=== PATIENT | female | born 1950 | race African-American/Black ===

== ENCOUNTER 2016-11-15 08:19 | Outpatient (CLI) | payer MEDICARE ==
[~2016-11-15] VITALS: Ht 162.6 cm; Wt 84.8 kg
[2016-11-15] VITALS (10 sets, daily range): BP systolic 148–195; BP diastolic 56–80
[2016-11-15] MEDS ORDERED: METO25TA4 PO (08:34)
[2016-11-15] MEDS ORDERED: ATOR20TA58 PO (08:34)
[2016-11-15] MEDS ORDERED: ASPI325T4 PO (08:35)
[2016-11-15] MEDS ORDERED: NITR1PAT9 TD (08:37)
[2016-11-15] MEDS ORDERED: AMLO-254 PO (08:37)
[2016-11-15] MEDS ORDERED: VALS1TAB22 PO (08:37)
[2016-11-15] MEDS ORDERED: MELO-150 PO (08:37)
[2016-11-15 09:10] LABS: BASO # 0.1 x10^3/uL (0.0-0.2); BASO % 1 % (0-3); EOS % 2 % (0-3); HEMATOCRIT 42.3 % (36.0-47.0); HEMOGLOBIN 14.3 g/dL (12.0-15.5); LYMPH # 3.2 x10^3/uL (1.0-4.8); LYMPH % 39 % (24-48); MEAN CORPUSCULAR HEMOGLOBIN 29 pg (25-35); MEAN CORPUSCULAR HGB CONC 34 g/dL (31-37); MEAN CORPUSCULAR VOLUME 86 fL (79-100); MONO % 8 % (0-9); NEUT % 51 % (31-73); PLATELET COUNT 186 x10^3/uL (140-400); RED BLOOD COUNT 4.93 x10^6/uL (3.50-5.40); RED CELL DISTRIBUTION WIDTH 13.8 % (11.5-14.5); WHITE BLOOD COUNT 8.2 x10^3/uL (4.0-11.0)
[2016-11-15 09:25] LABS: CALCIUM 9.2 mg/dL (8.5-10.1); CREATININE 1.2 mg/dL (0.6-1.0); GFR 54.4; POTASSIUM 3.2 mmol/L (3.5-5.1)
[2016-11-15 09:30] LABS: PROTHROMBIN TIME PATIENT 12.8 SEC (11.7-14.0)
[2016-11-15] MEDS ORDERED: IOHEXOL 300 MG/ML 100ML VIAL. ONE (09:53)
[2016-11-15] MEDS ORDERED: LIDOCAINE 1% / SOD BICARB 8.4% 20 ML VIAL. IJ ONE ×2 (09:53→10:30)
[2016-11-15] MEDS ORDERED: IODIXANOL 320MG/ML 50ML VIAL. ONE (09:53)
[2016-11-15] MEDS ORDERED: HEPARIN for ARTERIAL LINE 1,500 ML ONE (09:54)
[2016-11-15] MEDS ORDERED: IODIXANOL 320 MG/ML 100 ML VIAL. ONE (09:54)
[2016-11-15] MEDS ORDERED: MIDAZOLAM HCL/PF 2 MG/2 ML VIAL. ONE (10:14)
[2016-11-15] MEDS ORDERED: FENTANYL PF 100 MCG/2 ML VIAL. ONE (10:14)
--- NOTE | 2016-11-15 10:19 | PDOC ---
MODERATE SEDATION ASSESSMENT RISKS/ALTERNATIVES Risks/Alternatives Risks and alternatives of this type of sedation and procedure discussed with: RISK/ALTERNATIVES: Patient H & P ON CHART H & P H & P on chart and reviewed for co-morbid conditions and appropriate labs. H&P ON CHART: Yes STATUS PREG STATUS ASSESSED: N/A MEDS/ALLERGIES REVIEWED Meds/Allergies Reviewed Medications and Allergies including time and route of recently administered narcotics and sedatives. MEDS/ALLERGIES REVIEWED: Yes ASA RATING ASA RATING: II AIRWAY ASSESSMENT Airway Assessment Airway patency, oral function limitations, presence of caps, crowns, dentures, partials, and ability to extend neck assessed. AIRWAY ASSESSMENT: Yes MALLAMPATI SCORE MALLAMPATI SCORE: II PRE-SEDATION ASSESSMENT PRE-SEDATION ASSESSMENT: Yes MÓNICA ANDREW MD Nov 15, 2016 10:19
--- NOTE | 2016-11-15 10:25 | PDOC1 ---
History and Physical Date of Procedure Date of Admission 11/15/16 Procedure Procedure Abdominal aortogram with bilateral lower extremity angio +/- intervention. Indication Indication 66 YO female smoker, with CAD, HTN, and PAD, with abnormal ABIs and bilateral calf claudication at < 50 feet. Past Medical History Past Medical History See Nursing Pre procedure PMH Past Surgical History Past Surgical History See Nursing Pre procedure PSH. Current Medications Current Medications Current Medications Iodixanol (Visipaque 320) 50 ml STK-MED ONCE .ROUTE ; Start 11/15/16 at 09:53; Stop 11/15/16 at 09:54; Status DC Iohexol (Omnipaque 300 Mg/ml) 100 ml STK-MED ONCE .ROUTE ; Start 11/15/16 at 09: 53; Stop 11/15/16 at 09:54; Status DC Lidocaine/Sodium Bicarbonate 20 ml 20 ml STK-MED ONCE IJ ; Start 11/15/16 at 09: 53; Stop 11/15/16 at 09:54; Status DC Heparin Sodium/ Sodium Chloride 1,500 ml @ As Directed STK-MED ONCE .ROUTE ; Start 11/15/16 at 09:54; Stop 11/15/16 at 09:55; Status DC Iodixanol (Visipaque 320) 100 ml STK-MED ONCE .ROUTE ; Start 11/15/16 at 09:54; Stop 11/15/16 at 09:55; Status DC Fentanyl Citrate (Fentanyl 2ml Vial) 100 mcg STK-MED ONCE .ROUTE ; Start at 10:14; Stop 11/15/16 at 10:15; Status DC Midazolam HCl (Versed) 2 mg STK-MED ONCE .ROUTE ; Start 11/15/16 at 10:14; Stop 11/15/16 at 10:15; Status DC Active Scripts Active Reported NITRO-DUR 0.4mg/hr (Nitroglycerin) 1 Each Patch.td24 1 Each TD Amlodipine-Atorvast 10-10 Mg (Amlodipine/Atorvastatin) 1 Each Tablet 10 Each PO Meloxicam 15 Mg Tablet 1 Tab PO DAILY Diovan Hct 320-25 Mg Tablet (Valsartan/Hydrochlorothiazide) 1 Each Tablet 1 Tab PO DAILY Aspirin 325 Mg Tablet 1 Tab PO DAILY Atorvastatin Calcium 20 Mg Tablet 1 Tab PO DAILY Metoprolol Tartrate 25 Mg Tablet 1 Tab PO BID Allergies Allergies: Coded Allergies: No Known Drug Allergies (Unverified , 11/15/16) Physical Exam Vital Signs Vital Signs Date Time Temp Pulse Resp B/P Pulse Ox O2 Delivery O2 Flow Rate FiO2 11/15/16 09:00 98.1 43 12 168/80 100 Room Air 98.1 Lungs: Clear to auscultation Heart: Regular rate Psych/Mental Status: Mental status NL Vascular 1+ FOREST NURSERY WORKER pulses. Nonpalpable DP/PT pulses. Diagnostic Data/Imaging Images None available Assessment Assessment Hypertensive smoker, with CAD and PAD, with abnormal ABIs and bilateral calf claudication. Problems: Plan Plan Abdominal aortogram with bilateral lower extremity angio +/- intervention. MÓNICA ANDREW MD Nov 15, 2016 10:25
--- NOTE | 2016-11-15 10:26 | PDOC ---
Exam Equipment Superintendent Equipment Superintendent Dominic Desk Operator Desk Operator B Cates Pre-Procedure Diagnosis Pre-Procedure Diagnosis 66 YO female smoker, with CAD, HTN, and PAD, with abnormal ABIs and bilateral calf claudication. Post-Procedure Diagnosis Post-Procedure Diagnosis Bilateral iliac inflow disease. Long segment left SFA chronic occlusion left pop widely patent, with 3 vessel distal r/o Procedure Performed Procedure Performed Abdominal aortogram with left lower extremity angio. Left iliac stent placement Recanalization of left SFA ENGINE LATHE SET UP OPERATOR, with DCB TENTERER. Right lower limb not studied due to contrast limitations Type of Anesthesia Type of Anesthesia Local + Mod sedation Estimated Blood Loss EBL: 50 cc Condition of Patient Condition of Patient Stable. No apparent complication. Disposition Disposition Home from [facility] this afternoon post recovery, if no bleeding or leg ischemia. Plavix daily x 3 months---continue daily ASA indefinitely. Reschedule for right lower extremity angio +/- intervention in 2-4 weeks. Full report to follow. MÓNICA ANDREW MD Nov 15, 2016 10:26
[2016-11-15] MEDS ORDERED: IODIXANOL 320 MG/ML 100 ML VIAL. IART ONE (10:30)
[2016-11-15] MEDS ORDERED: IOHEXOL 300 MG/ML 100ML VIAL. IART ONE (10:30)
[2016-11-15] MEDS ORDERED: FENTANYL PF 100 MCG/2 ML VIAL. IV ONE (10:30)
[2016-11-15] MEDS ORDERED: MIDAZOLAM HCL/PF 2 MG/2 ML VIAL. IV ONE (10:30)
[2016-11-15] MEDS ORDERED: CONTRAST GIVEN MC PRN (10:30)
[2016-11-15] MEDS ORDERED: HEPARIN for IV BOLUS 10,000 UNIT/10 ML VIAL. ONE (11:06)
[2016-11-15] MEDS ORDERED: HEPARIN for IV BOLUS 10,000 UNIT/10 ML VIAL. IV ONE (11:30)
[2016-11-15] MEDS ORDERED: CLOPIDOGREL BISULFATE 75 MG TABLET PO ONE (12:45)
[2016-11-15] MEDS ORDERED: CLOP75TA PO (14:40)
--- NOTE | 2016-11-15 16:35 | RAD ---
Left popliteal fossa region ultrasound, 11/15/2016: History: Swelling, possible hematoma The popliteal fossa region was carefully scanned. Patent popliteal vessels were evident. No abnormal fluid collection is seen to suggest significant hematoma.
[2016-11-16] MEDS ORDERED: CLOPIDOGREL BISULFATE 75 MG TABLET PO SCH (08:00)
--- NOTE | 2016-11-16 13:19 | RAD ---
Abdominal aortogram with selective left lower extremity arteriogram DCB TRIM STENCIL MAKER long segment left SFA chronic total occlusion Left common iliac-external iliac artery stent placement Indication: 66-year-old female smoker with coronary artery disease and hypertension. She has PAD, with reduced ankle-brachial indices bilaterally, and with bilateral calf claudication at less than 50 feet. Diagnostic angiography, with possible intervention, has been requested. Fluoroscopy time: 35.8 minutes Kerma-area Product: 428 Gycm2 Contrast material: 55 cc Omnipaque 300. 135 cc Visipaque 320. Anesthesia: 129 minutes moderate sedation was provided utilizing a total of 5 mg Versed and 250 mcg fentanyl, IV. The patient was appropriately monitored by a qualified independent observer throughout the time of moderate sedation. Consent: The procedure was explained in its entirety to the patient and/or the patient's designated hospital insurance representative by a member of the treatment team. This included a discussion of risks and benefits and commonly accepted alternatives to the procedure, as well as expected consequences of no treatment at all. Discussion of risks included, but was not limited to, those that are most frequent and those that are rare, but possibly severe or life-threatening, as well as the possibility of unforeseen complications. Sterility: All elements of maximal sterile barrier technique were utilized, including cap, mask, sterile gown, sterile gloves, large sterile sheet, appropriate hand hygiene, and 2% chlorhexidine for cutaneous antisepsis. Procedure: Informed consent was obtained from the patient. He was placed supine on the angiography table. Preliminary ultrasound examination of right groin revealed wide patency of right common femoral artery, which was documented with a single hard copy ultrasound image. Right groin was then prepped and draped in the usual sterile fashion, utilizing all elements of maximal sterile barrier technique, as described above. Moderate sedation was provided with IV Versed and fentanyl. Using aseptic technique, local anesthesia, direct ultrasound guidance, and the micropuncture system, a 5 Lithuanian right common femoral artery sheath was successfully introduced. Abdominal aortogram: A 5 Lithuanian Omni Flush catheter was advanced to the right groin sheath into suprarenal abdominal aorta. Omnipaque 300 was injected and abdominal aortogram DSA images were obtained. Findings: Infrarenal abdominal aorta shows atherosclerotic plaquing, including a focal left posterior lateral ulcerative plaque distally. There is no significant stricture or aneurysmal dilatation. There is moderate right and mild left proximal renal artery stenosis. Right kidney appears smaller than contralateral left. CHING is patent, with moderate to high-grade origin stenosis. Oblique pelvis injections: The Omni Flush catheter was withdrawn into distal abdominal aorta, just above bifurcation. Omnipaque 300 was injected and DSA images were obtained in YEMENI and PERES projections. Findings: Aortic bifurcation is widely patent. Focal areas of flow-limiting stenosis lie within a 4-5 cm segment of distal left common iliac artery through proximal left external iliac artery, centered above takeoff of left hypogastric artery, which shows high-grade origin stenosis. Additional moderate stenosis lies within distal left external iliac artery. No significant right common iliac artery stenosis is seen. There is focal ectasia of distal right common iliac artery, near expected takeoff of right hypogastric artery, which is occluded at its origin. There is moderate stenosis within proximal right external iliac artery. Selective left lower extremity arteriogram: The 5 Lithuanian Omni Flush catheter was exchanged for a 4 Lithuanian Cobra 2 catheter, which was advanced across aortic bifurcation over a Glidewire, and was positioned within contralateral left common femoral artery. Visipaque was injected and DSA images were obtained from left groin through left foot. The Cobra catheter was then advanced into proximal left SFA. Visipaque was gently hand injected and DSA images were obtained over left thigh. Findings: Focal calcific plaquing produces moderate narrowing of most distal left common femoral artery and origin of left deep femoral artery. Very small caliber left superficial femoral artery is diffusely and severely diseased, and is completely and chronically occluded within proximal thigh. Multiple deep femoral artery collateral vessels provide reconstitution of distal left SFA, above abductor canal. The reconstituted distal left SFA-popliteal segment is widely patent, without significant stenosis. Left tibial trifurcation is also widely patent, with good three-vessel distal runoff. Recanalization of occluded left SFA: Given this patient's lifestyle limiting calf claudication, decision was made to attempt recanalization of her chronically occluded left superficial femoral artery. The Cobra 2 catheter, previously positioned within the severely diseased proximal left SFA segments was removed over a Acorns advantage guidewire. The 5 Lithuanian right common femoral artery sheath was then exchanged over the advantage wire for a 6 Lithuanian Phil 2 sheath, which was advanced across aortic bifurcation into contralateral left common femoral artery. A Daron Cross catheter was then inserted through the Phil sheath over the advantage wire and was utilized to cross the severely diseased proximal left SFA segment and partially across the chronically occluded mid-distal left SFA segment. The Daron Cross catheter was then exchanged for a 0.035 inch quick cross catheter, which was carefully advanced over a Roadrunner wire through the occluded middistal left SFA segment, into proximal left popliteal artery. Satisfactory intraluminal position of the quick cross catheter within left popliteal artery was confirmed with a contrast injection. 5000 units heparin was then given bolus IV. The quick cross catheter was exchanged over a long grand slam microguidewire for a 2.5 mm x 150 mm Cordis Saber, TRIM STENCIL MAKER balloon, which was utilized to perform initial balloon dilatation from origin left SFA into reconstituted distal left SFA. The saber TRIM STENCIL MAKER balloon was then exchanged over the grand slam wire for a 4 mm x 120 mm Cordis chocolate TRIM STENCIL MAKER balloon, which was utilized to perform prolonged (5 minutes) balloon dilatation of left superficial femoral artery to a peak pressure of 12 maribel. The 4 mm chocolate TRIM STENCIL MAKER balloon was then exchanged over the grand slam wire for a 5 mm x 80 mm chocolate TRIM STENCIL MAKER balloon, which was utilized to perform further prolonged (5 minutes) balloon dilatation of left superficial femoral artery to a peak pressure of 10 maribel. The chocolate TRIM STENCIL MAKER balloon was then deflated and removed. Visipaque was injected through the Phil sheath and post angioplasty DSA images were obtained. These images revealed brisk antegrade flow through the recanalized left superficial femoral artery, without focal significant narrowing, and without complicating dissection. A 5 mm x 150 mm Medtronic's paclitaxel-coated TRIM STENCIL MAKER balloon was then utilized to perform gentle balloon dilatation of middistal left SFA to a peak pressure of 4 maribel for 3 minutes. A new 5 mm x 150 mm Medtronic's paclitaxel-coated TRIM STENCIL MAKER balloon was then utilized to perform balloon dilatation of proximal and mid left superficial femoral artery, again to a peak pressure of 4 maribel for 3 minutes. The drug coated balloon was then deflated and removed. Visipaque was injected through the Phil sheath and completion DSA images were obtained. Those images revealed continued brisk antegrade flow through left SFA-popliteal segment, which was generally small in caliber, but without focal significant stenosis, without flow-limiting dissection, and without distal embolization. Left iliac artery stenting: Following successful recanalization of the chronically occluded left SFA segment, attention was turned to the significant lesions within distal left common iliac and proximal left external iliac arteries. An additional 2500 units heparin was given bolus IV. The 6 Lithuanian Phil 2 sheath, previously positioned within contralateral left common femoral artery, was withdrawn into proximal left common iliac artery over an advantage wire, which was left with this tip within left common femoral artery. Visipaque was injected through the sheath and DSA images were obtained in the PERES projection, well delineating the significant left common-external iliac lesions. A 7 mm x 80 mm conquest TRIM STENCIL MAKER balloon was then advanced through the Ancel sheath over the advantage wire and was utilized to perform preliminary balloon dilatation of the distal common-proximal external iliac stenoses, to a peak pressure of 10 maribel for 3 minutes. The conquest TRIM STENCIL MAKER balloon was then deflated and removed. Post angioplasty images revealed suboptimal angiographic improvement. Therefore, a 10 mm x 60 mm Cordis control Smart stent was advanced through the Ancel sheath over the advantage wire and was successfully deployed across the residual left common iliac-external iliac artery stenoses. Post dilatation of the SMART stent was then performed utilizing a 7 mm x 40 mm conquest TRIM STENCIL MAKER balloon, inflated to a peak pressure of 10 maribel. Post stenting DSA images revealed brisk antegrade flow, with only minimal residual iliac stenosis, without complicating dissection or thrombosis. Right hypogastric artery remained patent, with persistent severe origin stenosis. Patient tolerated the procedures well without apparent complication. Completion physical examination revealed rastafarian of a strongly palpable left dorsalis pedis pulse. The 6 Lithuanian right groin Phil sheath was removed and hemostasis was achieved utilizing the Mynx closure system. Impression: 1. Hemodynamically significant stenoses within distal left common iliac- proximal external iliac artery, for which successful, uneventful percutaneous stenting was performed, following suboptimal percutaneous transluminal angioplasty. 2. 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 3. No abdominal aortic aneurysm. Widely patent left popliteal artery and left tibial trifurcation, with good three-vessel distal runoff. 4. Given bilateral significant claudication, Jazlyn has been tentatively scheduled to return to [facility] IR in 2-4 weeks for angiographic evaluation of right lower extremity, with possible intervention, as indicated.
== END 2016-11-15 16:52 | disposition home or self-care (01) ==
LOC: INTRAD 08:19
PROVIDERS: ATTEND Family Medicine
DX: I73.9 Peripheral vascular disease, unspecified (principal); I70.212 Atherosclerosis of native arteries of extremities with intermittent claudication, left leg; I25.10 Atherosclerotic heart disease of native coronary artery without angina pectoris; I10 Essential (primary) hypertension; E78.00 Pure hypercholesterolemia, unspecified; F41.9 Anxiety disorder, unspecified; F32.9 Major depressive disorder, single episode, unspecified; Z90.710 Acquired absence of both cervix and uterus
CPT/HCPCS: 36415; 37221; 37224; 75625; 75710; 75774; 76882; 76937; 80048; 85027; 85610; C1713; C1725; C1760; C1769; C1892; C1894; C2623; J2250; J3010; Q9967; G0269

== ENCOUNTER 2016-12-13 06:54 | Outpatient (CLI) | payer MEDICARE ==
[2016-12-13] VITALS (10 sets, daily range): BP systolic 155–191; BP diastolic 57–97
[~2016-12-13] VITALS: Ht 162.6 cm; Wt 84.8 kg
[~2016-12-13 06:54] MED LIST: AMLO-254 PO; ASPI325T4 PO; ATOR20TA58 PO; CLOP75TA PO; MELO-150 PO; METO25TA4 PO; NITR1PAT9 TD; VALS1TAB22 PO
[2016-12-13 07:29] LABS: BASO # 0.1 x10^3/uL (0.0-0.2); BASO % 1 % (0-3); EOS % 2 % (0-3); HEMATOCRIT 39.7 % (36.0-47.0); HEMOGLOBIN 13.1 g/dL (12.0-15.5); LYMPH # 2.8 x10^3/uL (1.0-4.8); LYMPH % 37 % (24-48); MEAN CORPUSCULAR HEMOGLOBIN 29 pg (25-35); MEAN CORPUSCULAR HGB CONC 33 g/dL (31-37); MEAN CORPUSCULAR VOLUME 89 fL (79-100); MONO % 8 % (0-9); NEUT % 52 % (31-73); PLATELET COUNT 166 x10^3/uL (140-400); RED BLOOD COUNT 4.48 x10^6/uL (3.50-5.40); RED CELL DISTRIBUTION WIDTH 14.1 % (11.5-14.5); WHITE BLOOD COUNT 7.5 x10^3/uL (4.0-11.0)
[2016-12-13 07:35] LABS: CALCIUM 8.7 mg/dL (8.5-10.1); CREATININE 1.3 mg/dL (0.6-1.0); GFR 49.6; POTASSIUM 3.1 mmol/L (3.5-5.1)
[2016-12-13 07:38] LABS: PROTHROMBIN TIME PATIENT 12.8 SEC (11.7-14.0)
[2016-12-13] MEDS ORDERED: IOHEXOL 300 MG/ML 100ML VIAL. ONE (07:58)
[2016-12-13] MEDS ORDERED: IODIXANOL 320MG/ML 50ML VIAL. ONE (07:58)
[2016-12-13] MEDS ORDERED: HEPARIN for ARTERIAL LINE 1,500 ML ONE (07:59)
[2016-12-13] MEDS ORDERED: LIDOCAINE 1% / SOD BICARB 8.4% 20 ML VIAL. IJ ONE ×2 (07:59→09:15)
[2016-12-13] MEDS ORDERED: IODIXANOL 320 MG/ML 100 ML VIAL. ONE ×2 (07:59→10:03)
[2016-12-13] MEDS ORDERED: MIDAZOLAM HCL/PF 2 MG/2 ML VIAL. ONE (08:45)
[2016-12-13] MEDS ORDERED: HEPARIN for IV BOLUS 10,000 UNIT/10 ML VIAL. ONE (08:46)
[2016-12-13] MEDS ORDERED: fentaNYL PF VIAL 100 MCG/2 ML VIAL ONE (08:46)
[2016-12-13] MEDS ORDERED: MIDAZOLAM HCL/PF 2 MG/2 ML VIAL. IV ONE (09:15)
[2016-12-13] MEDS ORDERED: fentaNYL PF VIAL 100 MCG/2 ML VIAL IV ONE (09:15)
[2016-12-13] MEDS ORDERED: IOHEXOL 300 MG/ML 100ML VIAL. IART ONE ×2 (09:15→11:00)
[2016-12-13] MEDS ORDERED: HEPARIN for IV BOLUS 10,000 UNIT/10 ML VIAL. IV ONE (09:45)
[2016-12-13] MEDS ORDERED: LABETALOL 20 MG/4 ML DISP.SYRIN. ONE (10:27)
[2016-12-13] MEDS ORDERED: LABETALOL 20 MG/4 ML DISP.SYRIN. IVP ONE (10:45)
[2016-12-13] MEDS ORDERED: IODIXANOL 320 MG/ML 100 ML VIAL. IART ONE (11:15)
[2016-12-13] MEDS ORDERED: LABETALOL 20 MG/4 ML DISP.SYRIN. IVP PRN (11:30)
[2016-12-13] MEDS ORDERED: KETOROLAC TROMETHAMINE 30 MG/ML INJ. IV PRN (11:30)
[2016-12-13] MEDS ORDERED: MIDAZOLAM HCL/PF 5 MG/5 ML VIAL. ONE (11:44)
[2016-12-13] MEDS ORDERED: fentaNYL PF VIAL 250 MCG/5 ML VIAL ONE (11:44)
--- NOTE | 2016-12-13 12:39 | PDOC ---
MODERATE SEDATION ASSESSMENT RISKS/ALTERNATIVES Risks/Alternatives Risks and alternatives of this type of sedation and procedure discussed with: RISK/ALTERNATIVES: Patient H & P ON CHART H & P H & P on chart and reviewed for co-morbid conditions and appropriate labs. H&P ON CHART: Yes STATUS PREG STATUS ASSESSED: N/A MEDS/ALLERGIES REVIEWED Meds/Allergies Reviewed Medications and Allergies including time and route of recently administered narcotics and sedatives. MEDS/ALLERGIES REVIEWED: Yes ASA RATING ASA RATING: II AIRWAY ASSESSMENT Airway Assessment Airway patency, oral function limitations, presence of caps, crowns, dentures, partials, and ability to extend neck assessed. AIRWAY ASSESSMENT: Yes MALLAMPATI SCORE MALLAMPATI SCORE: II PRE-SEDATION ASSESSMENT PRE-SEDATION ASSESSMENT: Yes MÓNICA ANDREW MD December 13, 2016 12:39
--- NOTE | 2016-12-13 12:52 | PDOC1 ---
History and Physical Date of Procedure Date of Admission 12/13/16 Procedure Procedure Oblique pelvis + selective rt lower extremity angio +/- intervention, as indicated. Indication Indication 66 yo female with CV risk factors, with known PAD, s/p DCB EMT DISPATCHER of left SFA SLATE PICKER last month for left calf claudication. She represents for angio evaluation +/- endovascular treatment of with persistent right calf claudication. Past Medical History Past Medical History See Nursing Pre procedure PMH Past Surgical History Past Surgical History See Nursing Pre procedure PSH Current Medications Current Medications Current Medications Iodixanol (Visipaque 320) 50 ml STK-MED ONCE .ROUTE ; Start 12/13/16 at 07:58; Stop 12/13/16 at 07:59; Status DC Iohexol (Omnipaque 300 Mg/ml) 100 ml STK-MED ONCE .ROUTE ; Start 12/13/16 at 07: 58; Stop 12/13/16 at 07:59; Status DC Lidocaine/Sodium Bicarbonate (Buffered Lidocaine 1%) 20 ml STK-MED ONCE IJ ; Start 12/13/16 at 07:59; Stop 12/13/16 at 08:00; Status DC Heparin Sodium/ Sodium Chloride 1,500 ml @ As Directed STK-MED ONCE .ROUTE ; Start 12/13/16 at 07:59; Stop 12/13/16 at 08:00; Status DC Iodixanol (Visipaque 320) 100 ml STK-MED ONCE .ROUTE ; Start 12/13/16 at 07:59; Stop 12/13/16 at 08:00; Status DC Midazolam HCl (Versed) 2 mg STK-MED ONCE .ROUTE ; Start 12/13/16 at 08:45; Stop 12/13/16 at 08:46; Status DC Fentanyl Citrate (Fentanyl 2ml Vial) 100 mcg STK-MED ONCE .ROUTE ; Start at 08:46; Stop 12/13/16 at 08:47; Status DC Heparin Sodium (Porcine) (Heparin Sodium) 10,000 unit STK-MED ONCE .ROUTE ; Start 12/13/16 at 08:46; Stop 12/13/16 at 08:47; Status DC Heparin Sodium/ Sodium Chloride 1,000 unit 1X ONCE IART Last administered on t 10:45; Start 12/13/16 at 09:15; Stop 12/13/16 at 09:17; Status DC Lidocaine/Sodium Bicarbonate (Buffered Lidocaine 1%) 20 ml 1X ONCE IJ Last administered on 12/13/16 10:44; Start 12/13/16 at 09:15; Stop 12/13/16 at 09:17 ; Status DC Midazolam HCl (Versed) 2 mg 1X ONCE IV Last administered on 12/13/16 11:12; Start 12/13/16 at 09:15; Stop 12/13/16 at 09:17; Status DC Fentanyl Citrate (Fentanyl 2ml Vial) 100 mcg 1X ONCE IV Last administered on 11:12; Start 12/13/16 at 09:15; Stop 12/13/16 at 09:17; Status DC Iohexol (Omnipaque 300 Mg/ml) 100 ml 1X ONCE IART Last administered on 11:11; Start 12/13/16 at 09:15; Stop 12/13/16 at 09:17; Status DC Heparin Sodium (Porcine) (Heparin Sodium) 5,000 unit 1X ONCE IV Last administered on 12/13/16 11:14; Start 12/13/16 at 09:45; Stop 12/13/16 at 09:46 ; Status DC Iodixanol (Visipaque 320) 100 ml STK-MED ONCE .ROUTE ; Start 12/13/16 at 10:03; Stop 12/13/16 at 10:04; Status DC Labetalol HCl (Normodyne) 20 mg STK-MED ONCE .ROUTE ; Start 12/13/16 at 10:27; Stop 12/13/16 at 10:28; Status DC Labetalol HCl (Normodyne) 20 mg 1X ONCE IVP Last administered on 12/13/16 10: 52; Start 12/13/16 at 10:45; Stop 12/13/16 at 10:46; Status DC Iohexol (Omnipaque 300 Mg/ml) 15 ml 1X ONCE IART ; Start 12/13/16 at 11:00; Stop 12/13/16 at 11:01; Status DC Iodixanol (Visipaque 320) 66 ml 1X ONCE IART Last administered on 12/13/16 11 :18; Start 12/13/16 at 11:15; Stop 12/13/16 at 11:17; Status DC Labetalol HCl (Normodyne) 10 mg PRN Q15MIN PRN IVP HYPERTENSION, SEE COMMENTS; Start 12/13/16 at 11:30; Stop 12/14/16 at 11:29 Clopidogrel Bisulfate (Plavix) 75 mg DAILYWBKFT PO ; Start 12/14/16 at 08:00; Stop 03/16/17 at 08:00 Ketorolac Tromethamine (Toradol) 30 mg 1X PRN PRN IV MODERATE PAIN; Start 12/13 at 11:30; Stop 12/18/16 at 11:29 Midazolam HCl (Versed) 5 mg STK-MED ONCE .ROUTE ; Start 12/13/16 at 11:44; Stop 12/13/16 at 11:45; Status DC Fentanyl Citrate (Fentanyl 5ml Vial) 250 mcg STK-MED ONCE .ROUTE ; Start at 11:44; Stop 12/13/16 at 11:45; Status DC Active Scripts Active Reported Clopidogrel (Clopidogrel Bisulfate) 75 Mg Tablet 1 Tab PO DAILY daily for 3 months NITRO-DUR 0.4mg/hr (Nitroglycerin) 1 Each Patch.td24 1 Each TD Amlodipine-Atorvast 10-10 Mg (Amlodipine/Atorvastatin) 1 Each Tablet 10 Each PO Meloxicam 15 Mg Tablet 1 Tab PO DAILY Diovan Hct 320-25 Mg Tablet (Valsartan/Hydrochlorothiazide) 1 Each Tablet 1 Tab PO DAILY Aspirin 325 Mg Tablet 1 Tab PO DAILY Atorvastatin Calcium 20 Mg Tablet 1 Tab PO DAILY Metoprolol Tartrate 25 Mg Tablet 1 Tab PO BID Allergies Allergies: Coded Allergies: No Known Drug Allergies (Unverified , 11/15/16) Physical Exam Vital Signs Vital Signs Date Time Temp Pulse Resp B/P (MAP) Pulse Ox O2 Delivery O2 Flow Rate FiO2 12/13/16 12:35 50 15 96 Room Air 12/13/16 11:30 3.0 12/13/16 10:52 190/100 12/13/16 07:49 97.7 97.7 Lungs: Clear to auscultation Heart: Regular rate Psych/Mental Status: Mental status NL Vascular 2+ left DP/PT pulses. Nonpalpable right DP/PT pulses. No ischemic foot ulcerations. Diagnostic Data/Imaging Images PMC abdominal aortogram with left leg angio + recanalization of left SFA SLATE PICKER from 11/15/16 reviewed. Moderate left and right EIA stenoses demonstrated on that prior study. Assessment Assessment 66 YO female with CV risk factors, with known PAD, and with persistent right calf claudication. Problems: Plan Plan Oblique pelvis injections to evaluate +/- treat bilateral EIA stenoses. Selective right lower extremity angio +/- intervention upon likely significant rt SFA-POP stenosis/occlusion. MÓNICA ANDREW MD December 13, 2016 12:52
--- NOTE | 2016-12-13 13:04 | PDOC ---
Exam Outside Medical Sales Representative Outside Medical Sales Representative Dominic Scrap Cutter Scrap Cutter B Cates Pre-Procedure Diagnosis Pre-Procedure Diagnosis 66 YO female with CV risk factors, with known PAD, and with persistent right calf claudication. She is s/p endovascular recanalization of left SFA PASTE UP ARTIST last month. She has been rescheduled for angio evaluation of right lower extremity + /- intervention. Post-Procedure Diagnosis Post-Procedure Diagnosis Same. Long segment right SFA-POP PASTE UP ARTIST----Successful Viabahn recanalization. Bilateral EIA moderate 60% stenoses----Successful bilateral Smart stent placement. Procedure Performed Procedure Performed Oblique pelvis angio with selective right lower extremity arteriogram. Viabahn covered stent recanalization of long segment right SFA-POP PASTE UP ARTIST. Bilateral EIA Smart stent placement. Type of Anesthesia Type of Anesthesia Local + Mod sedation Estimated Blood Loss EBL: 50 cc Condition of Patient Condition of Patient Stable. No apparent complication. C/o right thigh pain resulting from right SFA-POP PERIANESTHESIA MANAGER with Viabahn stent deployment--this is not unusual and will likely be self limited. Disposition Disposition Discharge home from [facility] post recovery, if no groin bleeding or leg ischemia. F/u with Dr Grove. Would Rx bilateral lower extremity arterial duplex Doppler U/S surveillance at 3 months, 6 months, and then yearly. DAPT x 3 months. Full report to follow. MÓNICA ANDREW MD December 13, 2016 13:04
--- NOTE | 2016-12-13 15:16 | RAD ---
Oblique pelvis and selective right lower extremity arteriogram NURSE LICENSED PRACTICAL followed by Viabahn covered stenting of long segment right SFA-popliteal chronic total occlusion Right external iliac artery stent placement Left external iliac artery stent placement Indication: 66-year-old female with cardiovascular risk factors, with known PAD, and with persistent right calf claudication. She is status post left common iliac artery stent placement and endovascular recanalization of long segment left SFA chronic total occlusion. She returns now for angiographic evaluation of right lower limb +/- intervention for expected severe right SFA occlusive disease. In addition, the diagnostic arteriogram done last month revealed bilateral external iliac artery stenoses on the order of 60%, for which percutaneous stenting is considered indicated. Fluoroscopy time: 32.1 minutes Kerma-area Product: 394 Gycm2 Contrast material: 15 cc Omnipaque 300. 66 cc Visipaque 320. Anesthesia: 170 minutes moderate sedation was provided utilizing a total of 4. 5 mg Versed and 2.75 mcg fentanyl, IV. The patient was appropriately monitored by a qualified independent observer throughout the time of moderate sedation. Consent: The procedure was explained in its entirety to the patient and/or the patient's designated sales training representative by a member of the treatment team. This included a discussion of risks and benefits and commonly accepted alternatives to the procedure, as well as expected consequences of no treatment at all. Discussion of risks included, but was not limited to, those that are most frequent and those that are rare, but possibly severe or life-threatening, as well as the possibility of unforeseen complications. Sterility: All elements of maximal sterile barrier technique were utilized, including cap, mask, sterile gown, sterile gloves, large sterile sheet, appropriate hand hygiene, and 2% chlorhexidine for cutaneous antisepsis. Procedure: Informed consent was obtained from the patient. She was placed supine on the angiography table. Preliminary ultrasound examination of left groin revealed patency of left common femoral artery, which was documented with a single hard copy ultrasound image. Left groin was then prepped and draped in the usual sterile fashion, utilizing all elements of maximal sterile barrier technique, as described above. Moderate sedation was provided with IV Versed and fentanyl. Using aseptic technique, local anesthesia, direct ultrasound guidance, and the micropuncture system, a 5 Congolese left common femoral artery sheath was successfully introduced. Oblique pelvis injection: A 5 Congolese Omni Flush catheter was advanced through the left groin sheath and was positioned within terminal abdominal aorta, just above bifurcation. Omnipaque 300 was injected and DSA images were obtained over pelvis in the AUSTRALIAN projection. Findings: Mild distal right common iliac artery stenosis and moderate 60% proximal right external iliac artery stenosis are by a short segment of fusiform dilatation, at expected site of completely occluded right hypogastric artery. Right external iliac artery is otherwise widely patent and unremarkable. Previously stented left common iliac artery and proximal left external iliac artery remain widely patent, with continued patency of left hypogastric artery. A focal, moderate, 60% stenosis lies within distal left external iliac artery. Right lower extremity arteriogram: The 5 Congolese Omni Flush catheter was advanced across aortic bifurcation and was positioned within contralateral right common femoral artery. Visipaque was injected and DSA images were obtained from right groin through the proximal-mid calf. Findings: Right common femoral artery and deep femoral artery are widely patent. Proximal 15 cm of right superficial femoral artery is severely and diffusely diseased, followed by abrupt, chronic, total occlusion. Right popliteal artery is reconstituted at abductor canal. Proximal right popliteal artery is diffusely small in caliber, including a focal critical stenosis. Right popliteal artery below upper pole of patella is large in caliber and a widely patent, without significant stenosis. The intervening mid right popliteal artery segment shows generalized 50% narrowing, but without focal lesion. Right tibial trifurcation is widely patent, with three-vessel distal runoff through visualized proximal-mid calf. In the absence of ischemic right foot changes, distal tibial trifurcation runoff was not evaluated to minimize contrast administration. Right SFA-popliteal arterial intervention: Given this patient's significant right calf claudication, the decision was made to proceed with attempted recanalization of her severely disease, long segment right SFA-proximal popliteal artery segment. The Omni Flush catheter, previously positioned within right common femoral artery, was removed over a Eyeonix advantage wire, which was advanced into proximal right SFA. The 5 Congolese left groin sheath was exchanged for a 6 Congolese Phil 2 sheath, which was advanced over the advantage wire across aortic bifurcation into contralateral right common femoral artery. A 0.035 inch quick cross catheter was then inserted through the Ancel sheath over the advantage wire. The quick cross catheter/advantage wire combination was successfully advanced from origin right SFA through mid right SFA segment. The quick cross catheter was then exchanged over the advantage wire for a Daron Cross catheter. The Daron Cross catheter/advantage guidewire combination was then successfully advanced through distal right SFA and proximal right popliteal artery segment into mid right popliteal artery. Satisfactory intraluminal position of the quick cross catheter was confirmed with a contrast injection. Following IV bolus ministration of 5000 is heparin, a Daron Cross catheter was removed over a long grand slam microguidewire. A 2.5 mm x 150 mm Cordis Saber, NURSE LICENSED PRACTICAL balloon was then advanced through the Ancel sheath over the advantage wire and was utilized to perform preliminary balloon dilatation from origin of right SFA through the proximal right popliteal artery. Further balloon dilatation was then sequentially performed utilizing a 3 mm x 120 mm chocolate NURSE LICENSED PRACTICAL balloon, followed by a 5 mm x 120 mm chocolate NURSE LICENSED PRACTICAL balloon. Post angioplasty DSA images revealed recanalization of proximal right SFA through proximal popliteal artery, with persistent areas of significant narrowing and focal dissection. Therefore, Viabahn covered stent placement was considered indicated. A 5 mm x 250 mm Viabahn stent was advanced through the Phil sheath over the grand slam wire and was carefully deployed from proximal right SFA through proximal right popliteal artery. Post dilatation of the Viabahn stent was then performed utilizing a 5 mm x 100 mm Cordis Powerflex NURSE LICENSED PRACTICAL balloon. An overlapping 5 mm x 75 mm Viabahn stent was then successfully deployed across proximal right SFA, with its proximal margin carefully positioned at right SFA origin. Post dilatation of this stent was also performed utilizing the 5 mm x 100 mm Cordis Powerflex NURSE LICENSED PRACTICAL balloon. Visipaque was then injected through the Phil sheath and completion DSA images were obtained. Those images revealed brisk antegrade flow through widely patent, Viabahn stented right SFA-popliteal segment, without complicating dissection, thrombosis, or distal embolization into right tibial trifurcation. Right and left external iliac artery stent placement: Following right SFA-popliteal recanalization, attention was turned to the bilateral 60% external iliac artery stenoses. An additional 2500 units heparin was given bolus IV. The Phil sheath, previously positioned within right common femoral artery was withdrawn over a Eyeonix advantage guidewire into right common iliac artery. A 10 mm x 40 mm Cordis control Smart stent was then advanced over the advantage wire through the Phil sheath and was successfully deployed across the proximal right external iliac artery stenosis. Post dilatation of the stent was then performed utilizing an 8 mm x 40 mm conquest NURSE LICENSED PRACTICAL balloon. The Phil sheath was then further withdrawn over the advantage wire into the most distal segment of ipsilateral left external iliac artery. A 7 mm x 40 mm Cordis control Smart stent was then advanced through the Ancel sheath over the advantage wire, and was carefully deployed across the adjacent 60% distal left external iliac artery stenosis. Post dilatation of this stent was then performed utilizing a 7 mm x 20 mm Cordis extreme NURSE LICENSED PRACTICAL balloon. Completion DSA images revealed wide patency of the external iliac artery stents, without complicating dissection or thrombosis. Patient tolerated the procedure well without apparent complication. Hemostasis was achieved at the left groin puncture site utilizing the Mynx closure system. Impression: 1. Oblique pelvis injection confirmed focal 60% bilateral external iliac artery stenoses, for which successful, uneventful percutaneous stenting was performed, as described 2. Severe long segment right SFA-popliteal chronic occlusive disease, for which successful, uneventful Viabahn covered stenting was performed, as described 3. Widely patent right tibial trifurcation. 4. Dual antiplatelet therapy is recommended for at least 3 months. In addition, I would recommend follow-up arterial duplex Doppler surveillance at 3 months, 6 months, and then yearly.
[2016-12-14] MEDS ORDERED: CLOPIDOGREL BISULFATE 75 MG TABLET PO SCH (08:00)
== END 2016-12-13 14:12 | disposition home or self-care (01) ==
LOC: INTRAD 06:54
PROVIDERS: ATTEND Family Medicine
DX: I70.291 Other atherosclerosis of native arteries of extremities, right leg (principal); E78.00 Pure hypercholesterolemia, unspecified; I10 Essential (primary) hypertension; F41.9 Anxiety disorder, unspecified; I25.10 Atherosclerotic heart disease of native coronary artery without angina pectoris; F32.9 Major depressive disorder, single episode, unspecified; Z72.0 Tobacco use; Z90.710 Acquired absence of both cervix and uterus
CPT/HCPCS: 36415; 37221; 37226; 75710; 75774; 76937; 80048; 85027; 85610; C1713; C1725; C1758; C1769; C1892; C1894; J2250; J3010; J3490; Q9967; G0269

== ENCOUNTER → 2016-12-24 | Outpatient (CLI) | payer MEDICARE ==
[2016-12-13 14:30] VITALS: BP 171/60
--- NOTE | 2016-12-24 08:27 | RAD ---
Indication right thigh pain. Grayscale color Doppler and spectral imaging targeted to the major arterial vessels of the right leg was performed. The right common femoral artery has a monophasic waveform indicative of an inlet disease component. Additionally the peak systolic velocity in the common femoral artery approaches 200 cm/s. Mild stenosis in the vessel is not excluded. The deep femoral artery has a monophasic waveform. Peak systolic velocity is normal. The patient has a stent in the [place] superficial femoral artery which is patent. Monophasic waveforms are seen throughout the stent proximally. This transitions to a biphasic waveform distally in the stent. Monophasic waveform is seen in the popliteal artery. Posterior tibial artery proximally and distally has a monophasic waveform. The peroneal artery similarly is monophasic. Anterior tibial artery has a minimally dampened monophasic waveform with a similar waveform in the dorsal pedal artery. There is a monophasic waveform in the left common femoral artery also indicative of a component of inlet disease IMPRESSION: Probable inlet disease bilaterally. Patent right SFA stent. No high-grade arterial stenosis seen in the major vessels of the right lower extremity
== END | disposition home or self-care (01) ==
LOC: US 08:50
PROVIDERS: ATTEND Family Medicine
DX: M79.651 Pain in right thigh (principal)
CPT/HCPCS: 93926

== ENCOUNTER → 2018-04-16 | Outpatient (CLI) | payer OTHER, MEDICARE ==
[2016-12-13 14:30] VITALS: BP 171/60
[~2018-04-16] MED LIST changes: -AMLO-254 PO; +AMLO-268 PO; -ASPI325T4 PO; +ASPI325T8 PO; -MELO-150 PO; +MELO15TA23 PO
--- NOTE | 2018-04-16 08:31 | RAD ---
Right lower extremity arterial Doppler April 16, 2018 INDICATION: Right thigh pain. COMPARISON: Lower extremity arterial Doppler 21/10/2016. TECHNIQUE: Sonographic evaluation of the right lower extremity arterial system was performed utilizing grayscale, color Doppler and spectral waveform analysis. FINDINGS: Right lower extremity peak systolic velocities: Common femoral artery: 152 cm/s Deep femoral artery: 98 cm/s Superficial femoral artery, proximal: 161 cm/s Superficial femoral artery, mid: 65 cm/s Superficial femoral artery, distal: 85 cm/s Popliteal artery: 52 cm/s Posterior tibial artery, proximal: 66 cm/s Peroneal artery: 53 cm/s Anterior tibial artery: 53 cm/s Dorsalis pedis artery: 42 cm/s ICA thick waveforms are identified from the common femoral artery through the anterior tibial artery. Monophasic waveform identified in the dorsalis pedis artery. A stent is identified involving the common femoral artery and appears patent. Findings overall appear improved since December 24, 2016 with decreased velocities. Scattered areas of atheromatous plaque are noted. IMPRESSION: No evidence for significant stenosis status post stenting graft treatment of the superficial femoral artery. Velocities appear improved since December 24, 2016. Electronically signed by: Abby Arnold MD (04/16/2018 8:27 AM) [id number]
== END | disposition home or self-care (01) ==
LOC: US 06:30
PROVIDERS: ATTEND Family Medicine
DX: I70.291 Other atherosclerosis of native arteries of extremities, right leg (principal); I10 Essential (primary) hypertension; E78.00 Pure hypercholesterolemia, unspecified; I25.10 Atherosclerotic heart disease of native coronary artery without angina pectoris; Z90.710 Acquired absence of both cervix and uterus
CPT/HCPCS: 93926

== ENCOUNTER → 2018-05-11 | Outpatient (CLI) | payer OTHER, MEDICARE ==
[2016-12-13 14:30] VITALS: BP 171/60
[~2018-05-11] MED LIST changes: +BUPIVACAINE MPF 0.5% 10 ML VIAL for KCIC. IJ ONE; +IOHEXOL 300 MG/ML 50 ML VIAL. INT ART ONE; +LIDOCAINE 1% Multi-Dose 20 ML VIAL. ID ONE; +methylPREDNISolone ACETATE 40 MG/ML VIAL. INT ART ONE
--- NOTE | 2018-05-12 09:40 | KCIC ---
PROCEDURE Therapeutic right hip injection using fluoroscopic guidance. HISTORY Hip pain. TECHNIQUE The procedure was explained to the patient as were potential risks, including infection, bleeding or allergic reaction. All questions were answered. Informed written and verbal consent was obtained. The hip was prepped and draped in the usual sterile manner. Following administration of local anesthetic, a 22-gauge spinal needle was advanced into the hip joint without difficulty, with care taken to avoid the vascular structures. Stylet was removed and following negative aspiration, a mixture of 4 cc Omnipaque-300, 2 cc (80 mg) Depo-Medrol, 4 cc bupivacaine and 4 cc 1% lidocaine were injected without difficulty. Fluoroscopy demonstrates uniform and satisfactory distribution of the injection through the hip. The needle was removed. There was good hemostasis at the injection site. The patient left in stable condition without immediate complication. Patient was advised as to potential postprocedural complications and advised to contact their physician or the emergency room in such event. A single spot image was obtained. FLUOROSCOPY TIME: 33 seconds Electronically signed by: Adelso Garcia MD (05/12/2018 9:37 AM) [id number]
== END | disposition home or self-care (01) ==
LOC: KCIC 12:35
PROVIDERS: ATTEND Orthopaedic Surgery Sports Medicine
DX: M25.551 Pain in right hip (principal)
CPT/HCPCS: 20610; 77002; J1030; Q9967

== ENCOUNTER → 2018-07-01 | Outpatient (CLI) | payer OTHER, MEDICARE ==
[2016-12-13 14:30] VITALS: BP 171/60
[~2018-07-01] MED LIST changes: +AMLO10TA6 PO; -BUPIVACAINE MPF 0.5% 10 ML VIAL for KCIC. IJ ONE; +HYDR-2868 PO; -IOHEXOL 300 MG/ML 50 ML VIAL. INT ART ONE; -LIDOCAINE 1% Multi-Dose 20 ML VIAL. ID ONE; +NITR1PAT73 TD; -NITR1PAT9 TD; +TRAM50TA PO; -methylPREDNISolone ACETATE 40 MG/ML VIAL. INT ART ONE
[2018-07-01 14:24] LABS: BILIRUBIN,URINE NEGATIVE (NEG); CLARITY,URINE CLEAR; COLOR,URINE YELLOW; NITRITE,URINE NEGATIVE (NEG); PROTEIN,URINE NEGATIVE (NEG-TRACE)
[2018-07-01 14:38] LABS: HYALINE CASTS, URINE MODERATE /HPF; SQUAMOUS EPITHELIAL CELL,UR MANY /LPF
[2018-07-01 14:39] LABS: BACTERIA,URINE MANY /HPF (0-FEW); RBC,URINE RARE /HPF (0-2)
[2018-07-01 14:58] LABS: BASO # 0.1 x10^3/uL (0.0-0.2); BASO % 2 % (0-3); EOS # 0.1 x10^3/uL (0.0-0.7); EOS % 1 % (0-3); HEMATOCRIT 43.9 % (36.0-47.0); LYMPH # 2.4 x10^3/uL (1.0-4.8); LYMPH % 28 % (24-48); MEAN CORPUSCULAR HEMOGLOBIN 30 pg (25-35); MEAN CORPUSCULAR HGB CONC 34 g/dL (31-37); MEAN CORPUSCULAR VOLUME 88 fL (79-100); MONO # 0.7 x10^3/uL (0.0-1.1); MONO % 9 % (0-9); NEUT # 5.1 x10^3uL (1.8-7.7); NEUT % 61 % (31-73); PLATELET COUNT 200 x10^3/uL (140-400); RED BLOOD COUNT 4.98 x10^6/uL (3.50-5.40); RED CELL DISTRIBUTION WIDTH 14.3 % (11.5-14.5); WHITE BLOOD COUNT 8.4 x10^3/uL (4.0-11.0)
[2018-07-01 15:07] LABS: PROTHROMBIN TIME PATIENT 13.8 SEC (11.7-14.0)
[2018-07-01 15:11] LABS: ALBUMIN 3.5 g/dL (3.4-5.0); CALCIUM 9.7 mg/dL (8.5-10.1); CREATININE 1.2 mg/dL (0.6-1.0); GFR 54.2; POTASSIUM 3.1 mmol/L (3.5-5.1)
--- NOTE | 2018-07-01 16:22 | RAD ---
EXAM: Chest, 2 views. HISTORY: Preoperative evaluation. Pain. COMPARISON: None. FINDINGS: 2 views the chest are obtained. There is no infiltrate, pleural effusion or pneumothorax. The heart is normal in size. IMPRESSION: No acute pulmonary finding. Electronically signed by: Paola Garcia MD (07/01/2018 4:18 PM) [email or web address]
== END | disposition home or self-care (01) ==
LOC: SURGPAT 13:49
PROVIDERS: ATTEND Orthopaedic Surgery Sports Medicine
DX: Z01.818 Encounter for other preprocedural examination (principal); M16.11 Unilateral primary osteoarthritis, right hip
CPT/HCPCS: 36415; 71046; 80048; 81001; 82040; 85025; 85610; 85651; 85730; 87086; 87641

== ENCOUNTER 2018-07-13 06:20 | Inpatient (IN) | payer OTHER, MEDICARE ==
[~2018-07-13] VITALS: Ht 158.8 cm; Wt 93.4 kg
[2018-07-13] VITALS (8 sets, daily range): BP systolic 122–164; BP diastolic 67–82
[~2018-07-13 06:20] MED LIST changes: +HYDROcodone/APAP 7.5/325MG 1 TAB TABLET PO PRN; +MELOXICAM 7.5 MG TABLET PO PRN; +TRANEXAMIC ACID 1,000 MG in IV NS 50ML -- 1ST BAG INJ ONE; +TV=100ml MORPHINE 5 MG, KETOROLAC 30 MG, ROPIVacaine 0.5% PF 60 ML, EPINEPH... INT ART ONE
[2018-07-13] MEDS ORDERED: ROCURONIUM 50 MG/5 ML VIAL. ONE (07:08)
[2018-07-13] MEDS ORDERED: ONDANSETRON PF 4 MG/2 ML VIAL. ONE (07:08)
[2018-07-13] MEDS ORDERED: MIDAZOLAM HCL/PF 2 MG/2 ML VIAL. ONE (07:08)
[2018-07-13] MEDS ORDERED: DEXAMETHASONE SOD PHOS 20 MG/5 ML VIAL. ONE (07:08)
[2018-07-13] MEDS ORDERED: LIDOCAINE 2% PF Vial for OR 5 ML VIAL. ONE (07:08)
[2018-07-13] MEDS ORDERED: fentaNYL PF VIAL 100 MCG/2 ML VIAL ONE ×2 (07:08→08:09)
[2018-07-13] MEDS ORDERED: FAMOTIDINE 20 MG/2 ML VIAL ONE (07:08)
[2018-07-13] MEDS ORDERED: PROCHLORPERAZINE 10 MG/2 ML VIAL. IV PRN (07:15)
[2018-07-13] MEDS ORDERED: PROCHLORPERAZINE 5 MG TABLET. PO PRN (07:15)
[2018-07-13] MEDS ORDERED: MORPHINE SULFATE 4 MG/ML VIAL. IV PRN (07:15)
[2018-07-13] MEDS ORDERED: 0.9 % SODIUM CHLORIDE 10 ML DISP.SYRIN. IV PRN (07:15)
[2018-07-13] MEDS ORDERED: ZOLPIDEM 5 MG TABLET. PO PRN (07:15)
[2018-07-13] MEDS ORDERED: diphenhydrAMINE 50 MG/ML VIAL IV PRN (07:15)
[2018-07-13] MEDS ORDERED: DEXTROSE 50% 25 GM / 50ML DISP.SYRIN. IV PRN (07:15)
[2018-07-13] MEDS ORDERED: CALCIUM CARBONATE 500 MG TAB.CHEW PO PRN (07:15)
[2018-07-13] MEDS ORDERED: fentaNYL PF VIAL 100 MCG/2 ML VIAL IV PRN ×2 (07:15)
[2018-07-13] MEDS ORDERED: METOCLOPRAMIDE HCL 10 MG/2 ML VIAL. IV PRN (07:15)
[2018-07-13] MEDS ORDERED: MORPHINE SULFATE 2 MG/ML VIAL. IV PRN ×2 (07:15→09:30)
[2018-07-13] MEDS ORDERED: oxyCODONE IR 5 MG TABLET PO PRN (07:15)
[2018-07-13] MEDS: IV RINGERS,LACTATED 1000ML 1,000 ML IV SCH ×2 (07:19→20:35)
[2018-07-13] MEDS ORDERED: TRANEXAMIC ACID 1,000 MG in IV NS 50ML -- 2ND BAG INJ ONE (08:00)
[2018-07-13] MEDS ORDERED: LABETALOL 20 MG/4 ML DISP.SYRIN. IVP ONE (08:07)
[2018-07-13] MEDS ORDERED: NEOSTIGMINE METHYLSULFATE 5 MG/5 ML SYRINGE. ONE (08:47)
[2018-07-13] MEDS ORDERED: GLYCOPYRROLATE 1 MG/5 ML VIAL. ONE (08:47)
[2018-07-13] MEDS ORDERED: NON FORMULARY ITEM (Valsartan/Hydrochlorothiazide (Diovan Hct 320-25 Mg Tablet) 1 TAB) PO SCH (09:00)
[2018-07-13] MEDS ORDERED: SEVOFLURANE 61 TO 120 MINUTES. IH ONE (09:07)
[2018-07-13] MEDS ORDERED: IV RINGERS,LACTATED 1000ML 1,000 ML IV SCH (09:24)
--- NOTE | 2018-07-13 09:27 | PDOC4 ---
Operative Note Operative Note Date of procedure: 07/13/2018 Surgeon: Nadir Ortizt.: Manuel Hunter, LORY Preoperative diagnosis: Advanced right hip primary degenerative joint disease Postoperative diagnosis: Same Procedure performed: Right total hip arthroplasty Anesthesia: Gen. Findings: Advanced primary degenerative joint disease of right hip Blood loss: 100 mL Complications: None Components inserted: Carroll and nephew anthology size 1 standard offset stem with a 50 mm R3 acetabular shell and a 20 posteriorly directed elevated liner, 32+0 cobalt chrome head Reason for procedure: Patient is a very pleasant individual who had seen and evaluated in my outpatient orthopedic surgery clinic. Clinical and radiographic examination were consistent with the above preoperative diagnosis and after discussion of the risks, benefits, alternatives, they wish proceed with the operation. Description of procedure: Patient was greeted in the preoperative area by myself for the correct extremity was verified and marked. Patient was taken back to the operative suite, antibiotic started as a were brought back. Once in the operating room, the patient was transferred gently supine to the operating table and secured the bed with all pressure points padded after successful induction of a general anesthetic and they were positioned in the lateral decubitus position with the operative side up. Down pressure points were padded. Patient secured to the bed with our hip positioning device. Axillary roll was used. Standard preoperative timeout was conducted. Right lower extremity was prepped and draped in our usual sterile fashion including an [place]. I palpated and marked surface anatomy and rancho a line for my planned posterolateral skin incision. Skin was incised scalpel and dissected subcutaneous tissue until identified the fascia with electrocautery. Hemostasis was achieved also with electrocautery. The fascia was incised in line with the skin incision and gluteus gustavo split bluntly in line with its fibers,after a Whaley elevator was used to sweep aside adherent subcutaneous tissue for later identification and repair. I then placed the Charnley retractor. After this, I swept bursal tissue posteriorlyand took down the quadratus and piriformis and take the piriformis for later repair. The hip capsule was incised in a T-type incision and ends of this were tagged as well. I dislocated the hip and made miranda at the greater and lesser trochanters as well as center femoral head and measured my length and offset. I then palpated and made my neck cut 1 cm proximal lesser trochanter delivered the bony remnant and head from the operative field. I then inspected the acetabulum. Identified her transverse acetabular ligament. I removed soft tissue from the floor of the acetabulum. Some of the labrum was excised. I then positioned my acetabular retractors and began reaming, I reamed up to a 50 which gave a good punctate bleeding bony bed. After this, I thoroughly irrigated the operative field and impacted my cup in a position referencing her [place]ct[place] anatomy and the crossbar attachment. After seating it, I palpated for her greater sciatic notch and then placed a screw into her posterior column. I then irrigated everything out again and impacted my polyethylene liner into position. I then repositioned the leg, placed my proximal femoral elevator, and used my jennifer cutting osteotome followed by my lateralizing reamer followed by my canal finding reamer. I then began broaching and broached to a size 2, but was reduced the hip with a head and neck in place with the size [address] and therefore remove the size 2, replaced the size 1 placed the standard neck and trialed different head sizes. With the +0, I was able to reduce her hip. I felt her leg lengths were appropriate. This helped restore my measurements. She had good range of motion and stability. I then removed all trial components and thoroughly irrigated the femoral canal and impacted my size 1 stem into position. I then re-trialed but selected the + 0. I redislocated the hip and washed and dried the Bethea taper region and then impacted my cobalt chrome head and position. I irrigated the operative field again and then reduced the hip. I then closed capsule after testing range of motion stability and leg lengths. Capsule was closed with simple interrupted #2 Ethibond. Piriformis was reapproximated through drill tunnels. I then injected my periarticular mixture into the jose rafael-incisional soft tissues. Fascia was closed with running #2 Quill . Inverted interrupted #1 Vicryl was used for the deep subcutaneous tissue and inverted interrupted 2-0 Vicryl was used for the more superficial subcutaneous tissue. Running 4-0 Monocryl in a buried subcuticular fashion was used for skin. Prior to wound closure, all counts correct 2. No complications. At the conclusion of the surgery, the hip was cleansed and dried and our incisional wound VAC was applied. Patient was laid supine and transferred gently supine to the hospital bed. Patient was then taken to the PACU in a stable and extubated condition.Postoperative plan is to admit the patient to the [facility] for DVT and about a prophylaxis as well as to begin their rehabilitation. NADIR BACA II, MD Jul 13, 2018 09:27
[2018-07-13] MEDS ORDERED: ONDANSETRON PF 4 MG/2 ML VIAL. IV PRN (09:30)
[2018-07-13] MEDS ORDERED: HYDROmorphone 2 MG/ML VIAL IV PRN (09:30)
[2018-07-13] MEDS ORDERED: LIDOCAINE 1% PF 2 ML VIAL. ID PRN (09:30)
[2018-07-13] MEDS ORDERED: IPRATRPIUM/ALBUTEROL 0.5/2.5MG 3 ML NEBU. ONE (09:36)
[2018-07-13] MEDS: fentaNYL PF VIAL 100 MCG/2 ML VIAL IV PRN ×5 (09:50→11:10)
--- NOTE | 2018-07-13 10:57 | RAD ---
PELVIS Clinical Indication: POST-OP RIGHT HIP Comparison: AP pelvis and right hip, May 05, 2018. Findings: There is new right hip arthroplasty. On single AP view the alignment is anatomic. No acute fracture is identified. There is subcutaneous air lateral to the right hip. Left hip joint appears intact. There are multiple phleboliths in the pelvis. There are bilateral iliac artery stents. There are stents of the right femoral artery. IMPRESSION: Post right hip arthroplasty. No acute fracture. Electronically signed by: Pantera Lazo MD (07/13/2018 10:53 AM) [id number]
[2018-07-13] MEDS ORDERED: IPRATRPIUM/ALBUTEROL 0.5/2.5MG 3 ML NEBU. NEB PRN (11:30)
[2018-07-13] MEDS ORDERED: IV NORMAL SALINE 1000ML BAG 1,000 ML IV SCH (12:00)
[2018-07-13] MEDS: ONDANSETRON PF 4 MG/2 ML VIAL. IV SCH ×3 (12:00→16:06)
[2018-07-13] MEDS: ONDANSETRON ODT 4 MG TAB.RAPDIS. PO SCH ×2 (12:00→18:00)
[2018-07-13] MEDS: INSULIN LISPRO 300 UNITS/3 ML INSULN.PEN. SQ SCH ×2 (12:00→16:13)
[2018-07-13] MEDS ORDERED: WARFARIN 7.5 MG TABLET. PO ONE (16:00)
[2018-07-13] MEDS: FERROUS SULFATE 325 MG TABLET. PO SCH (16:14)
[2018-07-13] MEDS: ATORVASTATIN CALCIUM 20 MG TABLET PO SCH (20:24)
[2018-07-13] MEDS: hydrALAZINE 25 MG TABLET PO SCH (20:25)
[2018-07-13] MEDS: METOPROLOL TART IMMED RELEASE 25 MG TABLET. PO SCH (20:26)
[2018-07-14] MEDS: ONDANSETRON ODT 4 MG TAB.RAPDIS. PO SCH ×3 (00:45→06:48)
[2018-07-14] MEDS: ONDANSETRON PF 4 MG/2 ML VIAL. IV SCH ×2 (00:45→06:47)
[2018-07-14] MEDS: oxyCODONE IR 5 MG TABLET PO PRN ×3 (00:57→14:22)
[2018-07-14 01:25] VITALS: BP 153/66
[2018-07-14 05:05] LABS: PROTHROMBIN TIME PATIENT 15.6 SEC (11.7-14.0)
[2018-07-14] MEDS ORDERED: MAGNESIUM HYDROXIDE 2,400 MG/30 ML ORAL.SUSP. PO PRN (06:00)
[2018-07-14] MEDS: traMADol 50 MG TABLET PO SCH ×4 (06:47→23:43)
[2018-07-14 07:00] VITALS: BP 143/81
[2018-07-14] MEDS: INSULIN LISPRO 300 UNITS/3 ML INSULN.PEN. SQ SCH ×3 (07:32→17:00)
[2018-07-14] MEDS: FERROUS SULFATE 325 MG TABLET. PO SCH ×2 (07:53→17:52)
[2018-07-14] MEDS: SENNOSIDES/DOCUSATE 8.6/50MG TABLET. PO SCH (07:53)
[2018-07-14] MEDS: MULTIVITAMIN with MINERAL TABLET. PO SCH (07:53)
[2018-07-14] MEDS: ACETAMINOPHEN 500 MG TABLET PO SCH ×3 (07:53→20:51)
[2018-07-14] MEDS: MELOXICAM 7.5 MG TABLET PO SCH (07:54)
[2018-07-14] MEDS: POLYETHYLENE GLYCOL 3350 17 GM PACKET. PO PRN (07:59)
[2018-07-14] MEDS: hydroCHLOROthiazide 25 MG TABLET PO SCH (08:00)
[2018-07-14] MEDS: LOSARTAN POTASSIUM 50 MG TABLET. PO SCH (08:00)
[2018-07-14] MEDS: hydrALAZINE 25 MG TABLET PO SCH ×2 (08:00→20:45)
[2018-07-14] MEDS: amLODIPine BESYLATE 10 MG TABLET PO SCH (08:01)
[2018-07-14] MEDS: METOPROLOL TART IMMED RELEASE 25 MG TABLET. PO SCH ×2 (08:01→20:46)
[2018-07-14 08:06] VITALS: BP 145/94
--- NOTE | 2018-07-14 08:39 | PDOC ---
ORTHO PROGRESS NOTES Subjective Had trouble moving foot last night, but resolved now, pain ok Vitals Vital Signs Date Time Temp Pulse Resp B/P (MAP) Pulse Ox O2 Delivery O2 Flow Rate FiO2 07/14/18 08:06 65 145/94 (111) 07/14/18 07:54 Room Air 07/14/18 07:37 20 07/14/18 07:00 98.2 96 98.2 07/14/18 01:59 2.0 Labs Laboratory Tests Test 07/13/18 06:30 07/13/18 06:55 07/13/18 09:59 07/13/18 16:09 Prothrombin Time 13.0 SEC (11.7-14.0) Prothromb Time International Ratio 1.0 (0.8-1.1) Activated Partial Thromboplast Time 35 SEC (24-38) Glucose (Fingerstick) 107 mg/dL (70-99) 144 mg/dL (70-99) 112 mg/dL (70-99) Test 07/13/18 21:24 07/14/18 04:35 07/14/18 04:40 07/14/18 06:55 Glucose (Fingerstick) 136 mg/dL (70-99) 123 mg/dL (70-99) Hemoglobin 13.0 g/dL (12.0-15.5) Hematocrit 40.0 % (36.0-47.0) Mean Corpuscular Hemoglobin Concent 32 g/dL (31-37) Prothrombin Time 15.6 SEC (11.7-14.0) Prothromb Time International Ratio 1.3 (0.8-1.1) Laboratory Tests Test 07/13/18 09:59 07/13/18 16:09 07/13/18 21:24 07/14/18 04:35 Glucose (Fingerstick) 144 mg/dL (70-99) 112 mg/dL (70-99) 136 mg/dL (70-99) Hemoglobin 13.0 g/dL (12.0-15.5) Hematocrit 40.0 % (36.0-47.0) Mean Corpuscular Hemoglobin Concent 32 g/dL (31-37) Test 07/14/18 04:40 07/14/18 06:55 Prothrombin Time 15.6 SEC (11.7-14.0) Prothromb Time International Ratio 1.3 (0.8-1.1) Glucose (Fingerstick) 123 mg/dL (70-99) Notes A and A normal motor and sensation in RLE dressing intact Assessment and Plan PT/OT as normal TONY BACA II, MD Jul 14, 2018 08:39
[2018-07-14] MEDS ORDERED: ONDANSETRON PF 4 MG/2 ML VIAL. IV PRN (12:00)
[2018-07-14] MEDS ORDERED: ONDANSETRON ODT 4 MG TAB.RAPDIS. PO PRN (12:00)
[2018-07-14] MEDS ORDERED: BISACODYL 10 MG SUPP.RECT. PR PRN (16:00)
[2018-07-14] MEDS ORDERED: WARFARIN 5 MG TABLET. PO ONE (16:00)
[2018-07-14 18:21] VITALS: BP 132/86
[2018-07-14] MEDS: ATORVASTATIN CALCIUM 20 MG TABLET PO SCH (20:45)
[2018-07-15] MEDS: ACETAMINOPHEN 500 MG TABLET PO SCH ×4 (03:18→20:41)
[2018-07-15] MEDS: traMADol 50 MG TABLET PO SCH ×3 (05:29→18:09)
[2018-07-15 06:12] LABS: HEMATOCRIT 35.5 % (36.0-47.0); HEMOGLOBIN 11.9 g/dL (12.0-15.5)
[2018-07-15 06:23] LABS: PROTHROMBIN TIME PATIENT 18.9 SEC (11.7-14.0)
[2018-07-15 06:24] VITALS: BP 122/82
[2018-07-15] MEDS: POLYETHYLENE GLYCOL 3350 17 GM PACKET. PO PRN (07:08)
[2018-07-15] MEDS: hydroCHLOROthiazide 25 MG TABLET PO SCH (07:53)
[2018-07-15] MEDS: METOPROLOL TART IMMED RELEASE 25 MG TABLET. PO SCH ×2 (07:54→20:42)
[2018-07-15] MEDS: MULTIVITAMIN with MINERAL TABLET. PO SCH (07:54)
[2018-07-15] MEDS: hydrALAZINE 25 MG TABLET PO SCH ×2 (07:55→20:41)
[2018-07-15] MEDS: FERROUS SULFATE 325 MG TABLET. PO SCH ×2 (07:55→16:43)
[2018-07-15] MEDS: SENNOSIDES/DOCUSATE 8.6/50MG TABLET. PO SCH (07:55)
[2018-07-15] MEDS: MELOXICAM 7.5 MG TABLET PO SCH (07:55)
[2018-07-15] MEDS: amLODIPine BESYLATE 10 MG TABLET PO SCH (07:56)
[2018-07-15] MEDS: LOSARTAN POTASSIUM 50 MG TABLET. PO SCH (07:56)
[2018-07-15] MEDS: INSULIN LISPRO 300 UNITS/3 ML INSULN.PEN. SQ SCH ×3 (07:56→17:00)
[2018-07-15] MEDS ORDERED: MAGNESIUM HYDROXIDE 2,400 MG/30 ML ORAL.SUSP. PO PRN (10:00)
--- NOTE | 2018-07-15 12:32 | DISCH ---
DISCHARGE WITH HOME HEALTH DISCHARGE INFORMATION: Discharge Date: Jul 16, 2018 Final Diagnosis: Advanced right hip primary degenerative joint disease Condition on Discharge: Stable CODE STATUS: Code Status: Full HOME HEALTH: Face to Face: I certify this patient is under my care and that I, or a nurse practitioner or physician's assistant director of plant operations working with me, had a face to face encounter that meets the physician face to face encounter requirements with this patient on []. Medical Complications: S/P Joint Replacement Physical Therapy For: Evalulation/Treatment Occupational Therapy For: Evaluation/Treatment Pt Meets Homebound Status: Poor coordination w/ amb., Unsteady balance w/ amb, POST DISCHARGE ORDERS: Activity Instructions for Disc: Activity as tolerated Weight Bearing Status after Di: No restrictions Wound/Incision Care: Keep wound/cast CDI FOLLOW-UP: Follow up with: Zofia in 2wks Warfarin Follow UP: Pharmacy CERTIFICATION STATEMENT: Certification Statement: Certification Statement: Based on the above finding, I certify that this patient is confined to the home and needs intermittent custodial care, physical therapy and/or speech therapy, or continues to need occupational therapy.~ This patient is under my care, and I have initiated the establishment of the plan of care.~ This patient will be followed by myself or a community physician who will periodically review the plan of care. Home Meds Reported Medications Hydralazine Hcl (HYDRALAZINE HCL) 25 Mg Tablet, 1 TAB PO BID for BLOOD PRESSURE CONTROL, #180 TAB 3 Refills 06/24/18 Amlodipine Besylate (AMLODIPINE BESYLATE) 10 Mg Tablet, 10 MG PO DAILY for BLOOD PRESSURE CONTROL, TAB 06/24/18 Tramadol Hcl (TRAMADOL HCL) 50 Mg Tablet, 50 MG PO DAILY PRN for PAIN, TAB 06/24/18 Valsartan/Hydrochlorothiazide (DIOVAN HCT 320-25 MG TABLET) 1 Each Tablet, 1 TAB PO DAILY, #30 TAB 5 Refills 11/15/16 Atorvastatin Calcium (ATORVASTATIN CALCIUM) 20 Mg Tablet, 1 TAB PO DAILY, #30 TAB 5 Refills 11/15/16 Metoprolol Tartrate (METOPROLOL TARTRATE) 25 Mg Tablet, 1 TAB PO BID, #180 TAB 1 Refill 11/15/16 Discontinued Reported Medications Aspirin (ASPIRIN) 325 Mg Tablet, 1 TAB PO DAILY, #30 TAB 5 Refills 11/15/16 TONY BACA II, MD Jul 15, 2018 12:32
--- NOTE | 2018-07-15 12:33 | PDOC ---
ORTHO PROGRESS NOTES Subjective Her pain is doing better today. She feels like she is making good progress with therapy no new complaints Vitals Vital Signs Date Time Temp Pulse Resp B/P (MAP) Pulse Ox O2 Delivery O2 Flow Rate FiO2 07/15/18 12:07 Room Air 07/15/18 07:56 91 122/82 07/15/18 06:30 20 07/15/18 06:24 98.1 97 98.1 Labs Laboratory Tests Test 07/13/18 16:09 07/13/18 21:24 07/14/18 04:35 07/14/18 04:40 Glucose (Fingerstick) 112 mg/dL (70-99) 136 mg/dL (70-99) Hemoglobin 13.0 g/dL (12.0-15.5) Hematocrit 40.0 % (36.0-47.0) Mean Corpuscular Hemoglobin Concent 32 g/dL (31-37) Prothrombin Time 15.6 SEC (11.7-14.0) Prothromb Time International Ratio 1.3 (0.8-1.1) Test 07/14/18 06:55 07/15/18 04:40 07/15/18 07:21 Glucose (Fingerstick) 123 mg/dL (70-99) 109 mg/dL (70-99) Hemoglobin 11.9 g/dL (12.0-15.5) Hematocrit 35.5 % (36.0-47.0) Mean Corpuscular Hemoglobin Concent 33 g/dL (31-37) Prothrombin Time 18.9 SEC (11.7-14.0) Prothromb Time International Ratio 1.6 (0.8-1.1) Laboratory Tests Test 07/15/18 04:40 07/15/18 07:21 Hemoglobin 11.9 g/dL (12.0-15.5) Hematocrit 35.5 % (36.0-47.0) Mean Corpuscular Hemoglobin Concent 33 g/dL (31-37) Prothrombin Time 18.9 SEC (11.7-14.0) Prothromb Time International Ratio 1.6 (0.8-1.1) Glucose (Fingerstick) 109 mg/dL (70-99) Notes She is awake and alert and in therapy. Normal motor and sensation right lower extremity. Dressing is intact Assessment and Plan Home with home health care tomorrow. She will continue PT and OT and Coumadin TONY BACA II, MD Jul 15, 2018 12:33
[2018-07-15] MEDS: oxyCODONE IR 5 MG TABLET PO PRN (12:52)
--- NOTE | 2018-07-15 14:12 | PATHOLOGY ---
[facility] Accession Number: [id number] . 01 Material submitted: . RIGHT HIP BONE . 01 Clinical history: . Osteoarthritis right hip . 02 Diagnosis: Femoral head, right total hip replacement: - Advanced degenerative arthritis. (JPM:briseida; 07/15/2018) QMS/07/15/2018 . 02 Comment: There is no evidence of malignancy. . 02 Electronically signed: . Niraj Jeffers MD, Pathologist NPI- [id number] . 01 Gross description: . Received in formalin labeled "Jazlyn Acharya, right hip bone," is a femoral head measuring 4.5 x 4.5 x 5.8 cm in greatest dimensions. The articular surface is smooth to granular and pale thakkar to dark brown in appearance, displaying an area of focal eburnation measuring 1.8 x 0.6 cm. Sectioning reveals cancellous, pale yellow to largely hemorrhagic cut surfaces. The specimen is submitted representatively in cassette A1, following decalcification. (DAC; 07/14/2018) XDC/XDC . 02 Pathologist provided ICD-10: M16.11 . 02 CPT . 316150, [id number] Specimen Comment: A courtesy copy of this report has been sent to Specimen Comment: [phone], . Specimen Comment: Report sent to / DR HOLLINGSWORTH Performed at: 01 [facility] [address], [place] [id number] MD Paul Bell MD Phone: [phone] Performed at: 02 [facility] [address], [place] [id number] MD Niraj Jeffers MD Phone: [phone]
[2018-07-15] MEDS ORDERED: WARFARIN 3 MG TABLET. PO ONE (16:00)
[2018-07-15 18:03] VITALS: BP 137/82
[2018-07-15] MEDS: ATORVASTATIN CALCIUM 20 MG TABLET PO SCH (20:40)
[2018-07-15] MEDS ORDERED: MORPHINE SULFATE 4 MG/ML VIAL. IV PRN (22:10)
[2018-07-16] MEDS: traMADol 50 MG TABLET PO SCH ×3 (00:29→11:52)
[2018-07-16] MEDS: ACETAMINOPHEN 500 MG TABLET PO SCH ×2 (03:36→09:16)
[2018-07-16 05:42] LABS: HEMATOCRIT 37.3 % (36.0-47.0); HEMOGLOBIN 12.5 g/dL (12.0-15.5)
[2018-07-16 05:58] LABS: PROTHROMBIN TIME PATIENT 19.4 SEC (11.7-14.0)
[2018-07-16 07:00] VITALS: BP 131/83
[2018-07-16] MEDS: INSULIN LISPRO 300 UNITS/3 ML INSULN.PEN. SQ SCH ×2 (08:00→11:49)
--- NOTE | 2018-07-16 08:54 | PDOC ---
ORTHO PROGRESS NOTES Subjective She tells me she rested well. She feels that her pain is better. Vitals Vital Signs Date Time Temp Pulse Resp B/P (MAP) Pulse Ox O2 Delivery O2 Flow Rate FiO2 07/16/18 07:00 98.1 90 18 131/83 (99) 98 98.1 07/16/18 06:27 Room Air Labs Laboratory Tests Test 07/15/18 04:40 07/15/18 07:21 07/16/18 04:40 Hemoglobin 11.9 g/dL (12.0-15.5) 12.5 g/dL (12.0-15.5) Hematocrit 35.5 % (36.0-47.0) 37.3 % (36.0-47.0) Mean Corpuscular Hemoglobin Concent 33 g/dL (31-37) 33 g/dL (31-37) Prothrombin Time 18.9 SEC (11.7-14.0) 19.4 SEC (11.7-14.0) Prothromb Time International Ratio 1.6 (0.8-1.1) 1.7 (0.8-1.1) Glucose (Fingerstick) 109 mg/dL (70-99) Laboratory Tests Test 07/16/18 04:40 Hemoglobin 12.5 g/dL (12.0-15.5) Hematocrit 37.3 % (36.0-47.0) Mean Corpuscular Hemoglobin Concent 33 g/dL (31-37) Prothrombin Time 19.4 SEC (11.7-14.0) Prothromb Time International Ratio 1.7 (0.8-1.1) Notes She is awake and alert and lying in bed. Dressing is intact. Normal motor and sensation are present in her right lower extremity Assessment and Plan She is okay to be discharged home with home health care today. I will see her back in clinic in 2 weeks TONY BACA II, MD Jul 16, 2018 08:54
--- NOTE | 2018-07-16 08:55 | PDOC3 ---
Discharge Summary Visit Information Date of Admission: Jul 13, 2018 Date of Discharge: Jul 16, 2018 Admitting Diagnosis: advanced right hip primary degenerative joint disease Brief Hospital Course Allergies Allergies Coded Allergies Type Severity Reaction Last Updated Verified No Known Drug Allergies 07/13/18 No Vital Signs Vital Signs Date Time Temp Pulse Resp B/P (MAP) Pulse Ox O2 Delivery O2 Flow Rate FiO2 07/16/18 07:00 98.1 90 18 131/83 (99) 98 98.1 07/16/18 06:27 Room Air Lab Results Laboratory Tests Test 07/15/18 04:40 07/15/18 07:21 07/16/18 04:40 Hemoglobin 11.9 g/dL (12.0-15.5) 12.5 g/dL (12.0-15.5) Hematocrit 35.5 % (36.0-47.0) 37.3 % (36.0-47.0) Mean Corpuscular Hemoglobin Concent 33 g/dL (31-37) 33 g/dL (31-37) Prothrombin Time 18.9 SEC (11.7-14.0) 19.4 SEC (11.7-14.0) Prothromb Time International Ratio 1.6 (0.8-1.1) 1.7 (0.8-1.1) Glucose (Fingerstick) 109 mg/dL (70-99) Laboratory Tests Test 07/16/18 04:40 Hemoglobin 12.5 g/dL (12.0-15.5) Hematocrit 37.3 % (36.0-47.0) Mean Corpuscular Hemoglobin Concent 33 g/dL (31-37) Prothrombin Time 19.4 SEC (11.7-14.0) Prothromb Time International Ratio 1.7 (0.8-1.1) Brief Hospital Course Ms. Acharya is a 67 old female who presented to my outpatient orthopedic surgery clinic with complaints of severe and progressive pain that failed conservative therapies including injections. We had a discussion of the risks, benefits, alternatives to total hip arthroplasty and she elected to proceed. She tolerated surgery well and recovered well from anesthesia in the PACU. She was then taken to the joint Center for care and observation. She did receive PT , OT, DVT and antibiotic prophylaxis. She recovered well from surgery and remained hemodynamically stable and afebrile throughout the hospitalization. Pain was controlled on oral pain medicine at the time of discharge. Good progress was made with therapy throughout the hospitalization, and activities of daily living were accomplished by the patient. The incision was clean dry and intact and the operative extremity had normal motor and sensation. Discharge Information Condition at Discharge: Stable Follow Up: Weeks Disposition/Orders: D/C to Home w/ HH Scheduled Amlodipine Besylate (Amlodipine Besylate) 10 Mg Tablet, 10 MG PO DAILY for BLOOD PRESSURE CONTROL, (Reported) Entered as Reported by: DIANA DUNN on 06/24/181727 Last Taken: Unknown Dose on 07/13/18499 Last Action: Continued on 07/13 by SP BACA MD Atorvastatin Calcium (Atorvastatin Calcium) 20 Mg Tablet, 1 TAB PO DAILY, #30 Ref 5 (Reported) Entered as Reported by: Risa Santos on 11/15/16833 Last Taken: Unknown Dose on 07/12/18 Last Action: Continued on 07/13/18706 by SP BACA MD Hydralazine Hcl (Hydralazine Hcl) 25 Mg Tablet, 1 TAB PO BID for BLOOD PRESSURE CONTROL, #180 Ref 3 (Reported) Entered as Reported by: DIANA DUNN on 06/24/181727 Last Taken: Unknown Dose on 07/13/18499 Last Action: Converted on 07/13 by SP BACA MD Metoprolol Tartrate (Metoprolol Tartrate) 25 Mg Tablet, 1 TAB PO BID, #180 Ref 1 (Reported) Entered as Reported by: Risa Santos on 11/15/16833 Last Taken: Unknown Dose on 07/13/18499 Last Action: Continued on 07/13 by SP BACA MD Valsartan/Hydrochlorothiazide (Diovan Hct 320-25 Mg Tablet) 1 Each Tablet, 1 TAB PO DAILY, #30 Ref 5 (Reported) Entered as Reported by: Risa Santos on 11/15/16836 Last Taken: Unknown Dose on 07/12/18 Last Action: Converted on 07/13/18706 by SP BACA MD Scheduled PRN Tramadol Hcl (Tramadol Hcl) 50 Mg Tablet, 50 MG PO DAILY PRN for PAIN, (Reported ) Entered as Reported by: DIANA DUNN on 06/24/18 1526 Last Taken: Unknown Dose on 07/12/18 Last Action: HELD on 07/13/18706 by SP BACA MD Discontinued Medications Aspirin (Aspirin) 325 Mg Tablet, 1 TAB PO DAILY, #30 Ref 5 (Reported) Entered as Reported by: Risa Danielle on 11/15/16 0835 Last Taken: Unknown Dose on 07/06/18 Last Action: HELD on 07/13/18706 by SP BACA MD Patient Instructions Patient Instructions She will be discharged home. Home health care has been set up. We will get her started on outpatient therapy as soon as we are able. The patient will be on Coumadin for a month. She can weight-bear as tolerated. Worrisome signs and symptoms that should prompt a phone call to my office were discussed. We' ll see her back in 2 weeks, sooner should a problem arise. TONY BACA II, MD Jul 16, 2018 08:55
[2018-07-16] MEDS: MELOXICAM 7.5 MG TABLET PO SCH (09:15)
[2018-07-16] MEDS: FERROUS SULFATE 325 MG TABLET. PO SCH (09:16)
[2018-07-16] MEDS: hydroCHLOROthiazide 25 MG TABLET PO SCH (09:16)
[2018-07-16] MEDS: LOSARTAN POTASSIUM 50 MG TABLET. PO SCH (09:18)
[2018-07-16] MEDS: hydrALAZINE 25 MG TABLET PO SCH (09:18)
[2018-07-16] MEDS: METOPROLOL TART IMMED RELEASE 25 MG TABLET. PO SCH (09:19)
[2018-07-16] MEDS: amLODIPine BESYLATE 10 MG TABLET PO SCH (09:19)
[2018-07-16] MEDS: SENNOSIDES/DOCUSATE 8.6/50MG TABLET. PO SCH (09:19)
[2018-07-16] MEDS: MULTIVITAMIN with MINERAL TABLET. PO SCH (09:19)
[2018-07-16] MEDS ORDERED: TRAM50TA PO (11:27)
[2018-07-16] MEDS ORDERED: WARF4TAB68 PO (12:09)
[2018-07-16] MEDS ORDERED: WARF3TAB54 PO (12:10)
[2018-07-16] MEDS ORDERED: WARFARIN 3 MG TABLET. PO ONE (13:00)
[2018-07-16 14:47] VITALS: BP 122/82
== END 2018-07-16 16:30 | disposition home health service (06) | DRG 470 ==
LOC: OPSVCIP 06:20 → 4 SOUTHEST 11:27
PROVIDERS: ADMIT Orthopaedic Surgery Sports Medicine; ATTEND Orthopaedic Surgery Sports Medicine
PROC: 0SR902Z Replacement of Right Hip Joint with Metal on Polyethylene Synthetic Substitute, Open Approach (ICD-10-PCS; principal; 2018-07-13 07:30)
DX: M16.11 Unilateral primary osteoarthritis, right hip (principal); I10 Essential (primary) hypertension; E78.5 Hyperlipidemia, unspecified; F41.9 Anxiety disorder, unspecified; F32.9 Major depressive disorder, single episode, unspecified; M19.90 Unspecified osteoarthritis, unspecified site; E11.51 Type 2 diabetes mellitus with diabetic peripheral angiopathy without gangrene; Z95.5 Presence of coronary angioplasty implant and graft; Z95.820 Peripheral vascular angioplasty status with implants and grafts; Z90.710 Acquired absence of both cervix and uterus; Z90.722 Acquired absence of ovaries, bilateral; Z90.79 Acquired absence of other genital organ(s); Z82.61 Family history of arthritis; Z82.49 Family history of ischemic heart disease and other diseases of the circulatory system; Z87.891 Personal history of nicotine dependence; Z79.899 Other long term (current) drug therapy; Z79.82 Long term (current) use of aspirin
CPT/HCPCS: 36415; 72170; 82962; 85014; 85018; 85610; 85730; 86850; 86900; 86901; 88304; 88311; 94640; A7015; J0171; J0690; J1100; J1815; J1885; J2001; J2250; J2270; J2405; J2710; J2795; J3010; J3490; J7030; J7120; J7620; Q0162; 97116; 97150; 97530; 97535

== ENCOUNTER 2019-02-01 00:57 | Emergency (ER) | payer OTHER, MEDICARE ==
[~2019-02-01] VITALS: Ht 160 cm; Wt 93.0 kg
[~2019-02-01 00:57] MED LIST changes: -AMLO10TA6 PO; +AMLO10TA8 PO; -HYDROcodone/APAP 7.5/325MG 1 TAB TABLET PO PRN; -MELOXICAM 7.5 MG TABLET PO PRN; -TRANEXAMIC ACID 1,000 MG in IV NS 50ML -- 1ST BAG INJ ONE; -TV=100ml MORPHINE 5 MG, KETOROLAC 30 MG, ROPIVacaine 0.5% PF 60 ML, EPINEPH... INT ART ONE; +WARF3TAB54 PO; +WARF4TAB68 PO
[2019-02-01 01:10] VITALS: BP 149/92
[2019-02-01] MEDS ORDERED: HYDR-3164 PO (02:26)
[2019-02-01] MEDS ORDERED: ORPH100T PO (02:26)
[2019-02-01] MEDS ORDERED: PRED20TA PO (02:26)
--- NOTE | 2019-02-01 02:26 | PHYS DOC ---
Past Medical History Past Medical History: Heart Disease, Hypertension Past Surgical History: Hysterectomy, Other Additional Past Surgical Histo: Total R hip, 2 stents R groin, 1 stent L groin, 2 cardiac stents, L breast Alcohol Use: None Drug Use: None Adult General Chief Complaint Chief Complaint: LOWER EXT PAIN HPI HPI Patient is a 68 year old female with an extensive past medical history of cardio vascular disease and a right sided total hip arthroplasty in July 2018 who presents with pain down her right hamstring and calf. In addition she complains of right foot paresthesias. She denies any current back pain. She states the pain began shortly after going to the grocery store 6 days ago. She denies any exertional claudication symptoms. The pain is worse with hip and knee extension and with twisting. She states she can no longer lay on her right side due to increased pain. She denies any fever or chills nausea or vomiting. Vitor es trauma. Review of Systems Review of Systems Constitutional: Denies fever or chills Eyes: Denies redness or eye pain HENT: Denies nasal congestion or sore throat Respiratory: Denies cough or shortness of breath Cardiovascular: Denies chest pain or palpitations GI: Denies abdominal pain, nausea, or vomiting : Denies dysuria or hematuria Musculoskeletal: Right leg and calf pain. Denies back pain. Integument: Denies rash or skin lesions Neurologic: Right foot numbness and tingling. Complete systems were reviewed and found to be within normal limits, except as documented in this note. Current Medications Current Medications Current Medications Medications (Trade) Dose Ordered Sig/Rosa Start Time Stop Time Status Last Admin Dose Admin Acetaminophen/ Hydrocodone Bitart (Lortab 5/325) 1 tab 1X ONCE 02/01/19 02:30 02/01/19 02:32 DC 02/01/19 02:37 1 TAB Dexamethasone (Decadron) 10 mg 1X ONCE 02/01/19 02:30 02/01/19 02:32 DC 02/01/19 02:37 10 MG Orphenadrine Citrate (Norflex) 60 mg 1X ONCE 02/01/19 02:30 02/01/19 02:32 DC 02/01/19 02:36 60 MG Allergies Allergies Allergies Coded Allergies Type Severity Reaction Last Updated Verified No Known Drug Allergies 07/13/18 No Physical Exam Physical Exam Constitutional: Well developed, well nourished, no acute distress, non-toxic appearance Eyes: PERRL, EOMI, conjunctiva normal, no discharge Neck: Normal range of motion, no tenderness, supple Cardiovascular: Heart rate normal, regular rhythm Lungs & Thorax: Bilateral breath sounds clear to auscultation, no wheezing Abdomen: Soft, no tenderness Skin: Warm, dry, no erythema, no rash Back: No tenderness, no CVA tenderness Extremities: Decreased ROM and strength in R hip and knee. TTP over R trochanteric bursa. TTP over right calf. Neurologic: Alert and oriented X 3, normal motor function, decreased sensation over right foot. Psychologic: Affect normal, judgement normal, mood normal Current Patient Data Vital Signs Vital Signs Date Time Temp Pulse Resp B/P (MAP) Pulse Ox O2 Delivery O2 Flow Rate FiO2 02/01/19 02:37 18 98 Room Air 02/01/19 01:10 98.2 99 149/92 (111) 98.2 EKG EKG [] Radiology/Procedures Radiology/Procedures [] Course & Med Decision Making Course & Med Decision Making Patient is a 68-year-old female who presents with right leg and calf pain that has been ongoing for 6 days. The patient has no swelling over the right calf. Peripheral pulses are present bilaterally. Imaging was not obtained due to lack of clinical evidence for venous or arterial thrombosis. Patient administered steroids to decrease inflammation. Hydrocodone prescribed to help with pain. Patient educated on risks of dependence due to narcotic abuse. Patient referred to Dr. Kee (pain management) for further diagnostic workup. Patient stable for discharge with outpatient follow-up with PCP. Discussed findings and plan with patient and family, who acknowledge understanding and agreement. Dragon Disclaimer Dragon Disclaimer This electronic medical record was generated, in whole or in part, using a voice recognition dictation system. Departure Departure Impression: Primary Impression: Right leg pain Disposition: 01 HOME, SELF-CARE Condition: STABLE Referrals: SANDRA HOLLINGSWORTH MD (PCP) TONY BACA II, MD, BRIAN N MD Patient Instructions: Pain, Neuropathic, Radicular Pain Scripts Hydrocodone/Apap 5-325 (NORCO 5-325 TABLET) 1 Each Tablet 0.5-1 TAB PO PRN Q6HRS PRN for PAIN, #10 TAB 0 Refills Prov: ENRIQUETA HICKS DO 02/01/19 Orphenadrine Citrate (ORPHENADRINE CITRATE) 100 Mg Tablet.er 1 TAB PO BID, #20 TAB Prov: ENRIQUETA HICKS DO 02/01/19 Prednisone (PREDNISONE) 20 Mg Tablet 2 TAB PO DAILY, #8 TAB Prov: ENRIQUETA HICKS DO 02/01/19 ENRIQUETA HICKS DO Feb 01, 2019 02:26
[2019-02-01] MEDS ORDERED: HYDROcodone/APAP 5/325MG 1 TAB TABLET PO ONE (02:30)
[2019-02-01] MEDS ORDERED: ORPHENADRINE CITRATE 60 MG/2 ML VIAL. IM ONE (02:30)
[2019-02-01] MEDS ORDERED: DEXAMETHASONE 4 MG TABLET PO ONE (02:30)
== END 2019-02-01 02:50 | disposition home or self-care (01) ==
LOC: ER 00:57
DX: M79.604 Pain in right leg (principal); I11.9 Hypertensive heart disease without heart failure; R20.2 Paresthesia of skin; R20.0 Anesthesia of skin; Z96.641 Presence of right artificial hip joint; Z90.710 Acquired absence of both cervix and uterus; Z95.5 Presence of coronary angioplasty implant and graft
CPT/HCPCS: 96372; 99283; J2360; J8540

== ENCOUNTER → 2020-07-11 | Outpatient (CLI) | payer OTHER, MEDICARE ==
[~2020-07-11] MED LIST changes: +AMLO-187 PO; -AMLO10TA8 PO; +HYDR-3164 PO; +ORPH100T PO; +PRED20TA PO
--- NOTE | 2020-07-11 15:38 | RAD ---
BILATERAL SCREENING MAMMOGRAM, 3-D History: Routine screening. Comparison: None. Prior exams are reportedly from more than 10 years ago and are not available. Technique: MLO and CC digital tomosynthesis (3D) images obtained. Radiologist reviewed these images on dedicated workstation. Findings: Breast Tissue Density A : The breasts are almost entirely fatty. There are no dominant masses, suspicious microcalcifications, or architectural distortion. Small asymmetry in the far posterior right upper axillary region is present probably representing a lymph node. It is a solitary finding however and a hilum is not well delineated. IMPRESSION: Exaggerated craniocaudal lateral view recommended. Ultrasound may be needed. BI-RADS Category 0: Incomplete: Need additional imaging evaluation. The images were reviewed with computer-aided detection. Patient information is entered into reminder system with a target due date for the next screening mammogram. Mammography is the most sensitive method for finding small breast cancers, but it does not detect them all and is not a substitute for careful clinical examination. A negative mammogram does not negate a clinically suspicious finding and should not result in delay in biopsying a clinically suspicious abnormality. "Our facility is accredited by the [employer] Mammography Program." Electronically signed by: Angel Alamo MD (07/11/2020 3:35 PM) [id number]
== END ==
LOC: MAMMO 13:47
PROVIDERS: ATTEND Family Medicine
DX: Z12.31 Encounter for screening mammogram for malignant neoplasm of breast (principal)
CPT/HCPCS: 77063; 77067

== ENCOUNTER → 2020-07-19 | Outpatient (CLI) | payer OTHER, MEDICARE ==
--- NOTE | 2020-07-19 08:54 | RAD ---
Examination: MG DIAGNOSTICUNILAT MAMMO History: Reason: ABNORMAL MAMMOGRAM CALLBACK Comparison/Correlation: None Technique: Right unilateral digital diagnostic mammogram views were obtained including spot compressi on imaging of the far posterior right upper axillary region, medial lateral view, and exaggerated scrap charger niocaudal lateral view. Findings: Breast Tissue Density A : The breasts are almost entirely fatty. Asymmetry of the far posterior right upper axillary level seen on the previous exam MLO view is not d elineated on any of the images acquired. It may be obscured due to skin fold at the right posterior u pper extremity level on the spot compression images acquired. IMPRESSION: Asymmetry at the posterior right upper axillary level which probably represents a lymph node is not d elineated on the images acquired. 6 month follow-up diagnostic mammographic examination the right joanie ast and possibly ultrasound to assess stability is recommended. BI-RADS category 3: Probably benign. The images were reviewed with computer aided detection. Patient information is entered into the reminder system with a target due date for the next screening mammogram. Mammography is the most sensitive method for finding small breast cancers, but it does not detect the m all and is not a substitute for careful clinical examination. A negative mammogram does not negate a clinically suspicious finding and should not result in delay in biopsying a clinically suspicious a bnormality. "Our facility is accredited by the [employer] Mammography Program." Electronically signed by: Angel Alamo MD (07/19/2020 8:52 AM) [facility]
== END ==
LOC: MAMMO 07:55
PROVIDERS: ATTEND Family Medicine
DX: R92.8 Other abnormal and inconclusive findings on diagnostic imaging of breast (principal)
CPT/HCPCS: 77065

== ENCOUNTER 2021-03-24 12:18 | Inpatient (IN) | payer MEDICARE, OTHER ==
[~2021-03-24] VITALS: Ht 162.6 cm; Wt 90.6 kg
[~2021-03-24 12:18] MED LIST changes: +POTASSIUM CHLORIDE 20 MEQ TABLET.ER. PO ONE; -VALS1TAB22 PO; +VALS1TAB23 PO
[2021-03-24 13:01] LABS: BASO # 0.1 x10^3/uL (0.0-0.2); BASO % 1 % (0-3); EOS # 0.1 x10^3/uL (0.0-0.7); EOS % 1 % (0-3); HEMOGLOBIN 12.9 g/dL (12.0-15.5); LYMPH # 2.2 x10^3/uL (1.0-4.8); LYMPH % 29 % (24-48); MEAN CORPUSCULAR HEMOGLOBIN 30 pg (25-35); MEAN CORPUSCULAR HGB CONC 33 g/dL (31-37); MEAN CORPUSCULAR VOLUME 89 fL (79-100); MONO # 0.7 x10^3/uL (0.0-1.1); MONO % 9 % (0-9); NEUT # 4.4 x10^3/uL (1.8-7.7); NEUT % 60 % (31-73); PLATELET COUNT 215 x10^3/uL (140-400); RED BLOOD COUNT 4.37 x10^6/uL (3.50-5.40); RED CELL DISTRIBUTION WIDTH 15.7 % (11.5-14.5); WHITE BLOOD COUNT 7.4 x10^3/uL (4.0-11.0)
--- NOTE | 2021-03-24 13:01 | PHYS DOC ---
Past Medical History Past Medical History: Heart Disease, Hypertension Past Surgical History: Hysterectomy, Other Additional Past Surgical Histo: Total R hip, 2 stents R groin, 1 stent L groin, 2 cardiac stents, L breast Smoking Status: Current Every Day Smoker Alcohol Use: None Drug Use: None General Adult EDM: Chief Complaint: SHORTNESS OF BREATH HPI: HPI: 70 yo F PMH CAD (2 stents 2012), HTN and A. fib on Coumadin, presents the ED with complaints of shortness of breath stating "it's the worst, I can barely breathe when I walk," associated fatigue, headache, dizziness, dry cough and chills. Patient lives with her grandson who is an essential worker. Both have been vaccinated for Covid but he recently tested positive for Covid. Review of Systems: Review of Systems: Constitutional: Denies confusion or lethargy or fever Eyes: Denies change in visual acuity. [] HENT: Denies nasal congestion or sore throat. [] Respiratory: Denies hemoptysis or increased work of breathing Cardiovascular: Denies chest pain or edema. [] GI: Denies abdominal pain, nausea, vomiting, bloody stools or diarrhea. [] : Denies dysuria or hematuria Musculoskeletal: Denies back pain or joint pain. [] Integument: Denies rash or diaphoresis Neurologic: Denies headache, focal weakness or sensory changes. [] Endocrine: Denies polyuria or polydipsia. [] Lymphatic: Denies swollen glands. [] Psychiatric: Denies depression or anxiety. [] Heart Score: C/O Chest Pain: No Risk Factors: Risk Factors: DM, Current or recent (<one month) smoker, HTN, HLP, family history of CAD, obesity. Risk Scores: Score 0 - 3: 2.5% MACE over next 6 weeks - Discharge Home Score 4 - 6: 20.3% MACE over next 6 weeks - Admit for Clinical Observation Score 7 - 10: 72.7% MACE over next 6 weeks - Early Invasive Strategies Allergies: Allergies: Allergies Coded Allergies Type Severity Reaction Last Updated Verified No Known Drug Allergies 07/13/18 No Physical Exam: PE: Constitutional: Flu appearing, nontoxic HENT: Normocephalic, atraumatic, Eyes: EOMI, conjunctiva normal, no discharge. Neck: Normal range of motion, supple, no JVD Cardiovascular: S1/2 present, irregular rhythm Lungs & Thorax: Speaking in full sentences, bilateral equal chest rise, no tachypnea or increased work of breathing, not requiring any supplemental oxygen Abdomen: soft, no tenderness, Skin: Warm, dry, no erythema, no rash. [] Back: No tenderness, no CVA tenderness. [] Extremities: No tenderness, no cyanosis, no unilateral lower extremity edema Neurologic: Alert and oriented X 3, normal motor function, normal sensory function, no focal deficits noted. [] Psychologic: Affect normal, judgement normal, mood normal. [] Current Patient Data: Vital Signs: Vital Signs Date Time Temp Pulse Resp B/P (MAP) Pulse Ox O2 Delivery O2 Flow Rate FiO2 03/24/21 12:37 98.2 97 20 200/98 (111) 98 Room Air 98.2 EKG: EKG: A. fib at 109 bpm, no axis deviation, QTC 478, no TWI, no AIMEE/STD Radiology/Procedures: Radiology/Procedures: []IMAGING REPORT Signed PATIENT: BUSTER ODOM ACCOUNT: [id number] : 1950 LOCATION: ER AGE: 70 SEX: F EXAM STATUS: REG ER ORD. PHYSICIAN: JARVIS GIFFORD DO REASON: soa, r/o pe PROCEDURE: CT ANGIOGRAPHY CHEST CTA CHEST History: Short of breath. Technique: CT of the chest was performed with intravenous contrast. PE protocol. Maximum intensity projection coronal and sagittal reconstructions were performed. Exposure: One or more of the following individualized dose reduction techniques were utilized for this examination: 1. Automated exposure control 2. Adjustment of the mA and/or kV according to patient size 3. Use of iterative reconstruction technique. Comparison: None Findings: Chest: No pulmonary embolism. Mildly enlarged pulmonary artery measures 3.6 cm. Degraded evaluation of the aorta due to contrast bolus timing. Moderate atheromatous plaque within the aorta. Mildly enlarged mediastinal lymph nodes as well as hilar lymph nodes. Small right and tiny left pleural effusions with adjacent atelectasis. Diffuse septal thickening with mild groundglass opacities. Mild bronchial wall thickening. 2 mm left upper lobe pulmonary nodule (series 3 image 39). 2 mm left upper lobe pulmonary nodule (image 61). Several 2 to 3 mm right upper and middle lobe pulmonary nodules. Upper abdomen: Reflux of contrast into the IVC and hepatic veins. Atheromatous thickening of the left adrenal gland. Bones: No pathologic osseous lesions. Impression: 1. No pulmonary embolism. 2. Diffuse septal thickening with ground glass opacities, may represent pulmonary edema or less likely infection. 3. Small right and tiny left pleural effusion. 4. Reflux of contrast into the IVC and hepatic veins, may indicate right heart dysfunction. 5. Mildly distended lymphadenopathy, likely reactive. 6. Small bilateral pulmonary nodules. Recommend one-year follow-up if high risk. Electronically signed by: Fletcher Hale DO (03/24/2021 3:40 PM) [id number] DICTATED and SIGNED BY: FLETCHER HALE DO DATE: 03/24/21 [id number] IMAGING REPORT Signed PATIENT: BUSTER ODOM ACCOUNT: [id number] : 1950 LOCATION: ER AGE: 70 SEX: F EXAM STATUS: REG ER ORD. PHYSICIAN: JARVIS GIFFORD DO REASON: soa, pui PROCEDURE: PORTABLE CHEST 1V XR CHEST 1V CLINICAL INDICATIONS: Reason: Shortness of air, patient under investigation for Covid 19 Comparison: July 01, 2018. Findings: Ill-defined bilateral lung infiltrates are seen. No pleural effusion or pneumothorax is seen. Heart size is prominent but stable. The pulmonary vasculature, mediastinum and both bre are unremarkable. IMPRESSION: Ill-defined bilateral lung infiltrates. Electronically signed by: Maria Dolores Mondragon MD (03/24/2021 1:13 PM) [id number] DICTATED and SIGNED BY: MARIA DOLORES MONDRAGON MD DATE: 03/24/21 [id number] Course & Med Decision Making: Course & Med Decision Making Pertinent Labs and Imaging studies reviewed. (See chart for details) COVID-19 CRITERIA: The patient was evaluated during the global COVID-19 pandemic, and that diagnosis was suspected/considered upon their initial presentation. Their evaluation, treatment and testing was consistent with current guidelines for patients who present with complaints or symptoms that may be related to COVID-19. Concern for dyspnea in the setting of recent Covid exposure with atypical infiltrates versus pulmonary edema on chest x-ray. No prior echocardiogram for comparison, BNP 3200 in setting of uncontrolled hypertension, could be symptomatic hypertension. Will admit for further medical management. Patient stable time of admission and agrees with this plan. I have spoken with the patient and/or caregivers. I have explained the patient's condition, diagnosis and treatment plan based on the information available to me at this time. I have answered the patient's and/or caregivers questions and answered any concerns. The patient and/or caregivers have as good an understanding of the patient's diagnosis, condition and treatment plan as can be expected at this point. The patient has been stabilized within the capability of the emergency department. The patient will be transported for further care and management or will be moved to an observation or inpatient service. I have communicated with the staff or medical practitioner taking over this patient's care. Willie Disclaimer: Willie Disclaimer: This electronic medical record was generated, in whole or in part, using a voice recognition dictation system. Departure Departure Impression: Primary Impression: Person under investigation for COVID-19 Additional Impressions: Uncontrolled hypertension Exertional dyspnea Disposition: ADMITTED INPATIENT Admitting Physician: BEBE (Dr. Gaytan) Condition: STABLE Referrals: SANDRA HOLLINGSWORTH MD (PCP) JARVIS GIFFORD DO Mar 24, 2021 13:01
[2021-03-24 13:13] LABS: GFR 66.3; POTASSIUM 3.2 mmol/L (3.5-5.1)
--- NOTE | 2021-03-24 13:15 | RAD ---
XR CHEST 1V CLINICAL INDICATIONS: Reason: Shortness of air, patient under investigation for Covid 19 Comparison: July 01, 2018. Findings: Ill-defined bilateral lung infiltrates are seen. No pleural effusion or pneumothorax is see n. Heart size is prominent but stable. The pulmonary vasculature, mediastinum and both bre are unrem arkable. IMPRESSION: Ill-defined bilateral lung infiltrates. Electronically signed by: Addison Mondragon MD (03/24/2021 1:13 PM) [id number]
[2021-03-24 13:19] LABS: PROTHROMBIN TIME PATIENT 26.4 SEC (11.7-14.0)
[2021-03-24 13:19] LABS: ALBUMIN 3.8 g/dL (3.4-5.0); DIRECT BILIRUBIN 0.3 mg/dL (0.0-0.2); TOTAL BILIRUBIN 1.3 mg/dL (0.2-1.0); TOTAL PROTEIN 7.1 g/dL (6.4-8.2)
[2021-03-24 13:27] LABS: INFLUENZA A PATIENT NEGATIVE (NEGATIVE); INFLUENZA B PATIENT NEGATIVE (NEGATIVE)
[2021-03-24] MEDS ORDERED: IOHEXOL 350 MG/ML 100 ML VIAL. IV ONE (15:00)
[2021-03-24] MEDS ORDERED: CONTRAST GIVEN. MC PRN (15:00)
--- NOTE | 2021-03-24 15:42 | RAD ---
CTA CHEST History: Short of breath. Technique: CT of the chest was performed with intravenous contrast. PE protocol. Maximum intensity pr ojection coronal and sagittal reconstructions were performed. Exposure: One or more of the following individualized dose reduction techniques were utilized for thi s examination: 1. Automated exposure control 2. Adjustment of the mA and/or kV according to patient size 3. Use of iterative reconstruction technique. Comparison: None Findings: Chest: No pulmonary embolism. Mildly enlarged pulmonary artery measures 3.6 cm. Degraded evaluation o f the aorta due to contrast bolus timing. Moderate atheromatous plaque within the aorta. Mildly enlar ged mediastinal lymph nodes as well as hilar lymph nodes. Small right and tiny left pleural effusions with adjacent atelectasis. Diffuse septal thickening with mild groundglass opacities. Mild bronchial wall thickening. 2 mm left upper lobe pulmonary nodule (series 3 image 39). 2 mm left upper lobe pulmonary nodule (lavelle ge 61). Several 2 to 3 mm right upper and middle lobe pulmonary nodules. Upper abdomen: Reflux of contrast into the IVC and hepatic veins. Atheromatous thickening of the left adrenal gland. Bones: No pathologic osseous lesions. Impression: 1. No pulmonary embolism. 2. Diffuse septal thickening with ground glass opacities, may represent pulmonary edema or less like ly infection. 3. Small right and tiny left pleural effusion. 4. Reflux of contrast into the IVC and hepatic veins, may indicate right heart dysfunction. 5. Mildly distended lymphadenopathy, likely reactive. 6. Small bilateral pulmonary nodules. Recommend one-year follow-up if high risk. Electronically signed by: Fletcher Hale DO (03/24/2021 3:40 PM) [id number]
[2021-03-24] MEDS ORDERED: cefTRIAXone IV Push 1 GM VIAL. IVP ONE (16:00)
[2021-03-24] MEDS ORDERED: NITROGLYCERIN OINT 1 GM PACKET. TP ONE (16:00)
[2021-03-24] MEDS ORDERED: AZITHRMYCN 500MG IVPB FOR OMNI 250 ML IV ONE (16:00)
[2021-03-24] MEDS ORDERED: KETOROLAC 15 MG/ML VIAL. IVP ONE (17:30)
--- NOTE | 2021-03-24 18:50 | PDOC1 ---
History and Physical Date of Admission Date of Admission DATE: 03/24/21 TIME: 18:38 Identification/Chief Complaint Chief Complaint Shortness of breath Source Source: Chart review, Patient History of Present Illness History of Present Illness Patient 70-year-old female with past medical history hypertension, CAD with stent, PVD, atrial fibrillation, who presents to the ED with complaints of worsening shortness of breath over the past 2 days. States her symptoms are worse with exertion, with associated headache, lightheadedness, and orthopnea. States she has not taken her home blood pressure medications over the past few days because she has not felt well. She went was seen in urgent clinic for her symptoms, but subsequently referred to the ER. On arrival in the ER her blood pressure was significant elevated at 200/98 mmHg. Labs on admission showed sodium 135, potassium 3.2, INR 2.5, troponin <0.017, BNP 3282. Chest x-ray showed ill-defined bilateral lung infiltrates. She was treated with Rocephin and azithromycin. Will admit patient for further medical management. Past Medical History Past Medical History CAD with stent, HTN, PVD, atrial fibrillation Past Surgical History Past Surgical History Hysterectomy, total knee replacement, right groin stent, cardiac stent Family History Family History HTN Social History Smoke: <1 pack per day ALCOHOL: none Drugs: None Current Problem List Problem List Problems Medical Problems: (1) Dyspnea Status: Acute (2) Exertional dyspnea Status: Acute (3) Person under investigation for COVID-19 Status: Acute (4) Uncontrolled hypertension Status: Acute Current Medications Current Medications Current Medications Iohexol (Omnipaque 350 Mg/ml) 100 ml 1X ONCE IV Last administered on 03/24/21at 15:22; Start 03/24/21 at 15:00; Stop 03/24/21 at 15:01; Status DC Info (CONTRAST GIVEN -- Rx MONITORING) 1 each PRN DAILY PRN MC SEE COMMENTS; Start 03/24/21 at 15:00; Stop 03/26/21 at 14:59 Ceftriaxone Sodium (Rocephin) 1 gm 1X ONCE IVP Last administered on 03/24/21at 16:15; Start 03/24/21 at 16:00; Stop 03/24/21 at 16:01; Status DC Azithromycin 250 ml @ 250 mls/hr 1X ONCE IV Last administered on 03/24/21at 16:15; Start 03/24/21 at 16:00; Stop 03/24/21 at 16:59; Status DC Nitroglycerin (Nitro-Bid Oint) 1 inch 1X ONCE TP Last administered on 03/24/21at 16:13; Start 03/24/21 at 16:00; Stop 03/24/21 at 16:01; Status DC Ketorolac Tromethamine (Toradol 15mg Vial) 15 mg 1X ONCE IVP Last administered on 03/24/21at 18:11; Start 03/24/21 at 17:30; Stop 03/24/21 at 17:31; Status DC Active Scripts Active [place] 5-325 Tablet (Acetaminophen/Hydrocodone Bitart) 1 Each Tablet 0.5-1 Tab PO PRN Q6HRS PRN Orphenadrine Citrate 100 Mg Tablet.er 1 Tab PO BID Prednisone 20 Mg Tablet 2 Tab PO DAILY Reported Coumadin (Warfarin Sodium) 3 Mg Tablet 1 Tab PO DAILY Hydralazine Hcl 25 Mg Tablet 1 Tab PO BID Amlodipine Besylate 10 Mg Tablet 10 Mg PO DAILY Tramadol Hcl 50 Mg Tablet 50 Mg PO DAILY PRN Diovan Hct 320-25 Mg Tablet (Valsartan/Hydrochlorothiazide) 1 Each Tablet 1 Tab PO DAILY Atorvastatin Calcium 20 Mg Tablet 1 Tab PO DAILY Metoprolol Tartrate 25 Mg Tablet 1 Tab PO BID Allergies Allergies: Coded Allergies: No Known Drug Allergies (Unverified , 07/13/18) ROS Review of System GENERAL: No history of weight change, weakness or fevers. SKIN: No bruising, hair changes or rashes. EYES: No blurred, double or loss of vision. NOSE AND THROAT: No history of nosebleeds, hoarseness or sore throat. HEART: Denies chest pain, denies palpitations. LUNGS: Shortness of breath and cough. Denies hemoptysis or wheezing. GASTROINTESTINAL: Denies nausea, vomiting, abdominal pain. GENITOURINARY: Denies dysuria, frequency, urgency, hematuria. NEUROLOGIC: Denies history of numbness, tingling, tremor or weakness. PSYCHIATRIC: Denies anxiety, denies depression. ENDOCRINE: No history of heat or cold intolerance, polyuria or polydipsia. EXTREMITIES: Denies muscle weakness, joint pain, pain on walking or stiffness. Physical Exam Physical Exam General: Alert, Oriented X3, Cooperative, mild distress HEENT: PERRLA, EOMI Lungs: Bibasilar Rales, Normal air movement Heart: RRR, no murmurs Cardiovascular: S1, S2 Abdomen: Normal bowel sounds, Soft, No tenderness Extremities: No clubbing, No cyanosis Skin: No rashes, No significant lesion Neuro: Normal speech, Normal tone, Sensation intact Psych/Mental Status: Mental status NL, Mood NL Vitals Vitals Vital Signs Date Time Temp Pulse Resp B/P (MAP) Pulse Ox O2 Delivery O2 Flow Rate FiO2 03/24/21 17:00 78 20 191/83 (119) 94 Room Air 03/24/21 12:37 98.2 98.2 Labs Labs Laboratory Tests Test 03/24/21 12:43 03/24/21 12:48 White Blood Count 7.4 x10^3/uL (4.0-11.0) Red Blood Count 4.37 x10^6/uL (3.50-5.40) Hemoglobin 12.9 g/dL (12.0-15.5) Hematocrit 39.0 % (36.0-47.0) Mean Corpuscular Volume 89 fL (79-100) Mean Corpuscular Hemoglobin 30 pg (25-35) Mean Corpuscular Hemoglobin Concent 33 g/dL (31-37) Red Cell Distribution Width 15.7 % (11.5-14.5) Platelet Count 215 x10^3/uL (140-400) Neutrophils (%) (Auto) 60 % (31-73) Lymphocytes (%) (Auto) 29 % (24-48) Monocytes (%) (Auto) 9 % (0-9) Eosinophils (%) (Auto) 1 % (0-3) Basophils (%) (Auto) 1 % (0-3) Neutrophils # (Auto) 4.4 x10^3/uL (1.8-7.7) Lymphocytes # (Auto) 2.2 x10^3/uL (1.0-4.8) Monocytes # (Auto) 0.7 x10^3/uL (0.0-1.1) Eosinophils # (Auto) 0.1 x10^3/uL (0.0-0.7) Basophils # (Auto) 0.1 x10^3/uL (0.0-0.2) Sodium Level 135 mmol/L (136-145) Potassium Level 3.2 mmol/L (3.5-5.1) Chloride Level 99 mmol/L (98-107) Carbon Dioxide Level 25 mmol/L (21-32) Anion Gap 11 (6-14) Blood Urea Nitrogen 19 mg/dL (7-20) Creatinine 1.0 mg/dL (0.6-1.0) Estimated GFR (Cockcroft-Gault) 66.3 Glucose Level 107 mg/dL (70-99) Calcium Level 9.0 mg/dL (8.5-10.1) Total Bilirubin 1.3 mg/dL (0.2-1.0) Direct Bilirubin 0.3 mg/dL (0.0-0.2) Aspartate Amino Transf (AST/SGOT) 49 U/L (15-37) Alanine Aminotransferase (ALT/SGPT) 51 U/L (14-59) Alkaline Phosphatase 118 U/L (46-116) Creatine Kinase 246 U/L (26-192) Troponin I Quantitative < 0.017 ng/mL (0.000-0.055) UR-Loy-E-Type Natriuretic Peptide 3282 pg/mL (0-124) Total Protein 7.1 g/dL (6.4-8.2) Albumin 3.8 g/dL (3.4-5.0) Influenza Type A Antigen Negative (NEGATIVE) Influenza Type B Antigen Negative (NEGATIVE) SARS-CoV-2 Antigen (Rapid) Negative (NEGATIVE) Prothrombin Time 26.4 SEC (11.7-14.0) Prothromb Time International Ratio 2.5 (0.8-1.1) Activated Partial Thromboplast Time 42 SEC (24-38) Laboratory Tests Test 03/24/21 12:43 03/24/21 12:48 White Blood Count 7.4 x10^3/uL (4.0-11.0) Red Blood Count 4.37 x10^6/uL (3.50-5.40) Hemoglobin 12.9 g/dL (12.0-15.5) Hematocrit 39.0 % (36.0-47.0) Mean Corpuscular Volume 89 fL (79-100) Mean Corpuscular Hemoglobin 30 pg (25-35) Mean Corpuscular Hemoglobin Concent 33 g/dL (31-37) Red Cell Distribution Width 15.7 % (11.5-14.5) Platelet Count 215 x10^3/uL (140-400) Neutrophils (%) (Auto) 60 % (31-73) Lymphocytes (%) (Auto) 29 % (24-48) Monocytes (%) (Auto) 9 % (0-9) Eosinophils (%) (Auto) 1 % (0-3) Basophils (%) (Auto) 1 % (0-3) Neutrophils # (Auto) 4.4 x10^3/uL (1.8-7.7) Lymphocytes # (Auto) 2.2 x10^3/uL (1.0-4.8) Monocytes # (Auto) 0.7 x10^3/uL (0.0-1.1) Eosinophils # (Auto) 0.1 x10^3/uL (0.0-0.7) Basophils # (Auto) 0.1 x10^3/uL (0.0-0.2) Sodium Level 135 mmol/L (136-145) Potassium Level 3.2 mmol/L (3.5-5.1) Chloride Level 99 mmol/L (98-107) Carbon Dioxide Level 25 mmol/L (21-32) Anion Gap 11 (6-14) Blood Urea Nitrogen 19 mg/dL (7-20) Creatinine 1.0 mg/dL (0.6-1.0) Estimated GFR (Cockcroft-Gault) 66.3 Glucose Level 107 mg/dL (70-99) Calcium Level 9.0 mg/dL (8.5-10.1) Total Bilirubin 1.3 mg/dL (0.2-1.0) Direct Bilirubin 0.3 mg/dL (0.0-0.2) Aspartate Amino Transf (AST/SGOT) 49 U/L (15-37) Alanine Aminotransferase (ALT/SGPT) 51 U/L (14-59) Alkaline Phosphatase 118 U/L (46-116) Creatine Kinase 246 U/L (26-192) Troponin I Quantitative < 0.017 ng/mL (0.000-0.055) IE-Nbm-O-Type Natriuretic Peptide 3282 pg/mL (0-124) Total Protein 7.1 g/dL (6.4-8.2) Albumin 3.8 g/dL (3.4-5.0) Influenza Type A Antigen Negative (NEGATIVE) Influenza Type B Antigen Negative (NEGATIVE) SARS-CoV-2 Antigen (Rapid) Negative (NEGATIVE) Prothrombin Time 26.4 SEC (11.7-14.0) Prothromb Time International Ratio 2.5 (0.8-1.1) Activated Partial Thromboplast Time 42 SEC (24-38) Images Images PATIENT: BUSTER ODOM ACCOUNT: [id number] : 1950 LOCATION: ER AGE: 70 SEX: F EXAM STATUS: REG ER ORD. PHYSICIAN: JARVIS GIFFORD DO REASON: soa, pui PROCEDURE: PORTABLE CHEST 1V XR CHEST 1V CLINICAL INDICATIONS: Reason: Shortness of air, patient under investigation for Covid 19 Comparison: July 01, 2018. Findings: Ill-defined bilateral lung infiltrates are seen. No pleural effusion or pneumothorax is seen. Heart size is prominent but stable. The pulmonary vasculature, mediastinum and both bre are unremarkable. IMPRESSION: Ill-defined bilateral lung infiltrates. VTE Prophylaxis Ordered VTE Prophylaxis Devices: No VTE Pharmacological Prophylaxi: Yes Assessment/Plan Assessment/Plan Pulmonary edema Hypertensive urgency Possible community-acquired pneumonia due to gram-positive or gram-negative organism Elevated BNP A. fib Plan: Will continue treatment pneumonia with Rocephin and azithromycin Will provide Lasix x1 Obtain echocardiogram to evaluate heart failure Will adjust blood pressure medications; I believe presenting symptoms are due to the fact that she had not been taking her blood pressure medications recently She will likely be able to discharge home tomorrow to complete her antibiotic course outpatient with possible adjustment in blood pressure medications Resume home medications FEN - Cardiac diet PPX - warfarin FULL CODE Dispo - inpatient for above Patient names her daughter (Abbi Covarrubias) as surrogate decision-maker Justifications for Admission Other Justification KILEY MCCORD MD Mar 24, 2021 18:50
[2021-03-24] MEDS ORDERED: traMADol 50 MG TABLET PO PRN (19:00)
[2021-03-24] MEDS ORDERED: POTASSIUM CHLORIDE 20 MEQ TABLET.ER. PO ONE ×2 (19:00→23:15)
[2021-03-24] MEDS ORDERED: FUROSEMIDE 20 MG/2 ML VIAL. IVP ONE (19:00)
[2021-03-24] MEDS ORDERED: WARFARIN 3 MG TABLET. PO ONE (20:00)
[2021-03-24] MEDS: ATORVASTATIN CALCIUM 20 MG TABLET PO SCH (21:56)
[2021-03-24] MEDS: METOPROLOL TART IMMED RELEASE 25 MG TABLET. PO SCH (21:57)
[2021-03-24 23:06] VITALS: BP 186/85
--- NOTE | 2021-03-24 23:11 | NUR ---
Jazlyn arrived from ED around 2229 via bed w/ dyspnea, HTN and PUI. She is A/O x 4 and will make needs known.
[2021-03-24] MEDS: hydrALAZINE 25 MG TABLET PO SCH (23:25)
[2021-03-25] MEDS ORDERED: MAGNESIUM HYDROXIDE 2,400 MG/30 ML ORAL.SUSP. PO PRN (00:15)
[2021-03-25] MEDS ORDERED: CALCIUM CARBONATE 500 MG TAB.CHEW PO PRN (00:15)
[2021-03-25] MEDS ORDERED: ONDANSETRON PF 4 MG/2 ML VIAL. IVP PRN (00:15)
[2021-03-25] MEDS ORDERED: MAG HYDROX/ALUMINUM HYD/SIMETH 30 ML ORAL.SUSP PO PRN (00:15)
[2021-03-25] MEDS ORDERED: ACETAMINOPHEN 325 MG TABLET. PO PRN (00:15)
[2021-03-25] MEDS: ZOLPIDEM 5 MG TABLET. PO PRN ×2 (00:57→21:58)
[2021-03-25 03:06] VITALS: BP 172/78
[2021-03-25 07:00] VITALS: BP 195/92
[2021-03-25 07:17] LABS: BASO # 0.1 x10^3/uL (0.0-0.2); BASO % 1 % (0-3); EOS # 0.1 x10^3/uL (0.0-0.7); EOS % 2 % (0-3); HEMATOCRIT 34.8 % (36.0-47.0); HEMOGLOBIN 11.8 g/dL (12.0-15.5); LYMPH # 1.9 x10^3/uL (1.0-4.8); LYMPH % 34 % (24-48); MEAN CORPUSCULAR HEMOGLOBIN 30 pg (25-35); MEAN CORPUSCULAR HGB CONC 34 g/dL (31-37); MEAN CORPUSCULAR VOLUME 89 fL (79-100); MONO # 0.5 x10^3/uL (0.0-1.1); MONO % 9 % (0-9); NEUT # 3.1 x10^3/uL (1.8-7.7); NEUT % 55 % (31-73); PLATELET COUNT 180 x10^3/uL (140-400); RED BLOOD COUNT 3.91 x10^6/uL (3.50-5.40); RED CELL DISTRIBUTION WIDTH 15.9 % (11.5-14.5); WHITE BLOOD COUNT 5.8 x10^3/uL (4.0-11.0)
[2021-03-25 07:41] LABS: CALCIUM 8.7 mg/dL (8.5-10.1); CREATININE 1.3 mg/dL (0.6-1.0)
--- NOTE | 2021-03-25 08:04 | PDOC ---
[facility] PROGRESS NOTE Date of Service DOS: DATE: 03/25/21 TIME: 08:02 Chief Complaint Chief Complaint Pulmonary edema Hypertensive urgency Possible community-acquired pneumonia due to gram-positive or gram-negative organism Elevated BNP A. fib Plan: Will continue treatment pneumonia with Rocephin and azithromycin Will provide Lasix x1 Obtain echocardiogram to evaluate heart failure Will adjust blood pressure medications; I believe presenting symptoms are due to the fact that she had not been taking her blood pressure medications recently She will likely be able to discharge home tomorrow to complete her antibiotic course outpatient with possible adjustment in blood pressure medications Resume home medications FEN - Cardiac diet PPX - warfarin FULL CODE Dispo - inpatient for above Patient names her daughter (Abbi Covarrubias) as surrogate decision-maker History of Present Illness History of Present Illness Ms Acharya 70-year-old female with past medical history hypertension, CAD with stent, PVD, atrial fibrillation, who presents to the ED with complaints of worsening shortness of breath over the past 2 days. States her symptoms are worse with exertion, with associated headache, lightheadedness, and orthopnea. States she has not taken her home blood pressure medications over the past few days because she has not felt well. She went was seen in urgent clinic for her symptoms, but subsequently referred to the ER. On arrival in the ER her blood pressure was significant elevated at 200/98 mmHg. Labs on admission showed so dium 135, potassium 3.2, INR 2.5, troponin <0.017, BNP 3282. Chest x-ray showed ill-defined bilateral lung infiltrates. She was treated with Rocephin and azithromycin. Will admit patient for further medical management. Afebrile. CRP elevated. Continue on Rocephin and doxycycline. She symptomatically improved. Creatinine increased to 1.3 and potassium to 3. Would hold HCTZ, cont furosemide. Cont empiric antibiotics for pneumonia Vitals/I&O Vitals/I&O: Vital Signs Date Time Temp Pulse Resp B/P (MAP) Pulse Ox O2 Delivery O2 Flow Rate FiO2 03/25/21 07:00 97.8 85 18 195/92 (126) 97 Room Air 97.8 I & O 03/24/21 03/24/21 03/25/21 15:00 23:00 07:00 Intake Total 250 ml Output Total 200 ml Balance 250 ml -200 ml Physical Exam General: Alert, Cooperative Heart: Other (Irregular) Abdomen: Normal bowel sounds, Soft Extremities: No clubbing, No cyanosis Skin: No rashes, No breakdown Labs Labs: Laboratory Tests Test 03/24/21 12:43 03/24/21 12:48 03/25/21 05:35 White Blood Count 7.4 x10^3/uL (4.0-11.0) 5.8 x10^3/uL (4.0-11.0) Red Blood Count 4.37 x10^6/uL (3.50-5.40) 3.91 x10^6/uL (3.50-5.40) Hemoglobin 12.9 g/dL (12.0-15.5) 11.8 g/dL (12.0-15.5) Hematocrit 39.0 % (36.0-47.0) 34.8 % (36.0-47.0) Mean Corpuscular Volume 89 fL (79-100) 89 fL (79-100) Mean Corpuscular Hemoglobin 30 pg (25-35) 30 pg (25-35) Mean Corpuscular Hemoglobin Concent 33 g/dL (31-37) 34 g/dL (31-37) Red Cell Distribution Width 15.7 % (11.5-14.5) 15.9 % (11.5-14.5) Platelet Count 215 x10^3/uL (140-400) 180 x10^3/uL (140-400) Neutrophils (%) (Auto) 60 % (31-73) 55 % (31-73) Lymphocytes (%) (Auto) 29 % (24-48) 34 % (24-48) Monocytes (%) (Auto) 9 % (0-9) 9 % (0-9) Eosinophils (%) (Auto) 1 % (0-3) 2 % (0-3) Basophils (%) (Auto) 1 % (0-3) 1 % (0-3) Neutrophils # (Auto) 4.4 x10^3/uL (1.8-7.7) 3.1 x10^3/uL (1.8-7.7) Lymphocytes # (Auto) 2.2 x10^3/uL (1.0-4.8) 1.9 x10^3/uL (1.0-4.8) Monocytes # (Auto) 0.7 x10^3/uL (0.0-1.1) 0.5 x10^3/uL (0.0-1.1) Eosinophils # (Auto) 0.1 x10^3/uL (0.0-0.7) 0.1 x10^3/uL (0.0-0.7) Basophils # (Auto) 0.1 x10^3/uL (0.0-0.2) 0.1 x10^3/uL (0.0-0.2) Sodium Level 135 mmol/L (136-145) 141 mmol/L (136-145) Potassium Level 3.2 mmol/L (3.5-5.1) 3.0 mmol/L (3.5-5.1) Chloride Level 99 mmol/L (98-107) 104 mmol/L (98-107) Carbon Dioxide Level 25 mmol/L (21-32) 28 mmol/L (21-32) Anion Gap 11 (6-14) 9 (6-14) Blood Urea Nitrogen 19 mg/dL (7-20) 21 mg/dL (7-20) Creatinine 1.0 mg/dL (0.6-1.0) 1.3 mg/dL (0.6-1.0) Estimated GFR (Cockcroft-Gault) 66.3 49.0 Glucose Level 107 mg/dL (70-99) 94 mg/dL (70-99) Calcium Level 9.0 mg/dL (8.5-10.1) 8.7 mg/dL (8.5-10.1) Total Bilirubin 1.3 mg/dL (0.2-1.0) Direct Bilirubin 0.3 mg/dL (0.0-0.2) Aspartate Amino Transf (AST/SGOT) 49 U/L (15-37) Alanine Aminotransferase (ALT/SGPT) 51 U/L (14-59) Alkaline Phosphatase 118 U/L (46-116) Creatine Kinase 246 U/L (26-192) Troponin I Quantitative < 0.017 ng/mL (0.000-0.055) CN-Ire-F-Type Natriuretic Peptide 3282 pg/mL (0-124) Total Protein 7.1 g/dL (6.4-8.2) Albumin 3.8 g/dL (3.4-5.0) Influenza Type A Antigen Negative (NEGATIVE) Influenza Type B Antigen Negative (NEGATIVE) SARS-CoV-2 RNA (ELIZABETH) Positive (Negative) SARS-CoV-2 Antigen (Rapid) Negative (NEGATIVE) Prothrombin Time 26.4 SEC (11.7-14.0) Prothromb Time International Ratio 2.5 (0.8-1.1) Activated Partial Thromboplast Time 42 SEC (24-38) Assessment and Plan Assessmemt and Plan Problems Medical Problems: (1) Dyspnea Status: Acute (2) Exertional dyspnea Status: Acute (3) Person under investigation for COVID-19 Status: Acute (4) Uncontrolled hypertension Status: Acute Comment Review of Relevant I have reviewed the following items jamari (where applicable) has been applied. Medications: Current Medications Medications (Trade) Dose Ordered Sig/Rosa Route PRN Reason Start Time Stop Time Status Last Admin Dose Admin Iohexol (Omnipaque 350 Mg/ml) 100 ml 1X ONCE IV 03/24/21 15:00 03/24/21 15:01 DC 03/24/21 15:22 Ceftriaxone Sodium (Rocephin) 1 gm 1X ONCE IVP 03/24/21 16:00 03/24/21 16:01 DC 03/24/21 16:15 Azithromycin 250 ml @ 250 mls/hr 1X ONCE IV 03/24/21 16:00 03/24/21 16:59 DC 03/24/21 16:15 Nitroglycerin (Nitro-Bid Oint) 1 inch 1X ONCE TP 03/24/21 16:00 03/24/21 16:01 DC 03/24/21 16:13 Ketorolac Tromethamine (Toradol 15mg Vial) 15 mg 1X ONCE IVP 03/24/21 17:30 03/24/21 17:31 DC 03/24/21 18:11 Furosemide (Lasix) 20 mg 1X ONCE IVP 03/24/21 19:00 03/24/21 19:01 DC 03/24/21 21:56 Potassium Chloride (Klor-Con) 20 meq 1X ONCE PO 03/24/21 09:00 03/24/21 19:02 DC 03/24/21 21:56 Atorvastatin Calcium (Lipitor) 20 mg QHS PO 03/24/21 21:00 03/24/21 21:56 Hydralazine HCl (Apresoline) 25 mg BID PO 03/24/21 21:00 03/24/21 23:25 Metoprolol Tartrate (Lopressor) 25 mg BID PO 03/24/21 21:00 03/24/21 21:57 Warfarin Sodium (Coumadin) 3 mg 1X WARF ONCE PO 03/24/21 20:00 03/24/21 20:01 DC 03/24/21 22:07 Potassium Chloride (Klor-Con) 20 meq 1X ONCE PO 03/24/21 23:15 03/24/21 23:16 DC 03/24/21 23:25 Zolpidem Tartrate (Ambien) 5 mg PRN QHS PRN PO INSOMNIA, MAY REPEAT IN 1HR 03/25/21 00:15 03/25/21 00:57 Justifications for Admission Other Justification SARAI ASKEW MD Mar 25, 2021 08:04
[2021-03-25 08:11] LABS: PROTHROMBIN TIME PATIENT 26.8 SEC (11.7-14.0)
[2021-03-25 08:45] LABS: C-REACTIVE PROTEIN 16.9 mg/L (0-3.3)
[2021-03-25] MEDS ORDERED: hydroCHLOROthiazide 25 MG TABLET PO SCH (09:00)
[2021-03-25] MEDS: METOPROLOL TART IMMED RELEASE 25 MG TABLET. PO SCH ×2 (09:18→21:54)
[2021-03-25] MEDS: AZITHROMYCIN 250 MG TABLET. PO SCH (09:18)
[2021-03-25] MEDS: FUROSEMIDE 20 MG TABLET PO SCH (09:18)
[2021-03-25] MEDS: hydrALAZINE 25 MG TABLET PO SCH ×2 (09:18→21:53)
[2021-03-25] MEDS: LOSARTAN POTASSIUM 50 MG TABLET. PO SCH (09:19)
[2021-03-25] MEDS: cefTRIAXone IV Push 1 GM VIAL. IVP SCH (09:19)
--- NOTE | 2021-03-25 10:11 | PDOC2 ---
CARDIOLOGY CONSULT NOTE DATE OF SERVICE: DATE: 03/25/21 TIME: 09:49 HPI: Jazlyn Acharya is a 70 year-old female presenting with shortness of breath to the ED on 03/24/21. Hx is significant for hypertension, CAD, PVD, Afib. Patient has had a cardiac stent and a stent in her right groin. Patient has been experiencing increased shortness of breath for the last two days and has been worsening with exertion. Additionally, she reports having severe headaches, lightheadedness, orthopnea. Patient states that she has not been taking her home blood pressure medications because she has not been feeling well. In the ER, upon arrival, patient's blood pressure was 200/98, Na (135), BNP (3282), troponin (<0.017). CXR revealed bilateral infiltrated. CTA revealed probably pulmonary edema and no evidence of pulmonary embolus. Additionally, there was reflux of contrast into the IVC + hepatic veins suggesting possible right heart dysfunction. EKG on arrival revealed AFIB at 109bpm, normal axis deviation, no AIMEE/STD, QTc 478, no TWI. PMHX: CAD+Stent, HTN, PVD+stent to R groin, AFIB FAMHX: Hypertension CURRENT MEDS: Current Medications Medications (Trade) Dose Ordered Sig/Rosa Route PRN Reason Start Time Stop Time Status Last Admin Dose Admin Iohexol (Omnipaque 350 Mg/ml) 100 ml 1X ONCE IV 03/24/21 15:00 03/24/21 15:01 DC 03/24/21 15:22 Ceftriaxone Sodium (Rocephin) 1 gm 1X ONCE IVP 03/24/21 16:00 03/24/21 16:01 DC 03/24/21 16:15 Azithromycin 250 ml @ 250 mls/hr 1X ONCE IV 03/24/21 16:00 03/24/21 16:59 DC 03/24/21 16:15 Nitroglycerin (Nitro-Bid Oint) 1 inch 1X ONCE TP 03/24/21 16:00 03/24/21 16:01 DC 03/24/21 16:13 Ketorolac Tromethamine (Toradol 15mg Vial) 15 mg 1X ONCE IVP 03/24/21 17:30 03/24/21 17:31 DC 03/24/21 18:11 Ceftriaxone Sodium (Rocephin) 1 gm DAILY IVP 03/25/21 09:00 03/25/21 09:19 Azithromycin (Zithromax) 250 mg DAILY PO 03/25/21 09:00 03/28/21 09:01 03/25/21 09:18 Furosemide (Lasix) 20 mg 1X ONCE IVP 03/24/21 19:00 03/24/21 19:01 DC 03/24/21 21:56 Atorvastatin Calcium (Lipitor) 20 mg QHS PO 03/24/21 21:00 03/24/21 21:56 Hydralazine HCl (Apresoline) 25 mg BID PO 03/24/21 21:00 03/25/21 09:18 Metoprolol Tartrate (Lopressor) 25 mg BID PO 03/24/21 21:00 03/25/21 09:18 Losartan Potassium (Cozaar) 100 mg DAILY PO 03/25/21 09:00 03/25/21 09:19 Hydrochlorothiazide (Hydrodiuril) 25 mg DAILY PO 03/25/21 09:00 03/25/21 09:17 Warfarin Sodium (Coumadin) 3 mg 1X WARF ONCE PO 03/24/21 20:00 03/24/21 20:01 DC 03/24/21 22:07 Potassium Chloride (Klor-Con) 20 meq 1X ONCE PO 03/24/21 23:15 03/24/21 23:16 DC 03/24/21 23:25 Furosemide (Lasix) 20 mg DAILY PO 03/25/21 09:00 03/25/21 09:18 Zolpidem Tartrate (Ambien) 5 mg PRN QHS PRN PO INSOMNIA, MAY REPEAT IN 1HR 03/25/21 00:15 03/25/21 00:57 ALLERGIES: Allergies Coded Allergies Type Severity Reaction Last Updated Verified No Known Drug Allergies 07/13/18 No ROS: Unable to obtain at this time PHYSICAL EXAM: Vital Signs/I&O: Vital Signs Date Time Temp Pulse Resp B/P (MAP) Pulse Ox O2 Delivery O2 Flow Rate FiO2 03/25/21 09:19 85 195/92 03/25/21 07:00 97.8 18 97 Room Air 97.8 I & O 03/24/21 03/24/21 03/25/21 15:00 23:00 07:00 Intake Total 250 ml Output Total 200 ml Balance 250 ml -200 ml Physical Exam: Deferred due to covid DIAGNOSTIC TESTING: EKG ordered upon arrival. Afib with 109bpm, normal axis deviation, no AIMEE/STD, no TWI, QTc 478 CTA revealed pulmonary edema, No PE, reflux contrast into IVC + hepatic veins She has previous bilateral iliac stents. She has known left distal external iliac artery stent. She has right SFA stent and she is previous balloon angioplasty of the left SFA. ASSESSMENT: 1. Hypertensive urgency secondary to probable medication noncompliance, systemic inflammation (secondary to COVID pneumonia), 2. COVID pneumonia 3. Atrial fibrillation 4. Peripheral Artery Disease 5. Lung infiltrates secondary to probable COVID pneumonia, possible CHF, possible pulmonary edema 6. Anemia 7. Acute Kidney Injury secondary to possible HTN or cardiorenal syndrome PLAN: 1. Treatment of breakthrough coronavirus infection per primary service 2. Reinitiation of medical therapy for control of her blood pressure as she has not been taking it for several days 3. We will plan for obtaining an outpatient echocardiogram 4. Continue medical therapy including warfarin, beta-colton and ARB. Supportive care for now. We will follow along closely. WEI MABRY MD Mar 25, 2021 10:11
[2021-03-25 11:02] VITALS: BP 184/84
--- NOTE | 2021-03-25 13:56 | NUR ---
Pharmacy Warfarin Dosing Note S:Pharmacy consulted to assist with anticoagulation therapy started with target INR: 2 -3 O:BUSTER ODOM is a 70 year old F with Atrial Fibrillation LABS: Last INR: 2.5 Last HGB: 11.8 Last HCT: 34.8 Last PLT: 180 Last dose of 3 mg given on 03/24/21 at 2207 Previous Regimen: 3MG DAILY Vitamin K given: Drug Interaction Changes: Ongoing Drug Interactions: A:INR of 2.5 is within desired range. Target range for this patient is: 2 -3 P: Warfarin dose: 3 mg Today at 1600 Bridge Therapy: None Next INR due 03/26/21. Pharmacy anticoagulation service will continue to follow. VIANEY ACOSTA [facility], 03/25/21 [id number]
[2021-03-25 15:01] VITALS: BP 162/74
[2021-03-25] MEDS ORDERED: POTASSIUM CHLORIDE 20 MEQ TABLET.ER. PO ONE (16:00)
[2021-03-25] MEDS: DOXYCYCLINE HYCLATE 100 MG TABLET PO SCH (16:19)
[2021-03-25] MEDS: WARFARIN 3 MG TABLET. PO SCH (16:19)
[2021-03-25] MEDS ORDERED: MAGNESIUM SULFATE 1GM 100 ML IV ONE (16:30)
--- NOTE | 2021-03-25 18:55 | EKG ---
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
[2021-03-25 19:00] VITALS: BP 171/79
[2021-03-25] MEDS: LACTOBACILLUS RHAMNOSUS GG 1 CAPSULE. PO SCH (21:53)
[2021-03-25] MEDS: ATORVASTATIN CALCIUM 20 MG TABLET PO SCH (21:53)
[2021-03-25 23:01] VITALS: BP 179/79
[2021-03-26] VITALS (7 sets, daily range): BP systolic 146–202; BP diastolic 79–93
[2021-03-26 06:26] LABS: CALCIUM 8.9 mg/dL (8.5-10.1); CREATININE 1.1 mg/dL (0.6-1.0); GFR 59.4; POTASSIUM 3.5 mmol/L (3.5-5.1)
[2021-03-26 06:42] LABS: PROTHROMBIN TIME PATIENT 22.9 SEC (11.7-14.0)
[2021-03-26 06:52] LABS: BASO % 1 % (0-3); EOS # 0.1 x10^3/uL (0.0-0.7); EOS % 1 % (0-3); HEMATOCRIT 38.7 % (36.0-47.0); HEMOGLOBIN 12.4 g/dL (12.0-15.5); LYMPH % 36 % (24-48); MEAN CORPUSCULAR HEMOGLOBIN 29 pg (25-35); MEAN CORPUSCULAR HGB CONC 32 g/dL (31-37); MEAN CORPUSCULAR VOLUME 92 fL (79-100); MONO # 0.4 x10^3/uL (0.0-1.1); MONO % 8 % (0-9); NEUT % 55 % (31-73); PLATELET COUNT 189 x10^3/uL (140-400); RED BLOOD COUNT 4.22 x10^6/uL (3.50-5.40); WHITE BLOOD COUNT 5.5 x10^3/uL (4.0-11.0)
[2021-03-26] MEDS: hydrALAZINE 25 MG TABLET PO SCH ×2 (08:42→23:05)
[2021-03-26] MEDS: LOSARTAN POTASSIUM 50 MG TABLET. PO SCH (08:42)
[2021-03-26] MEDS: FUROSEMIDE 20 MG TABLET PO SCH (08:42)
[2021-03-26] MEDS: DOXYCYCLINE HYCLATE 100 MG TABLET PO SCH ×2 (08:42→23:03)
[2021-03-26] MEDS: LACTOBACILLUS RHAMNOSUS GG 1 CAPSULE. PO SCH ×2 (08:43→23:03)
[2021-03-26] MEDS: METOPROLOL TART IMMED RELEASE 25 MG TABLET. PO SCH ×2 (08:43→23:04)
[2021-03-26] MEDS: AZITHROMYCIN 250 MG TABLET. PO SCH (08:43)
[2021-03-26] MEDS: cefTRIAXone IV Push 1 GM VIAL. IVP SCH (08:43)
--- NOTE | 2021-03-26 10:50 | NUR ---
Pharmacy Warfarin Dosing Note S:Pharmacy consulted to assist with anticoagulation therapy started with target INR: 2 -3 O:BUSTER ODOM is a 70 year old F with Atrial Fibrillation LABS: Last INR: 2.1 Last HGB: 12.4 Last HCT: 38.7 Last PLT: 189 Last dose of 3 mg given on 03/25/21 at 1619 Previous Regimen: 3MG DAILY Vitamin K given: N Drug Interaction Changes: Same Interacting Drug Ongoing Drug Interactions: azithromycin A:INR of 2.1 is within desired range. Target range for this patient is: 2 -3 P: Warfarin dose: 3 mg Today at 1600 Bridge Therapy: None Next INR due 03/27/21 Pharmacy anticoagulation service will continue to follow. YESENIA HEATH [facility], 03/26/21 [id number]
--- NOTE | 2021-03-26 12:49 | PDOC ---
CARDIO Progress Notes Date and Time Date of Service 03/26/21 Time of Evaluation 1150 Subjective Subjective: No Chest Pain, No Palpitations Vitals Vitals Vital Signs Date Time Temp Pulse Resp B/P (MAP) Pulse Ox O2 Delivery O2 Flow Rate FiO2 03/26/21 11:00 97.8 76 18 177/90 (119) 100 97.8 03/26/21 08:00 Room Air Weight Weight [ ] Input and Output Intake and Output Intake and Output 03/26/21 07:00 Intake Total 320 ml Output Total 300 ml Balance 20 ml Intake Oral 320 ml Output Urine Total 300 ml # Voids 1 Laboratory Labs Laboratory Tests Test 03/26/21 05:45 White Blood Count 5.5 x10^3/uL (4.0-11.0) Red Blood Count 4.22 x10^6/uL (3.50-5.40) Hemoglobin 12.4 g/dL (12.0-15.5) Hematocrit 38.7 % (36.0-47.0) Mean Corpuscular Volume 92 fL (79-100) Mean Corpuscular Hemoglobin 29 pg (25-35) Mean Corpuscular Hemoglobin Concent 32 g/dL (31-37) Red Cell Distribution Width 16.0 % (11.5-14.5) Platelet Count 189 x10^3/uL (140-400) Neutrophils (%) (Auto) 55 % (31-73) Lymphocytes (%) (Auto) 36 % (24-48) Monocytes (%) (Auto) 8 % (0-9) Eosinophils (%) (Auto) 1 % (0-3) Basophils (%) (Auto) 1 % (0-3) Neutrophils # (Auto) 3.0 x10^3/uL (1.8-7.7) Lymphocytes # (Auto) 2.0 x10^3/uL (1.0-4.8) Monocytes # (Auto) 0.4 x10^3/uL (0.0-1.1) Eosinophils # (Auto) 0.1 x10^3/uL (0.0-0.7) Basophils # (Auto) 0.0 x10^3/uL (0.0-0.2) Prothrombin Time 22.9 SEC (11.7-14.0) Prothromb Time International Ratio 2.1 (0.8-1.1) Sodium Level 142 mmol/L (136-145) Potassium Level 3.5 mmol/L (3.5-5.1) Chloride Level 105 mmol/L (98-107) Carbon Dioxide Level 26 mmol/L (21-32) Anion Gap 11 (6-14) Blood Urea Nitrogen 21 mg/dL (7-20) Creatinine 1.1 mg/dL (0.6-1.0) Estimated GFR (Cockcroft-Gault) 59.4 Glucose Level 118 mg/dL (70-99) Calcium Level 8.9 mg/dL (8.5-10.1) Physical Exam HEENT: Neck Supple W Full Motion Chest: Symmetric LUNGS: Other (RA) Heart: irregularly irregular (AFIB, rate controlled ) Extremities: No Edema Neurology: alert, oriented, follow commands Assessment Assessment 1. Acute respiratory failure with acute probable diastolic CHF and COVID PNA 2. Hypertensive urgency; remains labile 3. AFIB; persistent versus paroxysmal. rate controlled. Chronic OAC with warfarin. INR 2.1 4. CAD s/p PCI/stent to RCA 2011 5. PAD s/p CAGE MAKER MACHINE/stent 6. Hyperlipidemia; statin 7. RADHA; better 8. Hypokalemia; replaced Recommendations Lasix therapy Metoprolol for rate control Warfarin for stroke prophylaxis Increase hydralazine for BP control Add lisinopril if BP remains labile Secondary prevention Outpatient echocardiogram Ongoing lung optimization, treatment of COVID PNA Supportive care Justicifation of Admission Dx: Justifications for Admission: Justification of Admission Dx: Yes Comments: COVID PNA Acute diastolic CHF VIANEY BARCLAY APRN Mar 26, 2021 12:49
--- NOTE | 2021-03-26 13:04 | NUR ---
SW following. Discussed with RN, pt from home with family, room air, ada diet, COVID-19 positive. Uses a cane at home. Pt getting SOA when getting up. Echo ordered. RN advised no SW needs at this time. SW will continue to follow.
--- NOTE | 2021-03-26 13:26 | PDOC ---
[facility] [facility] PROGRESS NOTE Date of Service DOS: DATE: 03/26/21 TIME: 13:19 Chief Complaint Chief Complaint Pulmonary Edema with Hypertensive Urgency. COVID-19 History of Present Illness History of Present Illness Ms Acharya 70-year-old female with past medical history hypertension, CAD with stent, PVD, atrial fibrillation, who presents to the ED with complaints of worsening shortness of breath over the past 2 days. States her symptoms are worse with exertion, with associated headache, lightheadedness, and orthopnea. States she has not taken her home blood pressure medications over the past few days because she has not felt well. She went was seen in urgent clinic for her symptoms, but subsequently referred to the ER. On arrival in the ER her blood pressure was significant elevated at 200/98 mmHg. Labs on admission showed sodium 135, potassium 3.2, INR 2.5, troponin <0.017, BNP 3282. Chest x-ray showed ill-defined bilateral lung infiltrates. She was treated with Rocephin and azithromycin. Will admit patient for further medical management. Afebrile. CRP elevated. Continue on Rocephin and doxycycline. She symptomatically improved. Creatinine increased to 1.3 and potassium to 3. Would hold HCTZ, cont furosemide. Cont empiric antibiotics for pneumonia 03/26 Patient was seen and examined today. We discussed the patient's disposition with nurse and reviewed patient's chart. Patient is currently on 3 mg Magnesium. Vitals/I&O Vitals/I&O: Vital Signs Date Time Temp Pulse Resp B/P (MAP) Pulse Ox O2 Delivery O2 Flow Rate FiO2 03/26/21 11:00 97.8 76 18 177/90 (119) 100 97.8 03/26/21 08:00 Room Air I & O 03/25/21 03/25/21 03/26/21 15:00 23:00 07:00 Intake Total 320 ml Output Total 300 ml Balance 320 ml -300 ml Physical Exam General: Alert, Cooperative Heart: Other (Irregular) Abdomen: Normal bowel sounds, Soft Extremities: No clubbing, No cyanosis Skin: No rashes, No breakdown Labs Labs: Laboratory Tests Test 03/26/21 05:45 White Blood Count 5.5 x10^3/uL (4.0-11.0) Red Blood Count 4.22 x10^6/uL (3.50-5.40) Hemoglobin 12.4 g/dL (12.0-15.5) Hematocrit 38.7 % (36.0-47.0) Mean Corpuscular Volume 92 fL (79-100) Mean Corpuscular Hemoglobin 29 pg (25-35) Mean Corpuscular Hemoglobin Concent 32 g/dL (31-37) Red Cell Distribution Width 16.0 % (11.5-14.5) Platelet Count 189 x10^3/uL (140-400) Neutrophils (%) (Auto) 55 % (31-73) Lymphocytes (%) (Auto) 36 % (24-48) Monocytes (%) (Auto) 8 % (0-9) Eosinophils (%) (Auto) 1 % (0-3) Basophils (%) (Auto) 1 % (0-3) Neutrophils # (Auto) 3.0 x10^3/uL (1.8-7.7) Lymphocytes # (Auto) 2.0 x10^3/uL (1.0-4.8) Monocytes # (Auto) 0.4 x10^3/uL (0.0-1.1) Eosinophils # (Auto) 0.1 x10^3/uL (0.0-0.7) Basophils # (Auto) 0.0 x10^3/uL (0.0-0.2) Prothrombin Time 22.9 SEC (11.7-14.0) Prothromb Time International Ratio 2.1 (0.8-1.1) Sodium Level 142 mmol/L (136-145) Potassium Level 3.5 mmol/L (3.5-5.1) Chloride Level 105 mmol/L (98-107) Carbon Dioxide Level 26 mmol/L (21-32) Anion Gap 11 (6-14) Blood Urea Nitrogen 21 mg/dL (7-20) Creatinine 1.1 mg/dL (0.6-1.0) Estimated GFR (Cockcroft-Gault) 59.4 Glucose Level 118 mg/dL (70-99) Calcium Level 8.9 mg/dL (8.5-10.1) Review of Systems Review of Systems: No rashes. No headaches. Assessment and Plan Assessmemt and Plan Respiratory failure Pulmonary Edema with Hypertensive Urgency. COVID-19 1. Full code 2. Continue DVT prophylaxis 3. Continue Cardiac Diet 4. Home Medications 5. Continue antibiotic course Comment Review of Relevant I have reviewed the following items jamari (where applicable) has been applied. Medications: Current Medications Medications (Trade) Dose Ordered Sig/Rosa Route PRN Reason Start Time Stop Time Status Last Admin Dose Admin Warfarin Sodium (Coumadin) 3 mg DAILY16 PO 03/25/21 16:00 03/25/21 16:19 Lactobacillus Rhamnosus (Culturelle) 1 cap BID PO 03/25/21 21:00 03/26/21 08:43 Magnesium Sulfate/ Dextrose 100 ml @ 100 mls/hr 1X ONCE IV 03/25/21 16:30 03/25/21 17:29 DC 03/25/21 16:20 Doxycycline Hyclate (Vibra-Tab) 100 mg BID PO 03/25/21 17:00 03/26/21 08:42 Potassium Chloride (Klor-Con) 40 meq 1X ONCE PO 03/25/21 16:00 03/25/21 16:01 DC 03/25/21 16:18 Justifications for Admission Other Justification BHANU AGOSTO III DO Mar 26, 2021 13:26
[2021-03-26] MEDS ORDERED: hydrALAZINE 25 MG TABLET PO ONE (15:45)
[2021-03-26] MEDS: WARFARIN 3 MG TABLET. PO SCH (16:02)
[2021-03-26] MEDS: hydrALAZINE 20 MG/ML VIAL. IVP PRN (21:17)
[2021-03-26] MEDS: ATORVASTATIN CALCIUM 20 MG TABLET PO SCH (23:05)
[2021-03-26] MEDS: HYDROcodone/APAP 5/325MG 1 TAB TABLET PO PRN (23:09)
[2021-03-27 03:00] VITALS: BP 130/57
[2021-03-27 04:36] LABS: BASO % 1 % (0-3); EOS % 0 % (0-3); HEMATOCRIT 37.5 % (36.0-47.0); HEMOGLOBIN 12.3 g/dL (12.0-15.5); LYMPH # 0.5 x10^3/uL (1.0-4.8); LYMPH % 12 % (24-48); MEAN CORPUSCULAR HEMOGLOBIN 29 pg (25-35); MEAN CORPUSCULAR HGB CONC 33 g/dL (31-37); MEAN CORPUSCULAR VOLUME 89 fL (79-100); MONO # 0.2 x10^3/uL (0.0-1.1); MONO % 5 % (0-9); NEUT # 3.5 x10^3/uL (1.8-7.7); NEUT % 82 % (31-73); PLATELET COUNT 177 x10^3/uL (140-400); RED BLOOD COUNT 4.23 x10^6/uL (3.50-5.40); WHITE BLOOD COUNT 4.3 x10^3/uL (4.0-11.0)
[2021-03-27 04:40] LABS: PROTHROMBIN TIME PATIENT 17.9 SEC (11.7-14.0)
[2021-03-27 04:53] LABS: CREATININE 1.2 mg/dL (0.6-1.0); GFR 53.7; POTASSIUM 3.1 mmol/L (3.5-5.1)
[2021-03-27 07:00] VITALS: BP 151/72
[2021-03-27] MEDS: LOSARTAN POTASSIUM 50 MG TABLET. PO SCH (08:41)
[2021-03-27] MEDS: LACTOBACILLUS RHAMNOSUS GG 1 CAPSULE. PO SCH ×2 (08:41→21:36)
[2021-03-27] MEDS: DOXYCYCLINE HYCLATE 100 MG TABLET PO SCH ×2 (08:41→21:36)
[2021-03-27] MEDS: FUROSEMIDE 20 MG TABLET PO SCH (08:42)
[2021-03-27] MEDS: hydrALAZINE 25 MG TABLET PO SCH ×2 (08:42→21:36)
[2021-03-27] MEDS: METOPROLOL TART IMMED RELEASE 25 MG TABLET. PO SCH ×2 (08:42→21:36)
[2021-03-27] MEDS: cefTRIAXone IV Push 1 GM VIAL. IVP SCH (08:43)
[2021-03-27] MEDS: AZITHROMYCIN 250 MG TABLET. PO SCH (08:43)
--- NOTE | 2021-03-27 09:46 | NUR ---
Pharmacy Warfarin Dosing Note S:Pharmacy consulted to assist with anticoagulation therapy started with target INR: 2 -3 O:BUSTER ODOM is a 70 year old F with Atrial Fibrillation LABS: Last INR: 1.5 Last HGB: 12.3 Last HCT: 37.5 Last PLT: 177 Last dose of 3 mg given on 03/26/21 at 1602 Previous Regimen: 3MG DAILY Vitamin K given: N Drug Interaction Changes: Same Interacting Drug Ongoing Drug Interactions: azithromycin A:INR of 1.5 is below desired range. Target range for this patient is: 2 -3 P: Warfarin dose: 5 mg Today at 1600 Bridge Therapy: None Next INR due 03/28/21 Pharmacy anticoagulation service will continue to follow. YESENIA HEATH [facility], 03/27/21 0540
[2021-03-27 11:00] VITALS: BP 146/66
--- NOTE | 2021-03-27 12:13 | PDOC ---
CARDIO Progress Notes Date and Time Date of Service 03/27/21 Time of Evaluation 1210 Subjective Subjective: No Chest Pain, No Palpitations, Other (feel weak, fatigued ) Vitals Vitals Vital Signs Date Time Temp Pulse Resp B/P (MAP) Pulse Ox O2 Delivery O2 Flow Rate FiO2 03/27/21 11:00 97.8 83 20 146/66 (92) 100 97.8 03/27/21 08:00 Nasal Cannula 2.0 Weight Weight [ ] Input and Output Intake and Output l Intake and Output 03/27/21 07:00 Intake Total 250 ml Output Total 1100 ml Balance -850 ml Intake Oral 250 ml Output Urine Total 700 ml Emesis 400 ml Laboratory Labs Laboratory Tests Test 03/27/21 04:05 White Blood Count 4.3 x10^3/uL (4.0-11.0) Red Blood Count 4.23 x10^6/uL (3.50-5.40) Hemoglobin 12.3 g/dL (12.0-15.5) Hematocrit 37.5 % (36.0-47.0) Mean Corpuscular Volume 89 fL (79-100) Mean Corpuscular Hemoglobin 29 pg (25-35) Mean Corpuscular Hemoglobin Concent 33 g/dL (31-37) Red Cell Distribution Width 16.0 % (11.5-14.5) Platelet Count 177 x10^3/uL (140-400) Neutrophils (%) (Auto) 82 % (31-73) Lymphocytes (%) (Auto) 12 % (24-48) Monocytes (%) (Auto) 5 % (0-9) Eosinophils (%) (Auto) 0 % (0-3) Basophils (%) (Auto) 1 % (0-3) Neutrophils # (Auto) 3.5 x10^3/uL (1.8-7.7) Lymphocytes # (Auto) 0.5 x10^3/uL (1.0-4.8) Monocytes # (Auto) 0.2 x10^3/uL (0.0-1.1) Eosinophils # (Auto) 0.0 x10^3/uL (0.0-0.7) Basophils # (Auto) 0.0 x10^3/uL (0.0-0.2) Prothrombin Time 17.9 SEC (11.7-14.0) Prothromb Time International Ratio 1.5 (0.8-1.1) Sodium Level 143 mmol/L (136-145) Potassium Level 3.1 mmol/L (3.5-5.1) Chloride Level 105 mmol/L (98-107) Carbon Dioxide Level 30 mmol/L (21-32) Anion Gap 8 (6-14) Blood Urea Nitrogen 21 mg/dL (7-20) Creatinine 1.2 mg/dL (0.6-1.0) Estimated GFR (Cockcroft-Gault) 53.7 Glucose Level 114 mg/dL (70-99) Calcium Level 9.0 mg/dL (8.5-10.1) Physical Exam HEENT: Neck Supple W Full Motion Chest: Symmetric LUNGS: Other (NC) Heart: irregularly irregular (AFIB, rate controlled ) Extremities: No Edema Neurology: alert, oriented, follow commands Assessment Assessment 1. Acute respiratory failure with acute probable diastolic CHF and COVID PNA 2. Hypertensive urgency; better controlled 3. AFIB; persistent versus paroxysmal. rate controlled. Chronic OAC with warfarin. INR 1.5 4. CAD s/p PCI/stent to RCA 2011 5. PAD s/p CLOTH NEUTRALIZER/stent 6. Hyperlipidemia; statin 7. RADHA; better 8. Hypokalemia; replaced Recommendations Oral Lasix. Monitor renal function Metoprolol for rate control Warfarin for stroke prophylaxis Continue current antiHTN therapy Secondary prevention Outpatient echocardiogram Ongoing lung optimization, treatment of COVID PNA Supportive care Justicifation of Admission Dx: Justifications for Admission: Justification of Admission Dx: Yes VIANEY BARCLAY APRN Mar 27, 2021 12:13
[2021-03-27] MEDS ORDERED: POTASSIUM CHLORIDE 20 MEQ TABLET.ER. PO ONE (13:15)
--- NOTE | 2021-03-27 13:26 | PDOC ---
[facility] PROGRESS NOTE Date of Service DOS: DATE: 03/27/21 TIME: 13:20 Chief Complaint Chief Complaint Hypertensive Urgency Pulmonary Edema COVID-19 History of Present Illness History of Present Illness Ms Acharya 70-year-old female with past medical history hypertension, CAD with stent, PVD, atrial fibrillation, who presents to the ED with complaints of worsening shortness of breath over the past 2 days. States her symptoms are worse with exertion, with associated headache, lightheadedness, and orthopnea. States she has not taken her home blood pressure medications over the past few days because she has not felt well. She went was seen in urgent clinic for her symptoms, but subsequently referred to the ER. On arrival in the ER her blood pressure was significant elevated at 200/98 mmHg. Labs on admission showed sodium 135, potassium 3.2, INR 2.5, troponin <0.017, BNP 3282. Chest x-ray showed ill-defined bilateral lung infiltrates. She was treated with Rocephin and azithromycin. Will admit patient for further medical management. Afebrile. CRP elevated. Continue on Rocephin and doxycycline. She symptomatically improved. Creatinine increased to 1.3 and potassium to 3. Would hold HCTZ, cont furosemide. Cont empiric antibiotics for pneumonia 03/26 Patient was seen and examined today. We discussed the patient's disposition with nurse and reviewed patient's chart. Patient is currently on 3 mg Magnesium. 03/27: Ms. Acharya was seen and examined in her room this morning. We discussed with the nurse the patient's disposition and reviewed her chart. After reviewing her Potassium labs, we will administer Potassium Chloride 40mg PO x 1 and review labs. Vitals/I&O Vitals/I&O: Vital Signs Date Time Temp Pulse Resp B/P (MAP) Pulse Ox O2 Delivery O2 Flow Rate FiO2 03/27/21 11:00 97.8 83 20 146/66 (92) 100 97.8 03/27/21 08:00 Nasal Cannula 2.0 I & O 03/26/21 03/26/21 03/27/21 15:00 23:00 07:00 Intake Total 250 ml Output Total 800 ml 300 ml Balance -800 ml -50 ml Physical Exam General: Alert, Cooperative Heart: Regular rate, No murmurs, Other (Irregular) Abdomen: Normal bowel sounds, Soft Extremities: No clubbing, No cyanosis Skin: No rashes, No breakdown Labs Labs: Laboratory Tests Test 03/27/21 04:05 White Blood Count 4.3 x10^3/uL (4.0-11.0) Red Blood Count 4.23 x10^6/uL (3.50-5.40) Hemoglobin 12.3 g/dL (12.0-15.5) Hematocrit 37.5 % (36.0-47.0) Mean Corpuscular Volume 89 fL (79-100) Mean Corpuscular Hemoglobin 29 pg (25-35) Mean Corpuscular Hemoglobin Concent 33 g/dL (31-37) Red Cell Distribution Width 16.0 % (11.5-14.5) Platelet Count 177 x10^3/uL (140-400) Neutrophils (%) (Auto) 82 % (31-73) Lymphocytes (%) (Auto) 12 % (24-48) Monocytes (%) (Auto) 5 % (0-9) Eosinophils (%) (Auto) 0 % (0-3) Basophils (%) (Auto) 1 % (0-3) Neutrophils # (Auto) 3.5 x10^3/uL (1.8-7.7) Lymphocytes # (Auto) 0.5 x10^3/uL (1.0-4.8) Monocytes # (Auto) 0.2 x10^3/uL (0.0-1.1) Eosinophils # (Auto) 0.0 x10^3/uL (0.0-0.7) Basophils # (Auto) 0.0 x10^3/uL (0.0-0.2) Prothrombin Time 17.9 SEC (11.7-14.0) Prothromb Time International Ratio 1.5 (0.8-1.1) Sodium Level 143 mmol/L (136-145) Potassium Level 3.1 mmol/L (3.5-5.1) Chloride Level 105 mmol/L (98-107) Carbon Dioxide Level 30 mmol/L (21-32) Anion Gap 8 (6-14) Blood Urea Nitrogen 21 mg/dL (7-20) Creatinine 1.2 mg/dL (0.6-1.0) Estimated GFR (Cockcroft-Gault) 53.7 Glucose Level 114 mg/dL (70-99) Calcium Level 9.0 mg/dL (8.5-10.1) Review of Systems Review of Systems: No rashes No bruises Assessment and Plan Assessmemt and Plan Problems Medical Problems: (1) Dyspnea Status: Acute (2) Exertional dyspnea Status: Acute (3) Person under investigation for COVID-19 Status: Acute (4) Uncontrolled hypertension Status: Acute 1) Continue Respiratory Isolation 2) Continue DVT Prophylaxis 3) Continue Potassium Labs 4) Potassium Chloride 40mg PO, 1x Dose 5) Home Medications Comment Review of Relevant I have reviewed the following items jamari (where applicable) has been applied. Medications: Current Medications Medications (Trade) Dose Ordered Sig/Rosa Route PRN Reason Start Time Stop Time Status Last Admin Dose Admin Hydralazine HCl (Apresoline) 50 mg BID PO 03/26/21 21:00 03/27/21 08:42 Hydralazine HCl (Apresoline) 25 mg 1X ONCE PO 03/26/21 15:45 03/26/21 15:46 DC 03/26/21 16:02 Justifications for Admission Other Justification BHANU AGOSTO III DO Mar 27, 2021 13:26
[2021-03-27 15:00] VITALS: BP 145/68
[2021-03-27] MEDS ORDERED: WARFARIN 5 MG TABLET. PO ONE (16:00)
[2021-03-27 19:00] VITALS: BP 146/68
[2021-03-27] MEDS: ZOLPIDEM 5 MG TABLET. PO PRN (21:36)
[2021-03-27] MEDS: ATORVASTATIN CALCIUM 20 MG TABLET PO SCH (21:36)
[2021-03-27 23:35] VITALS: BP 167/72
[2021-03-28 03:48] VITALS: BP 181/78
[2021-03-28 06:51] LABS: BASO % 1 % (0-3); EOS % 1 % (0-3); HEMATOCRIT 36.5 % (36.0-47.0); HEMOGLOBIN 11.8 g/dL (12.0-15.5); LYMPH # 1.4 x10^3/uL (1.0-4.8); LYMPH % 33 % (24-48); MEAN CORPUSCULAR HEMOGLOBIN 29 pg (25-35); MEAN CORPUSCULAR HGB CONC 32 g/dL (31-37); MEAN CORPUSCULAR VOLUME 90 fL (79-100); MONO # 0.5 x10^3/uL (0.0-1.1); MONO % 12 % (0-9); NEUT # 2.2 x10^3/uL (1.8-7.7); NEUT % 53 % (31-73); PLATELET COUNT 180 x10^3/uL (140-400); RED BLOOD COUNT 4.06 x10^6/uL (3.50-5.40); RED CELL DISTRIBUTION WIDTH 16.2 % (11.5-14.5); WHITE BLOOD COUNT 4.1 x10^3/uL (4.0-11.0)
[2021-03-28 07:00] VITALS: BP 174/77
[2021-03-28 07:24] LABS: CALCIUM 8.5 mg/dL (8.5-10.1); CREATININE 1.2 mg/dL (0.6-1.0); GFR 53.7; POTASSIUM 3.9 mmol/L (3.5-5.1)
[2021-03-28 08:05] LABS: PROTHROMBIN TIME PATIENT 19.1 SEC (11.7-14.0)
--- NOTE | 2021-03-28 09:43 | PDOC ---
[facility] [facility] PROGRESS NOTE Date of Service DOS: DATE: 03/28/21 TIME: 09:38 Chief Complaint Chief Complaint COVID-19 Pulmonary Edema Hypertensive Urgency History of Present Illness History of Present Illness Ms Acharya 70-year-old female with past medical history hypertension, CAD with stent, PVD, atrial fibrillation, who presents to the ED with complaints of worsening shortness of breath over the past 2 days. States her symptoms are worse with exertion, with associated headache, lightheadedness, and orthopnea. States she has not taken her home blood pressure medications over the past few days because she has not felt well. She went was seen in urgent clinic for her symptoms, but subsequently referred to the ER. On arrival in the ER her blood pressure was significant elevated at 200/98 mmHg. Labs on admission showed sodium 135, potassium 3.2, INR 2.5, troponin <0.017, BNP 3282. Chest x-ray showed ill-defined bilateral lung infiltrates. She was treated with Rocephin and azithromycin. Will admit patient for further medical management. Afebrile. CRP elevated. Continue on Rocephin and doxycycline. She symptomatically improved. Creatinine increased to 1.3 and potassium to 3. Would hold HCTZ, cont furosemide. Cont empiric antibiotics for pneumonia 03/26 Patient was seen and examined today. We discussed the patient's disposition with nurse and reviewed patient's chart. Patient is currently on 3 mg Magnesium. 03/27: Ms. Acharya was seen and examined in her room this morning. We discussed with the nurse the patient's disposition and reviewed her chart. After reviewing her Potassium labs, we will administer Potassium Chloride 40mg PO x 1 and review labs. 03/28: Ms. Acharya was examined in her room today. She was sitting up and eating her breakfast this morning and overall appeared much better. We discussed her current disposition and reviewed her chart. Vitals/I&O Vitals/I&O: Vital Signs Date Time Temp Pulse Resp B/P (MAP) Pulse Ox O2 Delivery O2 Flow Rate FiO2 03/28/21 07:00 97.2 82 20 174/77 (109) 98 Nasal Cannula 2.0 97.2 I & O 03/27/21 03/27/21 03/28/21 15:00 23:00 07:00 Intake Total 0 ml Balance 0 ml Physical Exam General: Alert, Cooperative Heart: Regular rate, No murmurs, Other (Irregular) Abdomen: Normal bowel sounds, Soft Extremities: No clubbing, No cyanosis Skin: No rashes, No breakdown Labs Labs: Laboratory Tests Test 03/28/21 05:45 White Blood Count 4.1 x10^3/uL (4.0-11.0) Red Blood Count 4.06 x10^6/uL (3.50-5.40) Hemoglobin 11.8 g/dL (12.0-15.5) Hematocrit 36.5 % (36.0-47.0) Mean Corpuscular Volume 90 fL (79-100) Mean Corpuscular Hemoglobin 29 pg (25-35) Mean Corpuscular Hemoglobin Concent 32 g/dL (31-37) Red Cell Distribution Width 16.2 % (11.5-14.5) Platelet Count 180 x10^3/uL (140-400) Neutrophils (%) (Auto) 53 % (31-73) Lymphocytes (%) (Auto) 33 % (24-48) Monocytes (%) (Auto) 12 % (0-9) Eosinophils (%) (Auto) 1 % (0-3) Basophils (%) (Auto) 1 % (0-3) Neutrophils # (Auto) 2.2 x10^3/uL (1.8-7.7) Lymphocytes # (Auto) 1.4 x10^3/uL (1.0-4.8) Monocytes # (Auto) 0.5 x10^3/uL (0.0-1.1) Eosinophils # (Auto) 0.0 x10^3/uL (0.0-0.7) Basophils # (Auto) 0.0 x10^3/uL (0.0-0.2) Prothrombin Time 19.1 SEC (11.7-14.0) Prothromb Time International Ratio 1.6 (0.8-1.1) Sodium Level 139 mmol/L (136-145) Potassium Level 3.9 mmol/L (3.5-5.1) Chloride Level 102 mmol/L (98-107) Carbon Dioxide Level 33 mmol/L (21-32) Anion Gap 4 (6-14) Blood Urea Nitrogen 17 mg/dL (7-20) Creatinine 1.2 mg/dL (0.6-1.0) Estimated GFR (Cockcroft-Gault) 53.7 Glucose Level 89 mg/dL (70-99) Calcium Level 8.5 mg/dL (8.5-10.1) Review of Systems Review of Systems: No headache No bleeding Assessment and Plan Assessmemt and Plan Problems Medical Problems: (1) Dyspnea Status: Acute (2) Exertional dyspnea Status: Acute (3) Person under investigation for COVID-19 Status: Acute (4) Uncontrolled hypertension Status: Acute 1) Continue Respiratory Isolation 2) DVT Prohylaxis 3) Home Medications 4) Full Code 5) Continue to monitor labs Comment Review of Relevant I have reviewed the following items jamari (where applicable) has been applied. Medications: Current Medications Medications (Trade) Dose Ordered Sig/Rosa Route PRN Reason Start Time Stop Time Status Last Admin Dose Admin Warfarin Sodium (Coumadin) 5 mg 1X WARF ONCE PO 03/27/21 16:00 03/27/21 16:01 DC 03/27/21 17:36 Potassium Chloride (Klor-Con) 40 meq 1X ONCE PO 03/27/21 13:15 03/27/21 13:21 DC 03/27/21 14:30 Justifications for Admission Other Justification BHANU AGOTSO III DO Mar 28, 2021 09:43
[2021-03-28] MEDS: LACTOBACILLUS RHAMNOSUS GG 1 CAPSULE. PO SCH ×2 (10:27→20:52)
[2021-03-28] MEDS: FUROSEMIDE 20 MG TABLET PO SCH (10:27)
[2021-03-28] MEDS: DOXYCYCLINE HYCLATE 100 MG TABLET PO SCH ×2 (10:27→20:52)
[2021-03-28] MEDS: LOSARTAN POTASSIUM 50 MG TABLET. PO SCH (10:28)
[2021-03-28] MEDS: METOPROLOL TART IMMED RELEASE 25 MG TABLET. PO SCH ×2 (10:28→20:53)
[2021-03-28] MEDS: AZITHROMYCIN 250 MG TABLET. PO SCH (10:28)
[2021-03-28] MEDS: hydrALAZINE 25 MG TABLET PO SCH ×2 (10:28→20:53)
[2021-03-28] MEDS: cefTRIAXone IV Push 1 GM VIAL. IVP SCH (10:29)
--- NOTE | 2021-03-28 10:45 | NUR ---
Pharmacy Warfarin Dosing Note S: Pharmacy consulted to assist with anticoagulation therapy O: BUSTER ODOM is a 70 year old F with Atrial Fibrillation LABS: Last INR: 1.6 Last HGB: 11.8 Last HCT: 36.5 Last PLT: 180 Last dose of 5 mg given on 03/27/21 at 1736 Vitamin K given: N Ongoing Drug Interactions: . A:INR of 1.6 is below desired range. Target range for this patient is: 2 -3 P: Warfarin dose: 4 mg Today at 1600 Bridge Therapy: None Next INR due tomorrow Pharmacy anticoagulation service will continue to follow. Belinda Christiansen RPH, 03/28/21 1252
[2021-03-28 10:59] VITALS: BP 145/69
--- NOTE | 2021-03-28 11:21 | PDOC ---
[facility] Progress Notes Date and Time Date of Service 03/28/21 Time of Evaluation 1115 Subjective Subjective: No Chest Pain, No Palpitations, Other (feels better today ) Vitals Vitals Vital Signs Date Time Temp Pulse Resp B/P (MAP) Pulse Ox O2 Delivery O2 Flow Rate FiO2 03/28/21 10:59 98.5 84 20 145/69 (94) 100 Nasal Cannula 2.0 98.5 Weight Weight [ ] Input and Output Intake and Output Intake and Output 03/28/21 07:00 Intake Total 0 ml Balance 0 ml Intake Oral 0 ml # Voids 2 Laboratory Labs Laboratory Tests Test 03/28/21 05:45 White Blood Count 4.1 x10^3/uL (4.0-11.0) Red Blood Count 4.06 x10^6/uL (3.50-5.40) Hemoglobin 11.8 g/dL (12.0-15.5) Hematocrit 36.5 % (36.0-47.0) Mean Corpuscular Volume 90 fL (79-100) Mean Corpuscular Hemoglobin 29 pg (25-35) Mean Corpuscular Hemoglobin Concent 32 g/dL (31-37) Red Cell Distribution Width 16.2 % (11.5-14.5) Platelet Count 180 x10^3/uL (140-400) Neutrophils (%) (Auto) 53 % (31-73) Lymphocytes (%) (Auto) 33 % (24-48) Monocytes (%) (Auto) 12 % (0-9) Eosinophils (%) (Auto) 1 % (0-3) Basophils (%) (Auto) 1 % (0-3) Neutrophils # (Auto) 2.2 x10^3/uL (1.8-7.7) Lymphocytes # (Auto) 1.4 x10^3/uL (1.0-4.8) Monocytes # (Auto) 0.5 x10^3/uL (0.0-1.1) Eosinophils # (Auto) 0.0 x10^3/uL (0.0-0.7) Basophils # (Auto) 0.0 x10^3/uL (0.0-0.2) Prothrombin Time 19.1 SEC (11.7-14.0) Prothromb Time International Ratio 1.6 (0.8-1.1) Sodium Level 139 mmol/L (136-145) Potassium Level 3.9 mmol/L (3.5-5.1) Chloride Level 102 mmol/L (98-107) Carbon Dioxide Level 33 mmol/L (21-32) Anion Gap 4 (6-14) Blood Urea Nitrogen 17 mg/dL (7-20) Creatinine 1.2 mg/dL (0.6-1.0) Estimated GFR (Cockcroft-Gault) 53.7 Glucose Level 89 mg/dL (70-99) Calcium Level 8.5 mg/dL (8.5-10.1) Physical Exam HEENT: Neck Supple W Full Motion Chest: Symmetric LUNGS: Other (NC) Heart: irregularly irregular (AFIB, rate controlled ) Extremities: No Edema Neurology: alert, oriented, follow commands Assessment Assessment 1. Acute respiratory failure with acute probable diastolic CHF and COVID PNA 2. Hypertensive urgency; labile 3. AFIB; persistent versus paroxysmal. rate controlled. Chronic OAC with warfarin. INR 1.6 4. CAD s/p PCI/stent to RCA 2012 5. PAD s/p REHABILITATOR/stent 6. Hyperlipidemia; statin 7. RADHA; better 8. Hypokalemia, hypomagnesemia Recommendations Increase hydralazine Replace Mg Oral Lasix. Add scheduled potassium replacement Metoprolol for rate control Warfarin for stroke prophylaxis Secondary prevention Outpatient echocardiogram Ongoing lung optimization, treatment of COVID PNA Supportive care Justicifation of Admission Dx: Justifications for Admission: Justification of Admission Dx: Yes VIANEY BARCLAY APRN Mar 28, 2021 11:21
--- NOTE | 2021-03-28 11:31 | NUR ---
SW following. Discussed with RN, pt from home with family, 2L (does not use oxygen at home), ada diet. COVID-19 positive. Echo ordered. SW will continue to follow.
[2021-03-28] MEDS: methylPREDNISolone SOD SUCC PF 40 MG/ML VIAL. IV SCH ×2 (13:53→20:53)
[2021-03-28] MEDS ORDERED: hydrALAZINE 25 MG TABLET PO ONE (14:30)
[2021-03-28] MEDS ORDERED: MAGNESIUM SULFATE 2GM 50 ML IV ONE (14:30)
[2021-03-28 15:00] VITALS: BP 139/75
[2021-03-28] MEDS: POTASSIUM CHLORIDE 10 MEQ TABLET.ER. PO SCH (15:18)
[2021-03-28] MEDS ORDERED: WARFARIN 4 MG TABLET. PO ONE (16:00)
[2021-03-28 19:00] VITALS: BP 185/82
[2021-03-28] MEDS: ZOLPIDEM 5 MG TABLET. PO PRN (20:52)
[2021-03-28] MEDS: ATORVASTATIN CALCIUM 20 MG TABLET PO SCH (20:52)
[2021-03-28 23:00] VITALS: BP 177/88
[2021-03-29 03:00] VITALS: BP 156/80
[2021-03-29 07:00] VITALS: BP 177/86
[2021-03-29 07:52] LABS: BASO % 0 % (0-3); EOS % 0 % (0-3); HEMOGLOBIN 12.6 g/dL (12.0-15.5); LYMPH # 0.9 x10^3/uL (1.0-4.8); LYMPH % 16 % (24-48); MEAN CORPUSCULAR HEMOGLOBIN 30 pg (25-35); MEAN CORPUSCULAR HGB CONC 33 g/dL (31-37); MEAN CORPUSCULAR VOLUME 90 fL (79-100); MONO # 0.3 x10^3/uL (0.0-1.1); MONO % 5 % (0-9); NEUT # 4.5 x10^3/uL (1.8-7.7); NEUT % 79 % (31-73); PLATELET COUNT 193 x10^3/uL (140-400); RED BLOOD COUNT 4.24 x10^6/uL (3.50-5.40); RED CELL DISTRIBUTION WIDTH 15.7 % (11.5-14.5); WHITE BLOOD COUNT 5.7 x10^3/uL (4.0-11.0)
[2021-03-29 08:22] LABS: PROTHROMBIN TIME PATIENT 18.3 SEC (11.7-14.0)
[2021-03-29 08:48] LABS: CALCIUM 8.4 mg/dL (8.5-10.1); GFR 66.3; POTASSIUM 4.6 mmol/L (3.5-5.1)
[2021-03-29] MEDS: hydrALAZINE 25 MG TABLET PO SCH ×2 (09:11→21:19)
[2021-03-29] MEDS: methylPREDNISolone SOD SUCC PF 40 MG/ML VIAL. IV SCH ×2 (09:12→21:17)
[2021-03-29] MEDS: LACTOBACILLUS RHAMNOSUS GG 1 CAPSULE. PO SCH ×2 (09:12→21:17)
[2021-03-29] MEDS: cefTRIAXone IV Push 1 GM VIAL. IVP SCH (09:12)
[2021-03-29] MEDS: POTASSIUM CHLORIDE 10 MEQ TABLET.ER. PO SCH (09:12)
[2021-03-29] MEDS: LOSARTAN POTASSIUM 50 MG TABLET. PO SCH (09:12)
[2021-03-29] MEDS: DOXYCYCLINE HYCLATE 100 MG TABLET PO SCH ×2 (09:12→21:18)
[2021-03-29] MEDS: FUROSEMIDE 20 MG TABLET PO SCH (09:12)
[2021-03-29] MEDS: METOPROLOL TART IMMED RELEASE 25 MG TABLET. PO SCH ×2 (09:14→21:18)
[2021-03-29 11:00] VITALS: BP 160/80
--- NOTE | 2021-03-29 12:10 | PDOC ---
[employer] 03/29/21 1210: [facility] Progress Notes Date and Time Date of Service 03/29/21 Time of Evaluation 1200 Subjective Subjective: No Chest Pain, No Palpitations, Other (not more SOA) Vitals Vitals Vital Signs Date Time Temp Pulse Resp B/P (MAP) Pulse Ox O2 Delivery O2 Flow Rate FiO2 03/29/21 11:00 86 20 160/80 (106) 98 Nasal Cannula 2.0 03/29/21 07:00 97.6 97.6 Weight Weight [ ] Input and Output Intake and Output Intake and Output 03/29/21 07:00 Intake Total 540 ml Output Total 400 ml Balance 140 ml Intake Oral 540 ml Output Urine Total 400 ml # Voids 1 Laboratory Labs Laboratory Tests Test 03/29/21 07:30 White Blood Count 5.7 x10^3/uL (4.0-11.0) Red Blood Count 4.24 x10^6/uL (3.50-5.40) Hemoglobin 12.6 g/dL (12.0-15.5) Hematocrit 38.0 % (36.0-47.0) Mean Corpuscular Volume 90 fL (79-100) Mean Corpuscular Hemoglobin 30 pg (25-35) Mean Corpuscular Hemoglobin Concent 33 g/dL (31-37) Red Cell Distribution Width 15.7 % (11.5-14.5) Platelet Count 193 x10^3/uL (140-400) Neutrophils (%) (Auto) 79 % (31-73) Lymphocytes (%) (Auto) 16 % (24-48) Monocytes (%) (Auto) 5 % (0-9) Eosinophils (%) (Auto) 0 % (0-3) Basophils (%) (Auto) 0 % (0-3) Neutrophils # (Auto) 4.5 x10^3/uL (1.8-7.7) Lymphocytes # (Auto) 0.9 x10^3/uL (1.0-4.8) Monocytes # (Auto) 0.3 x10^3/uL (0.0-1.1) Eosinophils # (Auto) 0.0 x10^3/uL (0.0-0.7) Basophils # (Auto) 0.0 x10^3/uL (0.0-0.2) Prothrombin Time 18.3 SEC (11.7-14.0) Prothromb Time International Ratio 1.5 (0.8-1.1) Sodium Level 140 mmol/L (136-145) Potassium Level 4.6 mmol/L (3.5-5.1) Chloride Level 105 mmol/L (98-107) Carbon Dioxide Level 28 mmol/L (21-32) Anion Gap 7 (6-14) Blood Urea Nitrogen 22 mg/dL (7-20) Creatinine 1.0 mg/dL (0.6-1.0) Estimated GFR (Cockcroft-Gault) 66.3 Glucose Level 132 mg/dL (70-99) Calcium Level 8.4 mg/dL (8.5-10.1) Physical Exam HEENT: Neck Supple W Full Motion Chest: Symmetric LUNGS: Other (NC) Heart: irregularly irregular (AFIB, rate controlled ) Extremities: No Edema Neurology: alert, oriented, follow commands Assessment Assessment 1. Acute respiratory failure with acute probable diastolic CHF and COVID PNA 2. Hypertensive urgency; remains labile 3. AFIB; persistent versus paroxysmal. rate controlled. Chronic OAC with warfarin. INR 1.5 4. CAD s/p PCI/stent to RCA 2011 5. PAD s/p ACQUISITIONS EDITOR/stent 6. Hyperlipidemia; statin 7. RADHA; better 8. Hypokalemia, hypomagnesemia Recommendations Increase hydralazine Add amlodipine Oral Lasix. Metoprolol for rate control Warfarin for stroke prophylaxis Secondary prevention Outpatient echocardiogram Ongoing lung optimization, treatment of COVID PNA Supportive care Justicifation of Admission Dx: Justifications for Admission: Justification of Admission Dx: Yes WEI MABRY MD 03/29/21 1712: CARD[facility] Progress Notes Plan Plan The patient was seen and interviewed as well as examined at the bedside. The chart was reviewed. The case was discussed. Agree with the plan of care. VIANEY BARCLAY APRN Mar 29, 2021 12:10 WEI MABRY MD Mar 29, 2021 17:12
--- NOTE | 2021-03-29 12:34 | PDOC ---
[facility] [facility] PROGRESS NOTE Date of Service DOS: DATE: 03/29/21 TIME: 12:27 Chief Complaint Chief Complaint COVID-19 Hypertensive Urgency Pulmonary Edema History of Present Illness History of Present Illness Ms Acharya 70-year-old female with past medical history hypertension, CAD with stent, PVD, atrial fibrillation, who presents to the ED with complaints of worsening shortness of breath over the past 2 days. States her symptoms are worse with exertion, with associated headache, lightheadedness, and orthopnea. States she has not taken her home blood pressure medications over the past few days because she has not felt well. She went was seen in urgent clinic for her symptoms, but subsequently referred to the ER. On arrival in the ER her blood pressure was significant elevated at 200/98 mmHg. Labs on admission showed sodium 135, potassium 3.2, INR 2.5, troponin <0.017, BNP 3282. Chest x-ray showed ill-defined bilateral lung infiltrates. She was treated with Rocephin and azithromycin. Will admit patient for further medical management. Afebrile. CRP elevated. Continue on Rocephin and doxycycline. She symptomatically improved. Creatinine increased to 1.3 and potassium to 3. Would hold HCTZ, cont furosemide. Cont empiric antibiotics for pneumonia 03/26 Patient was seen and examined today. We discussed the patient's disposition with nurse and reviewed patient's chart. Patient is currently on 3 mg Magnesium. 03/27: Ms. Acharya was seen and examined in her room this morning. We discussed with the nurse the patient's disposition and reviewed her chart. After reviewing her Potassium labs, we will administer Potassium Chloride 40mg PO x 1 and review labs. 03/28: Ms. Acharya was examined in her room today. She was sitting up and eating her breakfast this morning and overall appeared much better. We discussed her current disposition and reviewed her chart. 03/29: The patient was seen and examined in her room today. This morning, she was sitting up and eating her breakfast and continues to improve. We discussed her chart and current disposition with her nurse. Vitals/I&O Vitals/I&O: Vital Signs Date Time Temp Pulse Resp B/P (MAP) Pulse Ox O2 Delivery O2 Flow Rate FiO2 03/29/21 11:00 86 20 160/80 (106) 98 Nasal Cannula 2.0 03/29/21 07:00 97.6 97.6 I & O 03/28/21 03/28/21 03/29/21 15:00 23:00 07:00 Intake Total 340 ml 200 ml Output Total 400 ml Balance 340 ml 200 ml -400 ml Physical Exam General: Alert, Cooperative Heart: Regular rate, No murmurs, Other (Irregular) Abdomen: Normal bowel sounds, Soft Extremities: No clubbing, No cyanosis Skin: No rashes, No breakdown Labs Labs: Laboratory Tests Test 03/29/21 07:30 White Blood Count 5.7 x10^3/uL (4.0-11.0) Red Blood Count 4.24 x10^6/uL (3.50-5.40) Hemoglobin 12.6 g/dL (12.0-15.5) Hematocrit 38.0 % (36.0-47.0) Mean Corpuscular Volume 90 fL (79-100) Mean Corpuscular Hemoglobin 30 pg (25-35) Mean Corpuscular Hemoglobin Concent 33 g/dL (31-37) Red Cell Distribution Width 15.7 % (11.5-14.5) Platelet Count 193 x10^3/uL (140-400) Neutrophils (%) (Auto) 79 % (31-73) Lymphocytes (%) (Auto) 16 % (24-48) Monocytes (%) (Auto) 5 % (0-9) Eosinophils (%) (Auto) 0 % (0-3) Basophils (%) (Auto) 0 % (0-3) Neutrophils # (Auto) 4.5 x10^3/uL (1.8-7.7) Lymphocytes # (Auto) 0.9 x10^3/uL (1.0-4.8) Monocytes # (Auto) 0.3 x10^3/uL (0.0-1.1) Eosinophils # (Auto) 0.0 x10^3/uL (0.0-0.7) Basophils # (Auto) 0.0 x10^3/uL (0.0-0.2) Prothrombin Time 18.3 SEC (11.7-14.0) Prothromb Time International Ratio 1.5 (0.8-1.1) Sodium Level 140 mmol/L (136-145) Potassium Level 4.6 mmol/L (3.5-5.1) Chloride Level 105 mmol/L (98-107) Carbon Dioxide Level 28 mmol/L (21-32) Anion Gap 7 (6-14) Blood Urea Nitrogen 22 mg/dL (7-20) Creatinine 1.0 mg/dL (0.6-1.0) Estimated GFR (Cockcroft-Gault) 66.3 Glucose Level 132 mg/dL (70-99) Calcium Level 8.4 mg/dL (8.5-10.1) Review of Systems Review of Systems: No bleeding No bruising Assessment and Plan Assessmemt and Plan Problems Medical Problems: (1) Dyspnea Status: Acute (2) Exertional dyspnea Status: Acute (3) Person under investigation for COVID-19 Status: Acute (4) Uncontrolled hypertension Status: Acute Resume home medications FEN - Cardiac diet PPX - warfarin FULL CODE Dispo - inpatient for above Patient names her daughter (Abbi Covarrubias) as surrogate decision-maker 1) Continue DVT prophylaxis 2) Full Code 3) Cardiac Diet 4) Continue Respiratory Isolation 5) Home Medications Comment Review of Relevant I have reviewed the following items jamari (where applicable) has been applied. Medications: Current Medications Medications (Trade) Dose Ordered Sig/Rosa Route PRN Reason Start Time Stop Time Status Last Admin Dose Admin Warfarin Sodium (Coumadin) 4 mg 1X WARF ONCE PO 03/28/21 16:00 03/28/21 16:01 DC 03/28/21 15:18 Hydralazine HCl (Apresoline) 75 mg BID PO 03/28/21 21:00 03/29/21 09:11 Hydralazine HCl (Apresoline) 25 mg 1X ONCE PO 03/28/21 14:30 03/28/21 14:31 DC 03/28/21 15:17 Magnesium Sulfate 50 ml @ 25 mls/hr 1X ONCE IV 03/28/21 14:30 03/28/21 16:29 DC 03/28/21 15:18 Potassium Chloride (Klor-Con) 10 meq [id number] PO 03/28/21 14:30 03/29/21 09:12 Justifications for Admission Other Justification BHANU AGOSTO III DO Mar 29, 2021 12:34
[2021-03-29 14:49] VITALS: BP 190/77
--- NOTE | 2021-03-29 15:42 | NUR ---
Pharmacy Warfarin Dosing Note S: Pharmacy consulted to assist with anticoagulation therapy O: BUSTER ODOM is a 70 year old F with Atrial Fibrillation LABS: Last INR: 1.5 Last HGB: 12.6 Last HCT: 38 Last PLT: 193 Last dose of 4 mg given on 03/28/21 at 1518 Vitamin K given: N Ongoing Drug Interactions: . A:INR of 1.5 is below desired range. Target range for this patient is: 2 -3 P: Warfarin dose: 5 mg Today at 1600 Bridge Therapy: None Next INR due tomorrow Pharmacy anticoagulation service will continue to follow. Belinda Christiansen RPH, 03/29/21 [id number]
[2021-03-29] MEDS ORDERED: WARFARIN 5 MG TABLET. PO ONE (16:00)
[2021-03-29 19:00] VITALS: BP 180/84
[2021-03-29] MEDS: ATORVASTATIN CALCIUM 20 MG TABLET PO SCH (21:17)
[2021-03-29 23:39] VITALS: BP 139/73
[2021-03-30] VITALS (8 sets, daily range): BP systolic 148–184; BP diastolic 73–98
[2021-03-30] MEDS: hydrALAZINE 20 MG/ML VIAL. IVP PRN ×2 (04:13→12:46)
[2021-03-30] MEDS: HYDROcodone/APAP 5/325MG 1 TAB TABLET PO PRN (04:21)
[2021-03-30] MEDS: methylPREDNISolone SOD SUCC PF 40 MG/ML VIAL. IV SCH (08:16)
[2021-03-30] MEDS: cefTRIAXone IV Push 1 GM VIAL. IVP SCH (08:16)
[2021-03-30] MEDS: hydrALAZINE 25 MG TABLET PO SCH ×2 (08:17→14:26)
[2021-03-30] MEDS: POTASSIUM CHLORIDE 10 MEQ TABLET.ER. PO SCH (08:17)
[2021-03-30] MEDS: METOPROLOL TART IMMED RELEASE 25 MG TABLET. PO SCH (08:18)
[2021-03-30] MEDS: LOSARTAN POTASSIUM 50 MG TABLET. PO SCH (08:18)
[2021-03-30] MEDS: FUROSEMIDE 20 MG TABLET PO SCH (08:19)
[2021-03-30] MEDS: LACTOBACILLUS RHAMNOSUS GG 1 CAPSULE. PO SCH (08:19)
[2021-03-30] MEDS: DOXYCYCLINE HYCLATE 100 MG TABLET PO SCH (08:19)
--- NOTE | 2021-03-30 10:46 | PDOC ---
[employer] PROGRESS NOTE Date of Service DOS: DATE: 03/30/21 TIME: 10:43 Chief Complaint Chief Complaint COVID-19 Hypertensive Urgency Pulmonary Edema History of Present Illness History of Present Illness Ms Acharya 70-year-old female with past medical history hypertension, CAD with stent, PVD, atrial fibrillation, who presents to the ED with complaints of worsening shortness of breath over the past 2 days. States her symptoms are worse with exertion, with associated headache, lightheadedness, and orthopnea. States she has not taken her home blood pressure medications over the past few days because she has not felt well. She went was seen in urgent clinic for her symptoms, but subsequently referred to the ER. On arrival in the ER her blood pressure was significant elevated at 200/98 mmHg. Labs on admission showed sodium 135, potassium 3.2, INR 2.5, troponin <0.017, BNP 3282. Chest x-ray showed ill-defined bilateral lung infiltrates. She was treated with Rocephin and azithromycin. Will admit patient for further medical management. Afebrile. CRP elevated. Continue on Rocephin and doxycycline. She symptomatically improved. Creatinine increased to 1.3 and potassium to 3. Would hold HCTZ, cont furosemide. Cont empiric antibiotics for pneumonia 03/26 Patient was seen and examined today. We discussed the patient's disposition with nurse and reviewed patient's chart. Patient is currently on 3 mg Magnesium. 03/27: Ms. Acharya was seen and examined in her room this morning. We discussed with the nurse the patient's disposition and reviewed her chart. After reviewing her Potassium labs, we will administer Potassium Chloride 40mg PO x 1 and review labs. 03/28: Ms. Acharya was examined in her room today. She was sitting up and eating her breakfast this morning and overall appeared much better. We discussed her current disposition and reviewed her chart. 03/29: The patient was seen and examined in her room today. This morning, she was sitting up and eating her breakfast and continues to improve. We discussed her chart and current disposition with her nurse. 03/30: Ms. Acharya was seen and evaluated in her room today. This morning, she was again sitting up and eating her breakfast, and was talking on her phone. Overall, she seems very well and her energy is great. We discussed her chart and current disposition with her nurse. We will proceed with discharge today. Vitals/I&O Vitals/I&O: Vital Signs Date Time Temp Pulse Resp B/P (MAP) Pulse Ox O2 Delivery O2 Flow Rate FiO2 03/30/21 08:18 71 148/76 03/30/21 07:00 97.9 17 100 Nasal Cannula 2.0 97.9 I & O 03/29/21 03/29/21 03/30/21 15:00 23:00 07:00 Intake Total 200 ml 360 ml Balance 200 ml 360 ml Physical Exam General: Alert, Cooperative Heart: Regular rate, No murmurs, Other (Irregular) Abdomen: Normal bowel sounds, Soft Extremities: No clubbing, No cyanosis Skin: No rashes, No breakdown Labs Labs: Laboratory Tests Test 03/30/21 08:06 Glucose (Fingerstick) 118 mg/dL (70-99) Review of Systems Review of Systems: No bleeding No rashes Assessment and Plan Assessmemt and Plan Problems Medical Problems: (1) Dyspnea Status: Acute (2) Exertional dyspnea Status: Acute (3) Person under investigation for COVID-19 Status: Acute (4) Uncontrolled hypertension Status: Acute Resume home medications FEN - Cardiac diet PPX - warfarin FULL CODE Dispo - inpatient for above Patient names her daughter (Abbi Covarrubias) as surrogate decision-maker 1) Full Code 2) Continue DVT Prophylaxis 3) Cardiac Diet 4) Continue Respiratory Isolation 5) Home Medications 6) Discharge/Disposition Pending Comment Review of Relevant I have reviewed the following items jamari (where applicable) has been applied. Medications: Current Medications Medications (Trade) Dose Ordered Sig/Rosa Route PRN Reason Start Time Stop Time Status Last Admin Dose Admin Warfarin Sodium (Coumadin) 5 mg 1X WARF ONCE PO 03/29/21 16:00 03/29/21 16:01 DC 03/29/21 18:14 Hydralazine HCl (Apresoline) 75 mg TID PO 03/29/21 21:00 03/30/21 08:17 Amlodipine Besylate (Norvasc) 5 mg DAILY PO 03/29/21 15:45 03/30/21 08:18 Justifications for Admission Other Justification BHANU AGOSTO III DO Mar 30, 2021 10:46
[2021-03-30 11:58] LABS: PROTHROMBIN TIME PATIENT 19.5 SEC (11.7-14.0)
[2021-03-30] MEDS ORDERED: Warfarin Per Pharmacy MC (12:02)
[2021-03-30] MEDS ORDERED: HYDR-2868 PO ×2 (12:02→12:09)
[2021-03-30] MEDS ORDERED: AMLO-186 PO (12:02)
[2021-03-30] MEDS ORDERED: HYDR-2761 PO (12:02)
--- NOTE | 2021-03-30 12:10 | SNU/HH DC ---
DISCHARGE WITH HOME HEALTH DISCHARGE INFORMATION: Final Diagnosis: Problems Medical Problems: (1) Dyspnea Status: Acute (2) Exertional dyspnea Status: Acute (3) Person under investigation for COVID-19 Status: Acute (4) Uncontrolled hypertension Status: Acute Condition on Discharge: Stable CODE STATUS: Code Status: Full HOME HEALTH: Face to Face: I certify this patient is under my care and that I, or a nurse practitioner or physician's construction assistant working with me, had a face to face encounter that meets the physician face to face encounter requirements with this patient on []. Medical Complications: Other Longterm For: Assess & Educate Safety (Recent COVID-19) RN For Eval/Treatment: Yes Physical Therapy For: Evalulation/Treatment Occupational Therapy For: Evaluation/Treatment Home Health Aide For: Self-care VOCATIONAL EVALUATOR For: Community Resources Pt Meets Homebound Status: Poor coordination w/ amb. POST DISCHARGE ORDERS: Activity Instructions for Disc: Activity as tolerated, Avoid exertion, Progressive ambulation Weight Bearing Status after Di: No restrictions DIET AFTER DISCHARGE: Cardiac Wound/Incision Care: Ice to area for comfort, Keep wound/cast CDI CHECKS AFTER DISCHARGE: Checks after discharge: Check blood press - daily TREATMENT/EQUIPMENT ORDERS: Adaptive Equipment Issued: Walker CERTIFICATION STATEMENT: Certification Statement: Certification Statement: Based on the above finding, I certify that this patient is confined to the home and needs intermittent prison care, physical therapy and/or speech therapy, or continues to need occupational therapy.~ This patient is under my care, and I have initiated the establishment of the plan of care.~ This patient will be followed by myself or a community physician who will periodically review the plan of care. Home Meds Active Scripts Hydralazine Hcl (HYDRALAZINE HCL) 25 Mg Tablet, 75 TAB PO TID for BLOOD PRESSURE CONTROL for 60 Days, #180 TAB 3 Refills Prov:CASTLE,NIAL K III DO 03/30/21 Amlodipine Besylate (AMLODIPINE BESYLATE) 5 Mg Tablet, 5 MG PO DAILY for . for 30 Days, #30 TAB Prov:CASTLE,NIAL K III DO 03/30/21 [Warfarin Per Pharmacy] 5 No Conflict Check, 1 EACH [facility] PRN DAILY PRN for SEE COMMENTS for 14 Days, #14 Prov:CASTLE,NIAL K III DO 03/30/21 Hydrocodone Bit/Acetaminophen (HYDROCODONE-APAP 5-325 ) 1 Tab Tablet, 1 TAB PO PRN Q4HRS PRN for MODERATE-SEVERE PAIN for 10 Days, #20 TAB Prov:BHANU AGOSTO III DO 03/30/21 Hydrocodone/Apap 5-325 (NORCO 5-325 TABLET) 1 Each Tablet, 0.5-1 TAB PO PRN Q6HRS PRN for PAIN, #10 TAB 0 Refills Prov:ENRIQUETA HICKS DO 02/01/19 Orphenadrine Citrate (ORPHENADRINE CITRATE) 100 Mg Tablet.er, 1 TAB PO BID, #20 TAB Prov:ENRIQUETA HICKS DO 02/01/19 Prednisone (PREDNISONE) 20 Mg Tablet, 2 TAB PO DAILY, #8 TAB Prov:ENRIQUETA HICKS DO 02/01/19 Reported Medications Warfarin Sodium (COUMADIN) 3 Mg Tablet, 1 TAB PO DAILY for blood thinner, #30 TAB 07/16/18 Atorvastatin Calcium (ATORVASTATIN CALCIUM) 20 Mg Tablet, 1 TAB PO DAILY, #30 TAB 5 Refills 11/15/16 Metoprolol Tartrate (METOPROLOL TARTRATE) 25 Mg Tablet, 1 TAB PO BID, #180 TAB 1 Refill 11/15/16 Discontinued Reported Medications Amlodipine Besylate (AMLODIPINE BESYLATE) 10 Mg Tablet, 10 MG PO DAILY for BLOOD PRESSURE CONTROL, TAB 06/24/18 Tramadol Hcl (TRAMADOL HCL) 50 Mg Tablet, 50 MG PO DAILY PRN for PAIN, TAB 06/24/18 Valsartan/Hydrochlorothiazide (DIOVAN HCT 320-25 MG TABLET) 1 Each Tablet, 1 TAB PO DAILY, #30 TAB 5 Refills 11/15/16 BHANU AGOSTO III DO Mar 30, 2021 12:10
--- NOTE | 2021-03-30 12:51 | DS ---
DATE OF DISCHARGE: 03/30/2021 ADMISSION DIAGNOSES: COVID-19 respiratory failure, hypertensive urgency, AFib, anemia, acute kidney injury. DISCHARGE DIAGNOSES: Resolving COVID-19, history of hypertension, arthritis, chronic anticoagulation, persistent AFib, resolving hypertensive urgency, chronic anemia, resolving acute kidney injury. CONSULTS: Cardiology. PROCEDURES: None. HOSPITAL COURSE: The patient is a pleasant, older female, who presented with COVID-19 respiratory failure. The patient was admitted. We gave her COVID protocol. We did not have to give her remdesivir, but we did give her steroids, antibiotics, vitamins, minerals, beta agonist, cough syrup with codeine and aspirin. We consulted Cardiology. Over the past several days, she has returned to her baseline. I saw and examined her this morning. She wants to go home. We plan to discharge to home with close outpatient followup. DISPOSITION: Home. ACTIVITY: As tolerated. DIET: Low sodium. MEDICATIONS: Please see the MRAD. They are Medrol Dosepak, Z-LUIGI, hydrochlorothiazide 25 a day, amlodipine 10 a day, atorvastatin 20 a day, hydralazine 25 mg b.i.d., p.r.n. hydrocodone, metoprolol 25 b.i.d., Ultram 50 q.6 hours, Diovan and Coumadin. TOTAL TIME: [address]: ANGELICA/zina TID: [id number]
--- NOTE | 2021-03-30 12:52 | NUR ---
SW following. Discussed with RN, pt no longer requiring oxygen. Discharge order for home with self care. RN advised no SW needs.
[2021-03-30] MEDS ORDERED: AMLO-187 PO (13:14)
--- NOTE | 2021-03-30 13:49 | NUR ---
Pharmacy Warfarin Dosing Note S: Pharmacy consulted to assist with anticoagulation therapy O: BUSTER ODOM is a 70 year old F with Atrial Fibrillation LABS: Last INR: 1.7 Last HGB: 12.6 Last HCT: 38 Last PLT: 193 Last dose of 5 mg given on 03/29/21 at 1814 Vitamin K given: N Ongoing Drug Interactions: A:INR of 1.7 is below desired range. Target range for this patient is: 2 -3 P: Warfarin dose: 5 mg Today prior to D/C Bridge Therapy: None Next INR due per MD orders Pharmacy anticoagulation service will continue to follow. Belinda Christiansen RPH, 03/30/21 [id number]
[2021-03-30] MEDS ORDERED: WARFARIN 5 MG TABLET. PO ONE (15:00)
[2021-03-30] MEDS ORDERED: HYDR100T24 PO (16:43)
[2021-03-30] MEDS ORDERED: LOSA100T14 PO (16:43)
--- NOTE | 2021-03-30 18:30 | NUR ---
Discharge Note: Patient was discharged home with self care. Patients IV was discontinued per RN, without any complications. Spoke with Dr. Aguayo about patients blood pressure still being elevated. Dr. Aguayo increased hydralazine to 100 TID and was okay with patient discharging. Patient was advised to check her blood pressure periodically throughout the day at home and write it down and take it to her primary or cardiology appointment. Patients prescriptions were called into patients preferred pharmacy. Patient was given discharge summary/instructions, follow-ups and educational material. Patient did not have any further questions or concerns. Patient was taken down to the main entrance via wheelchair with all personal belongings, accompanied by MICHAEL Warren, where patients family was waiting for her to take her home.
== END 2021-03-30 18:30 | disposition home or self-care (01) | DRG 177 ==
LOC: ER 12:18 → ED HOLD 15:54 → 5 NORTH 20:45
PROVIDERS: ADMIT Family Medicine; ATTEND Family Medicine
DX: U07.1 COVID-19 (principal); J12.82 Pneumonia due to coronavirus disease 2019; J96.00 Acute respiratory failure, unspecified whether with hypoxia or hypercapnia; I48.19 Other persistent atrial fibrillation; I50.30 Unspecified diastolic (congestive) heart failure; N17.9 Acute kidney failure, unspecified; D64.9 Anemia, unspecified; E78.5 Hyperlipidemia, unspecified; E83.42 Hypomagnesemia; E87.6 Hypokalemia; F17.210 Nicotine dependence, cigarettes, uncomplicated; I11.0 Hypertensive heart disease with heart failure; I16.0 Hypertensive urgency; I25.10 Atherosclerotic heart disease of native coronary artery without angina pectoris; I73.9 Peripheral vascular disease, unspecified; Z78.9 Other specified health status; Z82.49 Family history of ischemic heart disease and other diseases of the circulatory system; Z90.710 Acquired absence of both cervix and uterus; Z91.14 Patient's other noncompliance with medication regimen; Z95.5 Presence of coronary angioplasty implant and graft; Z96.659 Presence of unspecified artificial knee joint; Z98.62 Peripheral vascular angioplasty status; M19.90 Unspecified osteoarthritis, unspecified site; Z79.01 Long term (current) use of anticoagulants
CPT/HCPCS: 36415; 71045; 71275; 80048; 80076; 82550; 82962; 83735; 83880; 84145; 84484; 85025; 85610; 85730; 86140; 87426; 87804; 93005; 96365; 96366; 96375; J0360; J0456; J0696; J1885; J1940; J2405; J2920; J3475; Q9967; U0003; U0005; 99285-25; G0378

== ENCOUNTER → 2021-04-24 | Outpatient (CLI) | payer MEDICARE ==
[2021-03-30 16:30] VITALS: BP 180/89
[~2021-04-24] MED LIST changes: +AMLO-186 PO; +DOXY100T PO; +FURO-68 PO; +HYDR-2761 PO; +HYDR100T24 PO; +LOSA100T14 PO; +Nicotine 7MG TD; -POTASSIUM CHLORIDE 20 MEQ TABLET.ER. PO ONE; +Warfarin Per Pharmacy MC
--- NOTE | 2021-04-24 17:18 | CARD ---
MR#: [id number] Date of Study: 04/24/2021 Ordering Physician: WEI MABRY, Referring Physician: WEI MABRY, Tech: James Fuller [facility] APPROVED REPORT EXAM: Two-dimensional and M-mode echocardiogram with Doppler and color Doppler. INDICATION Atrial Fibrillation Cardiac Disease: CAD RISK FACTORS Hypertension Obesity Hyperlipidemia 2D DIMENSIONS Left Atrium(2D)4.9 (1.6-4.0cm)IVSd1.2 (0.7-1.1cm) Aortic Root(2D)3.0 (2.0-3.7cm)LVDd4.5 (3.9-5.9cm) LVOT Diameter1.8 (1.8-2.4cm)PWd1.3 (0.7-1.1cm) LVDs3.2 (2.5-4.0cm)FS (%) 28.4 % SV50.2 mlLVEF(%)55.0 (>50%) Aortic Valve AoV Peak Malachi.200.1cm/sAoV VTI34.7cm AO Peak GR.16.0mmHgLVOT Peak Malachi.108.0cm/s AO Mean GR.7mmHgAVA (VMAX)1.40cm2 AI P 1/2 [id number] Mitral Valve MV E Peak Gr.9mmHgMV E Mean Gr.4mmHg Pulmonary Valve PV Peak Qpplvzap67.1cm/s Tricuspid Valve TR P. Jimsjrye168xw/sTR Peak Gr.42mmHg Pulmonary Vein S1 Ragwhrny45.0cm/sD2 Xfasqqwc79.3cm/s LEFT VENTRICLE The left ventricle is normal size. There is borderline to mild concentric left ventricular hypertroph y. The left ventricular systolic function is normal. The Ejection Fraction is 55-60% There is normal LV segmental wall motion. Diastolic function unable to be assessed due to atrial fibrillation. No lef t ventricle thrombus noted on this study. There is no ventricular septal defect visualized. There is no left ventricular aneurysm. There is no mass noted in the left ventricle. RIGHT VENTRICLE The right ventricle is normal size. There is normal right ventricular wall thickness. The right ventr icular systolic function is normal. ATRIA The left atrium is moderately dilated. The right atrium size is normal. The interatrial septum is int act with no evidence for an atrial septal defect or patent foramen ovale as noted on 2-D or Doppler i maging. AORTIC VALVE The aortic valve is calcified but opens well. Doppler and Color Flow revealed moderate aortic regurgi tation. There is no significant aortic valvular stenosis. There is no aortic valvular vegetation. MITRAL VALVE There is no evidence of mitral valve prolapse. There is no mitral valve stenosis. Doppler and Color-f low revealed moderate mitral regurgitation. TRICUSPID VALVE The tricuspid valve is normal in structure and function. Doppler and Color Flow revealed mild tricusp id regurgitation. The PA pressure was estimated at 50 mmHg. There is no tricuspid valve prolapse or v egetation. There is no tricuspid valve stenosis. PULMONIC VALVE The pulmonary valve is normal in structure and function. There is mild pulmonic regurgitation. There is no pulmonic valvular stenosis. GREAT VESSELS The aortic root is normal in size. The ascending aorta is normal in size. The pulmonary artery is nor mal. The IVC is normal in size and collapses >50% with inspiration. PERICARDIAL EFFUSION There is no pleural effusion. There is no evidence of significant pericardial effusion. Critical Notification Critical Value: No <Conclusion> The left ventricular systolic function is normal. The Ejection Fraction is 55-60% There is normal LV segmental wall motion. Moderate aortic regurgitation. Moderate mitral regurgitation. Mild tricuspid regurgitation. The PA pressure was estimated at 50 mmHg. There is no evidence of significant pericardial effusion. Signed by : Landry Fierro, Electronically Approved : 04/24/2021 17:17:32
== END ==
LOC: ECHO 14:52
PROVIDERS: ATTEND Internal Medicine Cardiovascular Disease
DX: I08.8 Other rheumatic multiple valve diseases (principal); I48.91 Unspecified atrial fibrillation; I25.10 Atherosclerotic heart disease of native coronary artery without angina pectoris
CPT/HCPCS: 93306

== ENCOUNTER 2021-04-27 23:16 | Observation (INO) | payer MEDICARE ==
[~2021-04-27] VITALS: Ht 162.6 cm; Wt 85.0 kg
[~2021-04-27 23:16] MED LIST changes: -DOXY100T PO; -FURO-68 PO; -Nicotine 7MG TD
[2021-04-28 00:09] LABS: BASO # 0.1 x10^3/uL (0.0-0.2); BASO % 1 % (0-3); EOS # 0.1 x10^3/uL (0.0-0.7); EOS % 2 % (0-3); HEMATOCRIT 35.7 % (36.0-47.0); HEMOGLOBIN 11.5 g/dL (12.0-15.5); LYMPH # 1.6 x10^3/uL (1.0-4.8); LYMPH % 24 % (24-48); MEAN CORPUSCULAR HEMOGLOBIN 28 pg (25-35); MEAN CORPUSCULAR HGB CONC 32 g/dL (31-37); MEAN CORPUSCULAR VOLUME 87 fL (79-100); MONO # 0.7 x10^3/uL (0.0-1.1); MONO % 11 % (0-9); NEUT # 4.3 x10^3/uL (1.8-7.7); NEUT % 62 % (31-73); PLATELET COUNT 284 x10^3/uL (140-400); RED BLOOD COUNT 4.09 x10^6/uL (3.50-5.40); RED CELL DISTRIBUTION WIDTH 16.4 % (11.5-14.5); WHITE BLOOD COUNT 6.8 x10^3/uL (4.0-11.0)
[2021-04-28] MEDS ORDERED: DEXAMETHASONE SOD PHOS 4 MG/ML VIAL IVP ONE (01:00)
--- NOTE | 2021-04-28 01:08 | RAD ---
EXAM: CHEST ONE VIEW. HISTORY: Shortness of breath. COMPARISON: 03/24/2021. FINDINGS: A frontal view of the chest is obtained. Diffuse interstitial and airspace infiltrates are focally more consolidated in the left midlung. Ther e is no pneumothorax or clear pleural effusion. The heart is moderately enlarged. There are atheroscl erotic calcifications of the aorta. IMPRESSION: 1. Bilateral diffuse infiltrates consistent with diffuse pneumonia or moderate pulmonary edema. 2. Moderate cardiomegaly. Electronically signed by: Marcus Torres MD (04/28/2021 1:06 AM) [facility]
[2021-04-28 01:21] LABS: CALCIUM 9.1 mg/dL (8.5-10.1); GFR 66.3; POTASSIUM 3.2 mmol/L (3.5-5.1)
[2021-04-28 01:27] LABS: ALBUMIN 3.2 g/dL (3.4-5.0); ALBUMIN/GLOBULIN RATIO 0.8 (1.0-1.7); TOTAL BILIRUBIN 0.8 mg/dL (0.2-1.0)
--- NOTE | 2021-04-28 01:38 | PHYS DOC ---
Past Medical History Past Medical History: Heart Disease, Hypertension Past Surgical History: Hysterectomy, Other Additional Past Surgical Histo: Total R hip, 2 stents R groin, 1 stent L groin, 2 cardiac stents, L breast Smoking Status: Current Every Day Smoker Alcohol Use: None Drug Use: None General Adult EDM: Chief Complaint: SHORTNESS OF BREATH HPI: HPI: Patient is a 70 year old male presents with a chief complaint of shortness of breath. Patient states shortness of breath started yesterday. She has a cough with sputum production. Patient states she has chills but denies any fevers. Patient states she feels like she did when she was diagnosed with COVID-19. Patient has no complaints of chest pain. Patient is requiring supplemental oxyge-- O2 saturation is 91% on 2 L nasal cannula. She is afebrile. Review of Systems: Review of Systems: Review of systems: Constitutional symptoms- No fever, no chills. Eyes- No Discharge, No Visual Loss Respiratory symptoms- Positive shortness of breath, No wheezing, No Dyspnea on Exertion Cardiovascular Systems; No chest pain, No Palpitations, No syncope Gastrointestinal symptoms: NO abdominal pain, no nausea, no vomiting or diarrhea. Genitourinary symptoms: No dysuria. Musculoskeletal symptoms: No back pain No extremity pain. NEUROLOGICAL Symptoms: No headache, no generalized weakness; No focal Weakness Skin: No rash. Heart Score: C/O Chest Pain: N/A Risk Factors: Risk Factors: DM, Current or recent (<one month) smoker, HTN, HLP, family history of CAD, obesity. Risk Scores: Score 0 - 3: 2.5% MACE over next 6 weeks - Discharge Home Score 4 - 6: 20.3% MACE over next 6 weeks - Admit for Clinical Observation Score 7 - 10: 72.7% MACE over next 6 weeks - Early Invasive Strategies Current Medications: Current Medications Medications (Trade) Dose Ordered Sig/Rosa Start Time Stop Time Status Last Admin Dose Admin Dexamethasone Sodium Phosphate (Decadron) 10 mg 1X ONCE 04/28/21 01:00 04/28/21 01:01 DC 04/28/21 00:48 10 MG Allergies: Allergies: Allergies Coded Allergies Type Severity Reaction Last Updated Verified No Known Drug Allergies 07/13/18 No Physical Exam: PE: General: alert, no acute distress. Skin: warm, dry and intact, no erythema, no rash. HENT: bilateral external ears normal, oropharynx moist, nose normal. Head:: Normocephalic, atraumatic. Neck: Trachea midline. Eyes: EOMI, Normal conjunctiva, No drainage CARDIOVASCULAR: Regular rate and rhythm RESPIRATORY: No respiratory distress Back: Full range of motion. MUSCULOSKELETAL: Full range of motion of bilateral upper and lower extremities. GASTROINTESTINAL: Abdomen soft without rebound or guarding. NEUROLOGICAL: Alert and noted to person, place and time. No neurological deficits observed Psychiatric: Cooperative. Normal judgment Current Patient Data: Labs: Laboratory Tests Test 04/27/21 23:50 04/28/21 00:45 04/28/21 00:50 White Blood Count 6.8 x10^3/uL (4.0-11.0) Red Blood Count 4.09 x10^6/uL (3.50-5.40) Hemoglobin 11.5 g/dL (12.0-15.5) L Hematocrit 35.7 % (36.0-47.0) L Mean Corpuscular Volume 87 fL (79-100) Mean Corpuscular Hemoglobin 28 pg (25-35) Mean Corpuscular Hemoglobin Concent 32 g/dL (31-37) Red Cell Distribution Width 16.4 % (11.5-14.5) H Platelet Count 284 x10^3/uL (140-400) Neutrophils (%) (Auto) 62 % (31-73) Lymphocytes (%) (Auto) 24 % (24-48) Monocytes (%) (Auto) 11 % (0-9) H Eosinophils (%) (Auto) 2 % (0-3) Basophils (%) (Auto) 1 % (0-3) Neutrophils # (Auto) 4.3 x10^3/uL (1.8-7.7) Lymphocytes # (Auto) 1.6 x10^3/uL (1.0-4.8) Monocytes # (Auto) 0.7 x10^3/uL (0.0-1.1) Eosinophils # (Auto) 0.1 x10^3/uL (0.0-0.7) Basophils # (Auto) 0.1 x10^3/uL (0.0-0.2) SARS-CoV-2 Antigen (Rapid) Negative (NEGATIVE) Sodium Level 141 mmol/L (136-145) Potassium Level 3.2 mmol/L (3.5-5.1) L Chloride Level 107 mmol/L (98-107) Carbon Dioxide Level 23 mmol/L (21-32) Anion Gap 11 (6-14) Blood Urea Nitrogen 18 mg/dL (7-20) Creatinine 1.0 mg/dL (0.6-1.0) Estimated GFR (Cockcroft-Gault) 66.3 BUN/Creatinine Ratio 18 (6-20) Glucose Level 109 mg/dL (70-99) H Calcium Level 9.1 mg/dL (8.5-10.1) Total Bilirubin 0.8 mg/dL (0.2-1.0) Aspartate Amino Transferase (AST) 17 U/L (15-37) Alanine Aminotransferase (ALT) 27 U/L (14-59) Alkaline Phosphatase 112 U/L (46-116) Troponin I Quantitative < 0.017 ng/mL (0.000-0.055) NW-Imv-H-Type Natriuretic Peptide 1645 pg/mL (0-124) H Total Protein 7.0 g/dL (6.4-8.2) Albumin 3.2 g/dL (3.4-5.0) L Albumin/Globulin Ratio 0.8 (1.0-1.7) L Laboratory Tests 04/27/21 23:50 Laboratory Tests 04/28/21 00:50 Vital Signs: Vital Signs Date Time Temp Pulse Resp B/P (MAP) Pulse Ox O2 Delivery O2 Flow Rate FiO2 04/27/21 23:25 98.1 85 18 145/67 (93) Room Air 98.1 EKG: EKG: [] Radiology/Procedures: Radiology/Procedures: [] Impression: Diffuse interstitial and airspace infiltrates are focally more consolidated in the left midlung. There is no pneumothorax or clear pleural effusion. The heart is moderately enlarged. There are atherosclerotic calcifications of the aorta. IMPRESSION: 1. Bilateral diffuse infiltrates consistent with diffuse pneumonia or moderate pulmonary edema. 2. Moderate cardiomegaly. Course & Med Decision Making: Course & Med Decision Making Pertinent Labs and Imaging studies reviewed. (See chart for details) [] Dragon Disclaimer: Dragon Disclaimer: This electronic medical record was generated, in whole or in part, using a voice recognition dictation system. Departure Departure Impression: Primary Impression: Dyspnea Additional Impressions: Person under investigation for COVID-19 Elevated brain natriuretic peptide (BNP) level Hypoxia Disposition: 09 ADMITTED INPATIENT Condition: STABLE Referrals: SANDRA HOLLINGSWORTH MD (PCP) KAYLA GATES DO Apr 28, 2021 01:38
[2021-04-28] MEDS ORDERED: FUROSEMIDE 40 MG/4 ML VIAL. IVP ONE (02:00)
[2021-04-28 03:30] VITALS: BP 139/68
[2021-04-28] MEDS ORDERED: cefTRIAXone IV Push 1 GM VIAL. IVP ONE (03:30)
[2021-04-28] MEDS ORDERED: AZITHRMYCN 500MG IVPB FOR OMNI 250 ML IV ONE (03:30)
[2021-04-28] MEDS ORDERED: ACETAMINOPHEN 325 MG TABLET. PO PRN (04:30)
[2021-04-28 07:00] VITALS: BP 125/59
[2021-04-28] MEDS ORDERED: FLU VACC QUAD 21-22 (6MOS+) PF 0.5 ML SYRINGE. VAX IM ONE (09:00)
--- NOTE | 2021-04-28 09:09 | PDOC1 ---
History and Physical Date of Service: DOS: DATE: 04/28/21 TIME: 09:00 Chief Complaint: Chief Complain: Shortness of breath History of Present Illness: HPI: History obtained from discussion with the ED physician and chart review: 70-year-old female with past medical history of CAD, hypertension and a 14-[id number] smoking history who continues to smoke about half a pack per day. Patient states that she had a Covid test done last month but has not felt well since that time. She has had increased nonproductive cough. She also has been having worsening shortness of breath that started yesterday. She also does complain of some lower extremity edema. Denies any fevers, chest pain, abdominal pain, diarrhea, dysuria or hematuria or constipation. Past Medical/Surgical History: PMH/PSH: Past Medical History: CAD, Hypertension Past Surgical History: Hysterectomy, Total R hip, 2 stents R groin, 1 stent L groin, 2 cardiac stents, L breast Allergies: Allergies: Coded Allergies: No Known Drug Allergies (Unverified , 07/13/18) Family History: Family History: Hypertension in the family Social History: Social History: Smoking Status: Current Every Day Smoker Alcohol Use: None Drug Use: None Current Medications: Current Medications Current Medications Dexamethasone Sodium Phosphate (Decadron) 10 mg 1X ONCE IVP Last administered on 04/28/21at 00:48; Start 04/28/21 at 01:00; Stop 04/28/21 at 01:01; Status DC Furosemide (Lasix) 40 mg 1X ONCE IVP Last administered on 04/28/21at 03:11; Start 04/28/21 at 02:00; Stop 04/28/21 at 02:01; Status DC Ceftriaxone Sodium (Rocephin) 1 gm 1X ONCE IVP Last administered on 04/28/21at 05:37; Start 04/28/21 at 03:30; Stop 04/28/21 at 03:31; Status DC Azithromycin 250 ml @ 250 mls/hr 1X ONCE IV Last administered on 04/28/21at 05:37; Start 04/28/21 at 03:30; Stop 04/28/21 at 04:29; Status DC Acetaminophen (Tylenol) 650 mg PRN Q4HRS PRN PO MILD PAIN / TEMP > 100.3'F; Start 04/28/21 at 04:30 Influenza Virus Vaccine Quadrival (Flulaval Quad [id number] Syringe) 0.5 ml ONCE ONCE VAX IM Last administered on 04/28/21at 08:07; Start 04/28/21 at 09:00; Stop 04/28/21 at 09:01 Active Scripts Active Amlodipine Besylate 10 Mg Tablet 10 Mg PO DAILY 30 Days [Warfarin Per Pharmacy] 5 1 Each MC PRN DAILY PRN 14 Days Hydrocodone-Apap 5-325 (Hydrocodone Bit/Acetaminophen) 1 Tab Tablet 1 Tab PO PRN Q4HRS PRN 10 Days [place] 5-325 Tablet (Acetaminophen/Hydrocodone Bitart) 1 Each Tablet 0.5-1 Tab PO PRN Q6HRS PRN Orphenadrine Citrate 100 Mg Tablet.er 1 Tab PO BID Prednisone 20 Mg Tablet 2 Tab PO DAILY Reported Hydralazine Hcl 100 Mg Tablet 1 Tab PO TID Losartan Potassium 100 Mg Tablet 100 Mg PO DAILY Coumadin (Warfarin Sodium) 3 Mg Tablet 1 Tab PO DAILY Atorvastatin Calcium 20 Mg Tablet 1 Tab PO DAILY Metoprolol Tartrate 25 Mg Tablet 1 Tab PO BID ROS: Review of Systems Review of System REVIEW OF SYSTEMS: GENERAL: Denies weakness SKIN: No bruising, hair changes or rashes. EYES: No blurred, double or loss of vision. NOSE AND THROAT: No history of nosebleeds, hoarseness or sore throat. HEART: No history of palpitations, chest pain or shortness of breath on exertion. LUNGS: Denies cough, hemoptysis, wheezing or shortness of breath. GASTROINTESTINAL: Denies changes in appetite, nausea, vomiting, diarrhea or constipation. GENITOURINARY: No history of frequency, urgency, hesitancy or nocturia. NEUROLOGIC: Denies history of numbness, tingling, or tremor. PSYCHIATRIC: No history of panic, anxiety or depression. ENDOCRINE: No history of heat or cold intolerance, polyuria or polydipsia. EXTREMITIES: Denies joint pain, pain on walking or stiffness. Physical Exam: Vital Signs: Vital Signs Date Time Temp Pulse Resp B/P (MAP) Pulse Ox O2 Delivery O2 Flow Rate FiO2 04/28/21 07:00 98.2 84 18 125/59 (81) 100 Nasal Cannula 3.0 98.2 Physcial Exam: GEN: No apparent distress. Alert and oriented HEENT: Normal cephalic, atraumatic, external auditory canals are patent EYES: Extraocular muscles are intact, pupil are equally round and reactive to light and accommodation MUSCULOSKELETAL: Well developed , well nourished, good range of motion ENDOCRINE: No thyromegaly was palpated LYMPHATICS: No cervical chain or axillary nodes were noted HEMATOPOIETIC: No bruising NECK: Supple, no JVD, no thyromegaly was noted LUNGS: Clear to auscultation in all lung odonnell without rhonchi or wheezing HEART: RRR, S!, S2 present. Peripheral pulses intact, no obvious murmurs noted ABDOMEN: Soft, nontender. Positive bowel sounds, no organomegaly, normal bowel sounds EXTREMITIES: Without clubbing, cyanosis, or edema. Pedal pulses intact. Negative Homans sign NEUROLOGIC: Normal speech and tone. A&O x 3, moves all extremities, no obvious focal deficits PSYCHIATRIC: Normal affect, normal mood. Stable SKIN: No ulcerations or rashes, good skin turgor, no jaundice VASCULAR: Good capillary refill, neurovascular bundle appears to be intact Labs: Labs: Laboratory Tests Test 04/27/21 23:50 04/28/21 00:45 04/28/21 00:50 04/28/21 06:30 White Blood Count 6.8 x10^3/uL (4.0-11.0) Red Blood Count 4.09 x10^6/uL (3.50-5.40) Hemoglobin 11.5 g/dL (12.0-15.5) Hematocrit 35.7 % (36.0-47.0) Mean Corpuscular Volume 87 fL (79-100) Mean Corpuscular Hemoglobin 28 pg (25-35) Mean Corpuscular Hemoglobin Concent 32 g/dL (31-37) Red Cell Distribution Width 16.4 % (11.5-14.5) Platelet Count 284 x10^3/uL (140-400) Neutrophils (%) (Auto) 62 % (31-73) Lymphocytes (%) (Auto) 24 % (24-48) Monocytes (%) (Auto) 11 % (0-9) Eosinophils (%) (Auto) 2 % (0-3) Basophils (%) (Auto) 1 % (0-3) Neutrophils # (Auto) 4.3 x10^3/uL (1.8-7.7) Lymphocytes # (Auto) 1.6 x10^3/uL (1.0-4.8) Monocytes # (Auto) 0.7 x10^3/uL (0.0-1.1) Eosinophils # (Auto) 0.1 x10^3/uL (0.0-0.7) Basophils # (Auto) 0.1 x10^3/uL (0.0-0.2) SARS-CoV-2 RNA (ELIZABETH) Negative (Negative) SARS-CoV-2 Antigen (Rapid) Negative (NEGATIVE) Sodium Level 141 mmol/L (136-145) Potassium Level 3.2 mmol/L (3.5-5.1) Chloride Level 107 mmol/L (98-107) Carbon Dioxide Level 23 mmol/L (21-32) Anion Gap 11 (6-14) Blood Urea Nitrogen 18 mg/dL (7-20) Creatinine 1.0 mg/dL (0.6-1.0) Estimated GFR (Cockcroft-Gault) 66.3 BUN/Creatinine Ratio 18 (6-20) Glucose Level 109 mg/dL (70-99) Calcium Level 9.1 mg/dL (8.5-10.1) Total Bilirubin 0.8 mg/dL (0.2-1.0) Aspartate Amino Transf (AST/SGOT) 17 U/L (15-37) Alanine Aminotransferase (ALT/SGPT) 27 U/L (14-59) Alkaline Phosphatase 112 U/L (46-116) Troponin I Quantitative < 0.017 ng/mL (0.000-0.055) DA-Hil-Z-Type Natriuretic Peptide 1645 pg/mL (0-124) Total Protein 7.0 g/dL (6.4-8.2) Albumin 3.2 g/dL (3.4-5.0) Albumin/Globulin Ratio 0.8 (1.0-1.7) Lactic Acid Level 1.1 mmol/L (0.4-2.0) Laboratory Tests Test 04/27/21 23:50 04/28/21 00:45 04/28/21 00:50 04/28/21 06:30 White Blood Count 6.8 x10^3/uL (4.0-11.0) Red Blood Count 4.09 x10^6/uL (3.50-5.40) Hemoglobin 11.5 g/dL (12.0-15.5) Hematocrit 35.7 % (36.0-47.0) Mean Corpuscular Volume 87 fL (79-100) Mean Corpuscular Hemoglobin 28 pg (25-35) Mean Corpuscular Hemoglobin Concent 32 g/dL (31-37) Red Cell Distribution Width 16.4 % (11.5-14.5) Platelet Count 284 x10^3/uL (140-400) Neutrophils (%) (Auto) 62 % (31-73) Lymphocytes (%) (Auto) 24 % (24-48) Monocytes (%) (Auto) 11 % (0-9) Eosinophils (%) (Auto) 2 % (0-3) Basophils (%) (Auto) 1 % (0-3) Neutrophils # (Auto) 4.3 x10^3/uL (1.8-7.7) Lymphocytes # (Auto) 1.6 x10^3/uL (1.0-4.8) Monocytes # (Auto) 0.7 x10^3/uL (0.0-1.1) Eosinophils # (Auto) 0.1 x10^3/uL (0.0-0.7) Basophils # (Auto) 0.1 x10^3/uL (0.0-0.2) SARS-CoV-2 RNA (ELIZABETH) Negative (Negative) SARS-CoV-2 Antigen (Rapid) Negative (NEGATIVE) Sodium Level 141 mmol/L (136-145) Potassium Level 3.2 mmol/L (3.5-5.1) Chloride Level 107 mmol/L (98-107) Carbon Dioxide Level 23 mmol/L (21-32) Anion Gap 11 (6-14) Blood Urea Nitrogen 18 mg/dL (7-20) Creatinine 1.0 mg/dL (0.6-1.0) Estimated GFR (Cockcroft-Gault) 66.3 BUN/Creatinine Ratio 18 (6-20) Glucose Level 109 mg/dL (70-99) Calcium Level 9.1 mg/dL (8.5-10.1) Total Bilirubin 0.8 mg/dL (0.2-1.0) Aspartate Amino Transf (AST/SGOT) 17 U/L (15-37) Alanine Aminotransferase (ALT/SGPT) 27 U/L (14-59) Alkaline Phosphatase 112 U/L (46-116) Troponin I Quantitative < 0.017 ng/mL (0.000-0.055) NK-Roc-I-Type Natriuretic Peptide 1645 pg/mL (0-124) Total Protein 7.0 g/dL (6.4-8.2) Albumin 3.2 g/dL (3.4-5.0) Albumin/Globulin Ratio 0.8 (1.0-1.7) Lactic Acid Level 1.1 mmol/L (0.4-2.0) Images: Images PROCEDURE: CHEST AP ONLY IMPRESSION: 1. Bilateral diffuse infiltrates consistent with diffuse pneumonia or moderate pulmonary edema. 2. Moderate cardiomegaly. Assessment/Plan Assessment/Plan Acute hypoxic respiratory failure Bilateral pneumonia, possible gram-negative organisms Acute COPD exacerbation Elevated BNP, there is moderate cardiomegaly no signs of fluid overload likely due to chronic hypoxia Complication of COVID-19 infection History of atrial fibrillation on Coumadin History of CAD History of hypertension Moderate protein malnutrition History of PVD Tobacco use Admit to hospitalist for further management Continue empiric IV antibiotics O2 supplementation as needed to maintain O2 saturations between 88 to 92% Pulmonology consult Cardiology consult Pending MRSA and Legionella urine antigen Warfarin for DVT prophylaxis Protonix if on steroids GI prophylaxis ADA diet CODE STATUS full Discussed with RN and SW Disposition inpatient management as above DPOA: Daughter Smoking cessation: Total time spent was 12 minutes in face to face counseling. Patient has agreed to consider nicotine patches/gum or to start on Varnicline when discharged In addition to my E/M visit, advance care planning done with A total time of 20 minutes was spent from 9:00 to 920 face to face in discussion with the patient regarding their goals of care, CODE STATUS. Justifications for Admission Other Justification JOSE JUAN STOLL MD Apr 28, 2021 09:09
[2021-04-28] MEDS ORDERED: IPRATROPIUM BROMIDE 0.5 MG/2.5 ML NEBU. NEB ONE (09:15)
--- NOTE | 2021-04-28 09:39 | CONS ---
DATE OF CONSULTATION: 04/28/2021 REASON FOR CONSULTATION: I was asked to see this 70-year-old lady for acute respiratory failure. HISTORY OF PRESENT ILLNESS: She does have history of 31-[id number]-iilb smoking, continues to smoke about half a pack per day. She had COVID pneumonia last month, has not felt well since then. She has had increased cough. No sputum production. She has had increased shortness of breath and lower extremity edema. She felt cold, but has not had fever. PAST MEDICAL HISTORY: Coronary artery disease, atrial fibrillation, on Coumadin, diastolic CHF, hysterectomy, hypertension. ALLERGIES: No known drug allergies. MEDICATIONS: She was given Lasix, dexamethasone, Rocephin, azithromycin in the ER. SOCIAL HISTORY: History of [id number] smoking, continues to smoke half a pack per day. FAMILY HISTORY: Hypertension. REVIEW OF SYSTEMS: As mentioned above. She has snoring and excessive daytime sleepiness, wakes herself up with snorting. Has not had a sleep study. Other systems otherwise negative. PHYSICAL EXAMINATION: GENERAL: She is an overweight lady. VITAL SIGNS: Her O2 saturation on 3 liters of oxygen 97%, respiratory rate 18, heart rate 84, blood pressure 125/59, temperature 98.2. HEENT: Normocephalic, atraumatic. CARDIOVASCULAR: Irregularly irregular rhythm. CHEST: Inspection is normal. There is no accessory muscle use. ABDOMEN: Obese. EXTREMITIES: There is edema. SKIN: Chronic changes. NEUROLOGIC: Alert and oriented. She is not in distress. LABORATORY DATA: I reviewed the following lab data: Chest x-ray shows cardiomegaly, bilateral infiltrates. WBC 6.8, hemoglobin 11.5, platelet 284. Sodium 141, potassium 3.2, chloride 107, CO2 of 23, BUN 18, creatinine 1. Lactic acid 1.1. BNP 1645. Troponin less than 0.017. COVID-19 rapid testing and RNA negative. IMPRESSION: 1. Acute respiratory failure secondary to acute diastolic congestive heart failure. 2. Abnormal chest x-ray. 3. Acute diastolic congestive heart failure. 4. Atrial fibrillation, on Coumadin. 5. Smoker, suspect she has chronic obstructive pulmonary disease. 6. Obesity, snoring, excessive daytime sleepiness, suspect she has obstructive sleep apnea-hypopnea syndrome. 7. Recent COVID pneumonia. 8. Peripheral arterial disease. 9. Hypokalemia. PLAN AND RECOMMENDATIONS: 1. Titrate FiO2 to keep O2 saturation 92%. She would require 6-minute walk at discharge. 2. I had a long discussion with her regarding smoking cessation. I have advised her to stop smoking forever. 3. Keep intake less than output. Agree with Lasix. Monitor potassium and creatinine. 4. Replace potassium. 5. Start bronchodilator, Atrovent only. She has AFib. Avoid albuterol. 6. Continue Coumadin. Adjust dose per INR. 7. I have discussed obstructive sleep apnea-hypopnea syndrome, the importance of diagnosis and treatment, if untreated, increased cardiovascular and [employer] morbidity and mortality. I do recommend sleep study as an outpatient. 8. The findings and recommendations were discussed with the patient and RN. I have answered all of her questions. Thank you very much for allowing me to participate in care of this very nice lady. ALONSO DR: Cee TID: [id number]
--- NOTE | 2021-04-28 11:04 | EKG ---
[facility] [address] [place] [address] Test Date: 2021-04-28 Test Time: 00:19:03 Pat Name: BUSTER ODOM Department: Room: Gender: F Application Packager: : [id number] Requested By: KAYLA GATES Order Number: [id number] Reading MD: Measurements Intervals [place] Rate: 82 P: VA: QRS: 87 QRSD: 78 T: -26 QT: 370 QTc: 435 Interpretive Statements IRREGULAR RHYTHM, NO P-WAVE FOUND VENTRICULAR PREMATURE COMPLEX(ES) T ABNORMALITY IN INFERIOR LEADS ABNORMAL ECG RI6.02 No previous ECG available for comparison
[2021-04-28] MEDS ORDERED: WARFARIN PER PHARMACY MC PRN (11:15)
[2021-04-28 11:30] VITALS: BP 131/63
[2021-04-28] MEDS: LOSARTAN POTASSIUM 50 MG TABLET. PO SCH (12:25)
[2021-04-28] MEDS: METOPROLOL TART IMMED RELEASE 25 MG TABLET. PO SCH ×2 (12:26→21:13)
[2021-04-28] MEDS: IPRATROPIUM BROMIDE 0.5 MG/2.5 ML NEBU. NEB SCH ×3 (12:26→21:39)
[2021-04-28 12:48] LABS: PROTHROMBIN TIME PATIENT 27.4 SEC (11.7-14.0)
[2021-04-28] MEDS: NICOTINE 7MG PATCH. TD SCH (14:16)
--- NOTE | 2021-04-28 14:38 | PDOC2 ---
CONSULT Date of Consult Date of Consult DATE: 04/28/21 TIME: 14:32 Reason for Consult Reason for Consult: Respiratory failure, atrial fibrillation Referring Physician Referring Physician: Dr. Dykes Identification/Chief Complaint Chief Complaint Shortness of breath Source Source: Chart review, Patient History of Present Illness Reason for Visit: The patient is a 70-year-old female who was admitted through the emergency room for 1 day of increasing shortness of breath. Patient has a history of COPD, atrial fibrillation, coronary disease and peripheral vascular disease. Chest x- ray showed a by lateral diffuse infiltrate pneumonia versus pulmonary edema and moderate cardiomyopathy. The patient has a history of heavy tobacco abuse and continues to smoke. An MPI test on 07/01/2018 showed no evidence of cardiac ischemia or infarct and ejection fraction of greater than 60%. She has been treated with diuretics and point medications overnight and is feeling better. Past Medical History Cardiovascular: AFIB, CAD, HTN, Other (Peripheral vascular disease) Pulmonary: COPD, Pneumonia Past Surgical History Past Surgical History: Total hip replacement, Hysterectomy Family History Family History: Hypertension Social History <1 pack per day ALCOHOL: none Drugs: None Current Problem List Problem List Problems Medical Problems: (1) Dyspnea Status: Acute (2) Elevated brain natriuretic peptide (BNP) level Status: Acute (3) Hypoxia Status: Acute (4) Person under investigation for COVID-19 Status: Acute Current Medications Current Medications Current Medications Dexamethasone Sodium Phosphate (Decadron) 10 mg 1X ONCE IVP Last administered on 04/28/21at 00:48; Start 04/28/21 at 01:00; Stop 04/28/21 at 01:01; Status DC Furosemide (Lasix) 40 mg 1X ONCE IVP Last administered on 04/28/21at 03:11; Start 04/28/21 at 02:00; Stop 04/28/21 at 02:01; Status DC Ceftriaxone Sodium (Rocephin) 1 gm 1X ONCE IVP Last administered on 04/28/21at 05:37; Start 04/28/21 at 03:30; Stop 04/28/21 at 03:31; Status DC Azithromycin 250 ml @ 250 mls/hr 1X ONCE IV Last administered on 04/28/21at 05:37; Start 04/28/21 at 03:30; Stop 04/28/21 at 04:29; Status DC Acetaminophen (Tylenol) 650 mg PRN Q4HRS PRN PO MILD PAIN / TEMP > 100.3'F; Start 04/28/21 at 04:30 Influenza Virus Vaccine Quadrival (Flulaval Quad [id number] Syringe) 0.5 ml ONCE ONCE VAX IM Last administered on 04/28/21at 08:07; Start 04/28/21 at 09:00; Stop 04/28/21 at 09:01; Status DC Ipratropium [place] (Atrovent) 0.5 mg RTQID NEB Last administered on 04/28/21at 12:26; Start 04/28/21 at 12:00 Ipratropium [place] (Atrovent) 0.5 mg 1X ONCE NEB ; Start 04/28/21 at 09:15; Stop 04/28/21 at 09:16; Status DC Azithromycin 500 mg/Sodium Chloride 250 ml @ 250 mls/hr Q24H IV ; Start 04/29/21 at 09:00; Stop 04/30/21 at 08:59 Ceftriaxone Sodium (Rocephin) 1 gm Q24H IVP ; Start 04/29/21 at 09:00; Stop 04/30/21 at 08:59 Amlodipine Besylate (Norvasc) 10 mg DAILY PO Last administered on 04/28/21at 12:25; Start 04/28/21 at 12:00 Atorvastatin Calcium (Lipitor) 20 mg QHS PO ; Start 04/28/21 at 21:00 Metoprolol Tartrate (Lopressor) 25 mg BID PO Last administered on 04/28/21at 12:26; Start 04/28/21 at 12:00 Prednisone (Prednisone) 40 mg DAILY PO ; Start 04/29/21 at 09:00 Warfarin Sodium (Coumadin) 3 mg DAILY16 PO ; Start 04/28/21 at 16:00; Status UNV Losartan Potassium (Cozaar) 100 mg DAILY PO Last administered on 04/28/21at 12:25; Start 04/28/21 at 12:00 Non-Formulary Medication ([Warfarin Per Pharmacy] ) 1 each PRN DAILY PRN MC SEE COMMENTS; Start 04/28/21 at 11:15; Status UNV Warfarin Sodium (Coumadin Per Pharmacy) 1 each PRN DAILY PRN MC SEE COMMENTS; Start 04/28/21 at 11:30 Nicotine (Nicoderm Cq 7mg) 1 patch DAILY TD Last administered on 04/28/21at 14:16; Start 04/28/21 at 14:00 Active Scripts Active Amlodipine Besylate 10 Mg Tablet 10 Mg PO DAILY 30 Days [Warfarin Per Pharmacy] 5 1 Each MC PRN DAILY PRN 14 Days Hydrocodone-Apap 5-325 (Hydrocodone Bit/Acetaminophen) 1 Tab Tablet 1 Tab PO PRN Q4HRS PRN 10 Days [place] 5-325 Tablet (Acetaminophen/Hydrocodone Bitart) 1 Each Tablet 0.5-1 Tab PO PRN Q6HRS PRN Orphenadrine Citrate 100 Mg Tablet.er 1 Tab PO BID Prednisone 20 Mg Tablet 2 Tab PO DAILY Reported Hydralazine Hcl 100 Mg Tablet 1 Tab PO TID Losartan Potassium 100 Mg Tablet 100 Mg PO DAILY Coumadin (Warfarin Sodium) 3 Mg Tablet 1 Tab PO DAILY Atorvastatin Calcium 20 Mg Tablet 1 Tab PO DAILY Metoprolol Tartrate 25 Mg Tablet 1 Tab PO BID Allergies Allergies: Coded Allergies: No Known Drug Allergies (Unverified , 07/13/18) ROS General: YES: Fatigue Respiratory: YES: Shortness of breath, SOB with excertion Physical Exam General: mild distress Lungs: Other (Decreased breath sounds bilaterally) Heart: Other (Irregularly irregular) Abdomen: Normal bowel sounds Vitals VITALS Vital Signs Date Time Temp Pulse Resp B/P (MAP) Pulse Ox O2 Delivery O2 Flow Rate FiO2 04/28/21 12:29 100 04/28/21 12:26 89 131/63 04/28/21 11:30 98.9 20 Nasal Cannula 3.0 98.9 Labs Labs Laboratory Tests Test 04/27/21 23:50 04/28/21 00:45 04/28/21 00:50 04/28/21 06:30 White Blood Count 6.8 x10^3/uL (4.0-11.0) Red Blood Count 4.09 x10^6/uL (3.50-5.40) Hemoglobin 11.5 g/dL (12.0-15.5) Hematocrit 35.7 % (36.0-47.0) Mean Corpuscular Volume 87 fL (79-100) Mean Corpuscular Hemoglobin 28 pg (25-35) Mean Corpuscular Hemoglobin Concent 32 g/dL (31-37) Red Cell Distribution Width 16.4 % (11.5-14.5) Platelet Count 284 x10^3/uL (140-400) Neutrophils (%) (Auto) 62 % (31-73) Lymphocytes (%) (Auto) 24 % (24-48) Monocytes (%) (Auto) 11 % (0-9) Eosinophils (%) (Auto) 2 % (0-3) Basophils (%) (Auto) 1 % (0-3) Neutrophils # (Auto) 4.3 x10^3/uL (1.8-7.7) Lymphocytes # (Auto) 1.6 x10^3/uL (1.0-4.8) Monocytes # (Auto) 0.7 x10^3/uL (0.0-1.1) Eosinophils # (Auto) 0.1 x10^3/uL (0.0-0.7) Basophils # (Auto) 0.1 x10^3/uL (0.0-0.2) SARS-CoV-2 RNA (ELIZABETH) Negative (Negative) SARS-CoV-2 Antigen (Rapid) Negative (NEGATIVE) Sodium Level 141 mmol/L (136-145) Potassium Level 3.2 mmol/L (3.5-5.1) Chloride Level 107 mmol/L (98-107) Carbon Dioxide Level 23 mmol/L (21-32) Anion Gap 11 (6-14) Blood Urea Nitrogen 18 mg/dL (7-20) Creatinine 1.0 mg/dL (0.6-1.0) Estimated GFR (Cockcroft-Gault) 66.3 BUN/Creatinine Ratio 18 (6-20) Glucose Level 109 mg/dL (70-99) Calcium Level 9.1 mg/dL (8.5-10.1) Total Bilirubin 0.8 mg/dL (0.2-1.0) Aspartate Amino Transf (AST/SGOT) 17 U/L (15-37) Alanine Aminotransferase (ALT/SGPT) 27 U/L (14-59) Alkaline Phosphatase 112 U/L (46-116) Troponin I Quantitative < 0.017 ng/mL (0.000-0.055) RB-Tvz-M-Type Natriuretic Peptide 1645 pg/mL (0-124) Total Protein 7.0 g/dL (6.4-8.2) Albumin 3.2 g/dL (3.4-5.0) Albumin/Globulin Ratio 0.8 (1.0-1.7) Lactic Acid Level 1.1 mmol/L (0.4-2.0) Test 04/28/21 12:25 Prothrombin Time 27.4 SEC (11.7-14.0) Prothromb Time International Ratio 2.6 (0.8-1.1) Laboratory Tests Test 04/27/21 23:50 04/28/21 00:45 04/28/21 00:50 04/28/21 06:30 White Blood Count 6.8 x10^3/uL (4.0-11.0) Red Blood Count 4.09 x10^6/uL (3.50-5.40) Hemoglobin 11.5 g/dL (12.0-15.5) Hematocrit 35.7 % (36.0-47.0) Mean Corpuscular Volume 87 fL (79-100) Mean Corpuscular Hemoglobin 28 pg (25-35) Mean Corpuscular Hemoglobin Concent 32 g/dL (31-37) Red Cell Distribution Width 16.4 % (11.5-14.5) Platelet Count 284 x10^3/uL (140-400) Neutrophils (%) (Auto) 62 % (31-73) Lymphocytes (%) (Auto) 24 % (24-48) Monocytes (%) (Auto) 11 % (0-9) Eosinophils (%) (Auto) 2 % (0-3) Basophils (%) (Auto) 1 % (0-3) Neutrophils # (Auto) 4.3 x10^3/uL (1.8-7.7) Lymphocytes # (Auto) 1.6 x10^3/uL (1.0-4.8) Monocytes # (Auto) 0.7 x10^3/uL (0.0-1.1) Eosinophils # (Auto) 0.1 x10^3/uL (0.0-0.7) Basophils # (Auto) 0.1 x10^3/uL (0.0-0.2) SARS-CoV-2 RNA (ELIZABETH) Negative (Negative) SARS-CoV-2 Antigen (Rapid) Negative (NEGATIVE) Sodium Level 141 mmol/L (136-145) Potassium Level 3.2 mmol/L (3.5-5.1) Chloride Level 107 mmol/L (98-107) Carbon Dioxide Level 23 mmol/L (21-32) Anion Gap 11 (6-14) Blood Urea Nitrogen 18 mg/dL (7-20) Creatinine 1.0 mg/dL (0.6-1.0) Estimated GFR (Cockcroft-Gault) 66.3 BUN/Creatinine Ratio 18 (6-20) Glucose Level 109 mg/dL (70-99) Calcium Level 9.1 mg/dL (8.5-10.1) Total Bilirubin 0.8 mg/dL (0.2-1.0) Aspartate Amino Transf (AST/SGOT) 17 U/L (15-37) Alanine Aminotransferase (ALT/SGPT) 27 U/L (14-59) Alkaline Phosphatase 112 U/L (46-116) Troponin I Quantitative < 0.017 ng/mL (0.000-0.055) SF-Ttg-F-Type Natriuretic Peptide 1645 pg/mL (0-124) Total Protein 7.0 g/dL (6.4-8.2) Albumin 3.2 g/dL (3.4-5.0) Albumin/Globulin Ratio 0.8 (1.0-1.7) Lactic Acid Level 1.1 mmol/L (0.4-2.0) Test 04/28/21 12:25 Prothrombin Time 27.4 SEC (11.7-14.0) Prothromb Time International Ratio 2.6 (0.8-1.1) Images Images Chest x-ray as above. Assessment/Plan Assessment/Plan 1. Acute hypoxic respiratory failure. Pneumonia with exacerbation of COPD. Patient has been started on antibiotics and pulmonary treatments. She is being evaluated by the pulmonary service. 2. History of chronic atrial fibrillation. Rate controlled. Continue rate control medications and anticoagulation. 3. Hypertension. Continue present treatment and monitor. 4. Probable history of previous Covid infection. Updated testing is negative. 5. Peripheral vascular disease. No reported claudication. Continue present treatment. 6. Probable component of heart failure. As noted above LV function was normal in 2018. We will continue with treatment as above and check an echo. TRACEE BURNS MD Apr 28, 2021 14:38
[2021-04-28 15:05] VITALS: BP 98/68
[2021-04-28] MEDS: WARFARIN 3 MG TABLET. PO SCH (17:32)
[2021-04-28 19:00] VITALS: BP 137/63
[2021-04-28] MEDS: ATORVASTATIN CALCIUM 20 MG TABLET PO SCH (21:14)
[2021-04-28 23:24] VITALS: BP 140/68
[2021-04-29 03:00] VITALS: BP 98/1
[2021-04-29 07:00] VITALS: BP 138/79
[2021-04-29] MEDS: IPRATROPIUM BROMIDE 0.5 MG/2.5 ML NEBU. NEB SCH ×4 (08:14→19:43)
--- NOTE | 2021-04-29 08:19 | PDOC ---
PULMONARY PROGRESS NOTES DATE: 04/29/21 TIME: 08:18 Subjective on RA sob better has occ cough Vitals Vital Signs Date Time Temp Pulse Resp B/P (MAP) Pulse Ox O2 Delivery O2 Flow Rate FiO2 04/29/21 08:14 99 Room Air 04/29/21 07:00 98.1 81 18 138/79 (98) 3.0 98.1 ROS: No Nausea, No Chest Pain (nc at ) General: Alert, No acute distress HEENT: Other Lungs: Crackles Cardiovascular: S1, S2 Abdomen: Soft Neuro Exam: Alert Extremities: Other Skin: Warm Labs Laboratory Tests Test 04/27/21 23:50 04/28/21 00:45 04/28/21 00:50 04/28/21 06:30 White Blood Count 6.8 x10^3/uL (4.0-11.0) Red Blood Count 4.09 x10^6/uL (3.50-5.40) Hemoglobin 11.5 g/dL (12.0-15.5) Hematocrit 35.7 % (36.0-47.0) Mean Corpuscular Volume 87 fL (79-100) Mean Corpuscular Hemoglobin 28 pg (25-35) Mean Corpuscular Hemoglobin Concent 32 g/dL (31-37) Red Cell Distribution Width 16.4 % (11.5-14.5) Platelet Count 284 x10^3/uL (140-400) Neutrophils (%) (Auto) 62 % (31-73) Lymphocytes (%) (Auto) 24 % (24-48) Monocytes (%) (Auto) 11 % (0-9) Eosinophils (%) (Auto) 2 % (0-3) Basophils (%) (Auto) 1 % (0-3) Neutrophils # (Auto) 4.3 x10^3/uL (1.8-7.7) Lymphocytes # (Auto) 1.6 x10^3/uL (1.0-4.8) Monocytes # (Auto) 0.7 x10^3/uL (0.0-1.1) Eosinophils # (Auto) 0.1 x10^3/uL (0.0-0.7) Basophils # (Auto) 0.1 x10^3/uL (0.0-0.2) SARS-CoV-2 RNA (ELIZABETH) Negative (Negative) SARS-CoV-2 Antigen (Rapid) Negative (NEGATIVE) Sodium Level 141 mmol/L (136-145) Potassium Level 3.2 mmol/L (3.5-5.1) Chloride Level 107 mmol/L (98-107) Carbon Dioxide Level 23 mmol/L (21-32) Anion Gap 11 (6-14) Blood Urea Nitrogen 18 mg/dL (7-20) Creatinine 1.0 mg/dL (0.6-1.0) Estimated GFR (Cockcroft-Gault) 66.3 BUN/Creatinine Ratio 18 (6-20) Glucose Level 109 mg/dL (70-99) Calcium Level 9.1 mg/dL (8.5-10.1) Total Bilirubin 0.8 mg/dL (0.2-1.0) Aspartate Amino Transf (AST/SGOT) 17 U/L (15-37) Alanine Aminotransferase (ALT/SGPT) 27 U/L (14-59) Alkaline Phosphatase 112 U/L (46-116) Troponin I Quantitative < 0.017 ng/mL (0.000-0.055) NU-[id number]-Type Natriuretic Peptide 1645 pg/mL (0-124) Total Protein 7.0 g/dL (6.4-8.2) Albumin 3.2 g/dL (3.4-5.0) Albumin/Globulin Ratio 0.8 (1.0-1.7) Lactic Acid Level 1.1 mmol/L (0.4-2.0) Test 04/28/21 12:25 Prothrombin Time 27.4 SEC (11.7-14.0) Prothromb Time International Ratio 2.6 (0.8-1.1) Laboratory Tests Test 04/28/21 12:25 Prothrombin Time 27.4 SEC (11.7-14.0) Prothromb Time International Ratio 2.6 (0.8-1.1) Medications Active Scripts Medications Dose Route/Sig Max Daily Dose Days Date Category Hydralazine Hcl 100 Mg Tablet 1 Tab PO TID 03/30/21 Reported Losartan Potassium 100 Mg Tablet 100 Mg PO DAILY 03/30/21 Reported Amlodipine Besylate 10 Mg Tablet 10 Mg PO DAILY 30 03/30/21 Rx [Warfarin Per Pharmacy] 5 1 Each MC PRN DAILY PRN 14 8/27/21 Rx Hydrocodone-Apap 5-325 (Hydrocodone Bit/Acetaminophen) 1 Tab Tablet 1 Tab PO PRN Q4HRS PRN 10 03/30/21 Rx [place] 5-325 Tablet (Acetaminophen/Hydrocodone Bitart) 1 Each Tablet 0.5-1 Tab PO PRN Q6HRS PRN 02/01/19 Rx Orphenadrine Citrate 100 Mg Tablet.er 1 Tab PO BID 02/01/19 Rx Prednisone 20 Mg Tablet 2 Tab PO DAILY 02/01/19 Rx Coumadin (Warfarin Sodium) 3 Mg Tablet 1 Tab PO DAILY 07/16/18 Reported Atorvastatin Calcium 20 Mg Tablet 1 Tab PO DAILY 11/15/16 Reported Metoprolol Tartrate 25 Mg Tablet 1 Tab PO BID 11/15/16 Reported Impression . IMPRESSION: 1. Acute respiratory failure secondary to acute diastolic congestive heart failure. 2. Abnormal chest x-ray. 3. Acute diastolic congestive heart failure. 4. Atrial fibrillation, on Coumadin. 5. Smoker, suspect she has chronic obstructive pulmonary disease. 6. Obesity, snoring, excessive daytime sleepiness, suspect she has obstructive sleep apnea-hypopnea syndrome. 7. Recent COVID pneumonia. 8. Peripheral arterial disease. 9. Hypokalemia. Plan . PLAN AND RECOMMENDATIONS: 1. Titrate FiO2 to keep O2 saturation 90%. She would require 6-minute walk at discharge. 2. I had a long discussion with her regarding smoking cessation. I have advised her to stop smoking forever. 3. Keep intake less than output. Agree with Lasix. Monitor potassium and creatinine. 4. Replaced potassium. 5. bronchodilator, Atrovent only. She has AFib. Avoid albuterol. need pfts as outpt 6. Continue Coumadin. Adjust dose per INR. 7. I have discussed obstructive sleep apnea-hypopnea syndrome, the importance of diagnosis and treatment, if untreated, increased cardiovascular and [employer] morbidity and mortality. I do recommend sleep study as an outpatient. discussed w NATALEE Jewell MD Apr 29, 2021 08:19
[2021-04-29] MEDS ORDERED: AZITHROMYCIN 500 MG in IV NORMAL SALINE 250ML 250 ML IV SCH (09:00)
[2021-04-29] MEDS ORDERED: cefTRIAXone IV Push 1 GM VIAL. IVP SCH (09:00)
[2021-04-29] MEDS: predniSONE 20 MG TABLET PO SCH (09:04)
[2021-04-29] MEDS: METOPROLOL TART IMMED RELEASE 25 MG TABLET. PO SCH ×2 (09:04→21:14)
[2021-04-29] MEDS: LOSARTAN POTASSIUM 50 MG TABLET. PO SCH (09:05)
[2021-04-29 09:33] LABS: CALCIUM 8.7 mg/dL (8.5-10.1); GFR 66.3; MAGNESIUM 1.8 mg/dL (1.8-2.4); POTASSIUM 3.3 mmol/L (3.5-5.1)
[2021-04-29 09:45] LABS: BASO % 0 % (0-3); EOS % 0 % (0-3); HEMATOCRIT 32.5 % (36.0-47.0); HEMOGLOBIN 10.6 g/dL (12.0-15.5); LYMPH # 1.5 x10^3/uL (1.0-4.8); LYMPH % 10 % (24-48); MEAN CORPUSCULAR HEMOGLOBIN 29 pg (25-35); MEAN CORPUSCULAR HGB CONC 33 g/dL (31-37); MEAN CORPUSCULAR VOLUME 88 fL (79-100); MONO # 1.1 x10^3/uL (0.0-1.1); MONO % 7 % (0-9); NEUT # 11.8 x10^3/uL (1.8-7.7); NEUT % 82 % (31-73); PLATELET COUNT 261 x10^3/uL (140-400); RED CELL DISTRIBUTION WIDTH 16.1 % (11.5-14.5); WHITE BLOOD COUNT 14.4 x10^3/uL (4.0-11.0)
[2021-04-29] MEDS: NICOTINE 7MG PATCH. TD SCH (10:28)
[2021-04-29 11:00] VITALS: BP 128/60
--- NOTE | 2021-04-29 11:39 | PDOC ---
[facility] PROGRESS NOTE Date of Service DOS: DATE: 04/29/21 TIME: 11:35 Chief Complaint Chief Complaint Acute hypoxic respiratory failure Bilateral pneumonia, possible gram-negative organisms Acute COPD exacerbation Elevated BNP, there is moderate cardiomegaly no signs of fluid overload likely due to chronic hypoxia Complication of COVID-19 infection History of atrial fibrillation on Coumadin History of CAD History of hypertension Moderate protein malnutrition History of PVD Tobacco use IV Lasix x1 time today. We will switch azithromycin to doxycycline due to history of atrial fibrillation Continue empiric IV antibiotics O2 supplementation as needed to maintain O2 saturations between 88 to 92% Pulmonology consult Cardiology consult Pending MRSA and Legionella urine antigen Warfarin for DVT prophylaxis Protonix if on steroids GI prophylaxis ADA diet CODE STATUS full Discussed with RN and SW Disposition inpatient management as above DPOA: Daughter History of Present Illness History of Present Illness 70-year-old female with past medical history of CAD, hypertension and a [id number] smoking history who continues to smoke about half a pack per day. Patient states that she had a Covid test done last month but has not felt well since that time. She has had increased nonproductive cough. She also has been having worsening shortness of breath that started yesterday. She also does complain of some lower extremity edema. Denies any fevers, chest pain, abdominal pain, diarrhea, dysuria or hematuria or constipation. 04/29/2021 No acute events overnight. Patient notices marked improvement after Lasix dose. Currently saturating 99% on room air. We will repeat 1 more dose of IV Lasix. Anticipate discharge in the next 24 hours. Patient's chart, labs, images were reviewed and discussed with RN Vitals/I&O Vitals/I&O: Vital Signs Date Time Temp Pulse Resp B/P (MAP) Pulse Ox O2 Delivery O2 Flow Rate FiO2 04/29/21 09:05 81 138/79 04/29/21 08:14 99 Room Air 04/29/21 07:00 98.1 18 3.0 98.1 I & O 04/28/21 04/28/21 04/29/21 15:00 23:00 07:00 Intake Total 320 ml 500 ml 0 ml Balance 320 ml 500 ml 0 ml Physical Exam General: Alert, Oriented X3, Cooperative, mild distress Heart: Other (Irregularly irregular) Lungs: Crackles Abdomen: Normal bowel sounds Extremities: Other (+1 bilateral pedal edema) Skin: No rashes Labs Labs: Laboratory Tests Test 04/28/21 12:25 04/29/21 07:30 Prothrombin Time 27.4 SEC (11.7-14.0) 25.0 SEC (11.7-14.0) Prothromb Time International Ratio 2.6 (0.8-1.1) 2.3 (0.8-1.1) White Blood Count 14.4 x10^3/uL (4.0-11.0) Red Blood Count 3.70 x10^6/uL (3.50-5.40) Hemoglobin 10.6 g/dL (12.0-15.5) Hematocrit 32.5 % (36.0-47.0) Mean Corpuscular Volume 88 fL (79-100) Mean Corpuscular Hemoglobin 29 pg (25-35) Mean Corpuscular Hemoglobin Concent 33 g/dL (31-37) Red Cell Distribution Width 16.1 % (11.5-14.5) Platelet Count 261 x10^3/uL (140-400) Neutrophils (%) (Auto) 82 % (31-73) Lymphocytes (%) (Auto) 10 % (24-48) Monocytes (%) (Auto) 7 % (0-9) Eosinophils (%) (Auto) 0 % (0-3) Basophils (%) (Auto) 0 % (0-3) Neutrophils # (Auto) 11.8 x10^3/uL (1.8-7.7) Lymphocytes # (Auto) 1.5 x10^3/uL (1.0-4.8) Monocytes # (Auto) 1.1 x10^3/uL (0.0-1.1) Eosinophils # (Auto) 0.0 x10^3/uL (0.0-0.7) Basophils # (Auto) 0.0 x10^3/uL (0.0-0.2) Sodium Level 136 mmol/L (136-145) Potassium Level 3.3 mmol/L (3.5-5.1) Chloride Level 102 mmol/L (98-107) Carbon Dioxide Level 23 mmol/L (21-32) Anion Gap 11 (6-14) Blood Urea Nitrogen 22 mg/dL (7-20) Creatinine 1.0 mg/dL (0.6-1.0) Estimated GFR (Cockcroft-Gault) 66.3 Glucose Level 110 mg/dL (70-99) Calcium Level 8.7 mg/dL (8.5-10.1) Magnesium Level 1.8 mg/dL (1.8-2.4) Assessment and Plan Assessmemt and Plan Problems Medical Problems: (1) Dyspnea Status: Acute (2) Elevated brain natriuretic peptide (BNP) level Status: Acute (3) Hypoxia Status: Acute (4) Person under investigation for COVID-19 Status: Acute Comment Review of Relevant I have reviewed the following items jamari (where applicable) has been applied. Medications: Current Medications Medications (Trade) Dose Ordered Sig/Rosa Route PRN Reason Start Time Stop Time Status Last Admin Dose Admin Ipratropium [place] (Atrovent) 0.5 mg RTQID NEB 04/28/21 12:00 04/29/21 08:14 Azithromycin 500 mg/Sodium Chloride 250 ml @ 250 mls/hr Q24H IV 04/29/21 09:00 04/30/21 08:59 04/29/21 09:03 Ceftriaxone Sodium (Rocephin) 1 gm Q24H IVP 04/29/21 09:00 04/30/21 08:59 04/29/21 09:03 Amlodipine Besylate (Norvasc) 10 mg DAILY PO 04/28/21 12:00 04/29/21 09:04 Atorvastatin Calcium (Lipitor) 20 mg QHS PO 04/28/21 21:00 04/28/21 21:14 Metoprolol Tartrate (Lopressor) 25 mg BID PO 04/28/21 12:00 04/29/21 09:04 Prednisone (Prednisone) 40 mg DAILY PO 04/29/21 09:00 04/29/21 09:04 Warfarin Sodium (Coumadin) 3 mg DAILY16 PO 04/28/21 16:00 04/28/21 17:32 Losartan Potassium (Cozaar) 100 mg DAILY PO 04/28/21 12:00 04/29/21 09:05 Nicotine (Nicoderm Cq 7mg) 1 patch DAILY TD 04/28/21 14:00 04/29/21 10:28 Justifications for Admission Other Justification JOSE JUAN STOLL MD Apr 29, 2021 11:39
[2021-04-29] MEDS ORDERED: FUROSEMIDE 40 MG/4 ML VIAL. IVP ONE (11:45)
--- NOTE | 2021-04-29 12:11 | PDOC ---
PROGRESS NOTES Date of Service DATE: 04/29/21 TIME: 12:09 Subjective Subjective Patient seen and examined Objective Objective Vital Signs Date Time Temp Pulse Resp B/P (MAP) Pulse Ox O2 Delivery O2 Flow Rate FiO2 04/29/21 11:52 100 Room Air 04/29/21 11:00 98.2 84 20 128/60 (82) 98.2 04/29/21 07:00 Intake and Output 04/29/21 07:00 Intake Total 820 ml Balance 820 ml Intake Oral 820 ml # Voids 5 Physical Exam Abdomen: Normal bowel sounds Heart: Other (Irregularly irregular) General: mild distress Lungs: Other (Mildly decreased breath sound) Assessment Assessment Problems Medical Problems: (1) Dyspnea Status: Acute (2) Elevated brain natriuretic peptide (BNP) level Status: Acute (3) Hypoxia Status: Acute (4) Person under investigation for COVID-19 Status: Acute 1. Acute hypoxic respiratory failure. Pneumonia with exacerbation of COPD. Patient has been started on antibiotics and pulmonary treatments. She is looking and feeling better today. 2. History of chronic atrial fibrillation. Rate controlled. Continue rate control medications and anticoagulation. 3. Hypertension. Continue present treatment and monitor. 4. Probable history of previous Covid infection. Updated testing is negative. 5. Peripheral vascular disease. No reported claudication. Continue present treatment. 6. Probable component of heart failure. As noted above LV function was normal in 2018. Improved on present treatments. Echocardiogram pending. 7. Hypokalemia. Being replaced. Comment Review of Relevant I have reviewed the following items jamari (where applicable) has been applied. Labs Laboratory Tests Test 04/27/21 23:50 04/28/21 00:45 04/28/21 00:50 04/28/21 06:30 White Blood Count 6.8 x10^3/uL (4.0-11.0) Red Blood Count 4.09 x10^6/uL (3.50-5.40) Hemoglobin 11.5 g/dL (12.0-15.5) Hematocrit 35.7 % (36.0-47.0) Mean Corpuscular Volume 87 fL (79-100) Mean Corpuscular Hemoglobin 28 pg (25-35) Mean Corpuscular Hemoglobin Concent 32 g/dL (31-37) Red Cell Distribution Width 16.4 % (11.5-14.5) Platelet Count 284 x10^3/uL (140-400) Neutrophils (%) (Auto) 62 % (31-73) Lymphocytes (%) (Auto) 24 % (24-48) Monocytes (%) (Auto) 11 % (0-9) Eosinophils (%) (Auto) 2 % (0-3) Basophils (%) (Auto) 1 % (0-3) Neutrophils # (Auto) 4.3 x10^3/uL (1.8-7.7) Lymphocytes # (Auto) 1.6 x10^3/uL (1.0-4.8) Monocytes # (Auto) 0.7 x10^3/uL (0.0-1.1) Eosinophils # (Auto) 0.1 x10^3/uL (0.0-0.7) Basophils # (Auto) 0.1 x10^3/uL (0.0-0.2) SARS-CoV-2 RNA (ELIZABETH) Negative (Negative) SARS-CoV-2 Antigen (Rapid) Negative (NEGATIVE) Sodium Level 141 mmol/L (136-145) Potassium Level 3.2 mmol/L (3.5-5.1) Chloride Level 107 mmol/L (98-107) Carbon Dioxide Level 23 mmol/L (21-32) Anion Gap 11 (6-14) Blood Urea Nitrogen 18 mg/dL (7-20) Creatinine 1.0 mg/dL (0.6-1.0) Estimated GFR (Cockcroft-Gault) 66.3 BUN/Creatinine Ratio 18 (6-20) Glucose Level 109 mg/dL (70-99) Calcium Level 9.1 mg/dL (8.5-10.1) Total Bilirubin 0.8 mg/dL (0.2-1.0) Aspartate Amino Transf (AST/SGOT) 17 U/L (15-37) Alanine Aminotransferase (ALT/SGPT) 27 U/L (14-59) Alkaline Phosphatase 112 U/L (46-116) Troponin I Quantitative < 0.017 ng/mL (0.000-0.055) DY-Whi-Y-Type Natriuretic Peptide 1645 pg/mL (0-124) Total Protein 7.0 g/dL (6.4-8.2) Albumin 3.2 g/dL (3.4-5.0) Albumin/Globulin Ratio 0.8 (1.0-1.7) Lactic Acid Level 1.1 mmol/L (0.4-2.0) Test 04/28/21 12:25 04/29/21 07:30 Prothrombin Time 27.4 SEC (11.7-14.0) 25.0 SEC (11.7-14.0) Prothromb Time International Ratio 2.6 (0.8-1.1) 2.3 (0.8-1.1) White Blood Count 14.4 x10^3/uL (4.0-11.0) Red Blood Count 3.70 x10^6/uL (3.50-5.40) Hemoglobin 10.6 g/dL (12.0-15.5) Hematocrit 32.5 % (36.0-47.0) Mean Corpuscular Volume 88 fL (79-100) Mean Corpuscular Hemoglobin 29 pg (25-35) Mean Corpuscular Hemoglobin Concent 33 g/dL (31-37) Red Cell Distribution Width 16.1 % (11.5-14.5) Platelet Count 261 x10^3/uL (140-400) Neutrophils (%) (Auto) 82 % (31-73) Lymphocytes (%) (Auto) 10 % (24-48) Monocytes (%) (Auto) 7 % (0-9) Eosinophils (%) (Auto) 0 % (0-3) Basophils (%) (Auto) 0 % (0-3) Neutrophils # (Auto) 11.8 x10^3/uL (1.8-7.7) Lymphocytes # (Auto) 1.5 x10^3/uL (1.0-4.8) Monocytes # (Auto) 1.1 x10^3/uL (0.0-1.1) Eosinophils # (Auto) 0.0 x10^3/uL (0.0-0.7) Basophils # (Auto) 0.0 x10^3/uL (0.0-0.2) Sodium Level 136 mmol/L (136-145) Potassium Level 3.3 mmol/L (3.5-5.1) Chloride Level 102 mmol/L (98-107) Carbon Dioxide Level 23 mmol/L (21-32) Anion Gap 11 (6-14) Blood Urea Nitrogen 22 mg/dL (7-20) Creatinine 1.0 mg/dL (0.6-1.0) Estimated GFR (Cockcroft-Gault) 66.3 Glucose Level 110 mg/dL (70-99) Calcium Level 8.7 mg/dL (8.5-10.1) Magnesium Level 1.8 mg/dL (1.8-2.4) Laboratory Tests Test 04/28/21 12:25 04/29/21 07:30 Prothrombin Time 27.4 SEC (11.7-14.0) 25.0 SEC (11.7-14.0) Prothromb Time International Ratio 2.6 (0.8-1.1) 2.3 (0.8-1.1) White Blood Count 14.4 x10^3/uL (4.0-11.0) Red Blood Count 3.70 x10^6/uL (3.50-5.40) Hemoglobin 10.6 g/dL (12.0-15.5) Hematocrit 32.5 % (36.0-47.0) Mean Corpuscular Volume 88 fL (79-100) Mean Corpuscular Hemoglobin 29 pg (25-35) Mean Corpuscular Hemoglobin Concent 33 g/dL (31-37) Red Cell Distribution Width 16.1 % (11.5-14.5) Platelet Count 261 x10^3/uL (140-400) Neutrophils (%) (Auto) 82 % (31-73) Lymphocytes (%) (Auto) 10 % (24-48) Monocytes (%) (Auto) 7 % (0-9) Eosinophils (%) (Auto) 0 % (0-3) Basophils (%) (Auto) 0 % (0-3) Neutrophils # (Auto) 11.8 x10^3/uL (1.8-7.7) Lymphocytes # (Auto) 1.5 x10^3/uL (1.0-4.8) Monocytes # (Auto) 1.1 x10^3/uL (0.0-1.1) Eosinophils # (Auto) 0.0 x10^3/uL (0.0-0.7) Basophils # (Auto) 0.0 x10^3/uL (0.0-0.2) Sodium Level 136 mmol/L (136-145) Potassium Level 3.3 mmol/L (3.5-5.1) Chloride Level 102 mmol/L (98-107) Carbon Dioxide Level 23 mmol/L (21-32) Anion Gap 11 (6-14) Blood Urea Nitrogen 22 mg/dL (7-20) Creatinine 1.0 mg/dL (0.6-1.0) Estimated GFR (Cockcroft-Gault) 66.3 Glucose Level 110 mg/dL (70-99) Calcium Level 8.7 mg/dL (8.5-10.1) Magnesium Level 1.8 mg/dL (1.8-2.4) Microbiology 04/28/21 Blood Culture - Preliminary, Resulted NO GROWTH AFTER 1 DAY Medications Current Medications Dexamethasone Sodium Phosphate (Decadron) 10 mg 1X ONCE IVP Last administered on 04/28/21at 00:48; Start 04/28/21 at 01:00; Stop 04/28/21 at 01:01; Status DC Furosemide (Lasix) 40 mg 1X ONCE IVP Last administered on 04/28/21at 03:11; Start 04/28/21 at 02:00; Stop 04/28/21 at 02:01; Status DC Ceftriaxone Sodium (Rocephin) 1 gm 1X ONCE IVP Last administered on 04/28/21at 05:37; Start 04/28/21 at 03:30; Stop 04/28/21 at 03:31; Status DC Azithromycin 250 ml @ 250 mls/hr 1X ONCE IV Last administered on 04/28/21at 05:37; Start 04/28/21 at 03:30; Stop 04/28/21 at 04:29; Status DC Acetaminophen (Tylenol) 650 mg PRN Q4HRS PRN PO MILD PAIN / TEMP > 100.3'F; Start 04/28/21 at 04:30 Influenza Virus Vaccine Quadrival (Flulaval Quad 0469-2297 Syringe) 0.5 ml ONCE ONCE VAX IM Last administered on 04/28/21at 08:07; Start 04/28/21 at 09:00; Stop 04/28/21 at 09:01; Status DC Ipratropium [place] (Atrovent) 0.5 mg RTQID NEB Last administered on 04/29/21at 11:50; Start 04/28/21 at 12:00 Ipratropium [place] (Atrovent) 0.5 mg 1X ONCE NEB ; Start 04/28/21 at 09:15; Stop 04/28/21 at 09:16; Status DC Azithromycin 500 mg/Sodium Chloride 250 ml @ 250 mls/hr Q24H IV Last administered on 04/29/21at 09:03; Start 04/29/21 at 09:00; Stop 04/29/21 at 11:36; Status DC Ceftriaxone Sodium (Rocephin) 1 gm Q24H IVP Last administered on 04/29/21at 09:03; Start 04/29/21 at 09:00; Stop 04/30/21 at 08:59 Amlodipine Besylate (Norvasc) 10 mg DAILY PO Last administered on 04/29/21at 09:04; Start 04/28/21 at 12:00 Atorvastatin Calcium (Lipitor) 20 mg QHS PO Last administered on 04/28/21at 21:14; Start 04/28/21 at 21:00 Metoprolol Tartrate (Lopressor) 25 mg BID PO Last administered on 04/29/21at 09:04; Start 04/28/21 at 12:00 Prednisone (Prednisone) 40 mg DAILY PO Last administered on 04/29/21at 09:04; Start 04/29/21 at 09:00 Warfarin Sodium (Coumadin) 3 mg DAILY16 PO Last administered on 04/28/21at 17:32; Start 04/28/21 at 16:00 Losartan Potassium (Cozaar) 100 mg DAILY PO Last administered on 04/29/21at 09:05; Start 04/28/21 at 12:00 Non-Formulary Medication ([Warfarin Per Pharmacy] ) 1 each PRN DAILY PRN MC SEE COMMENTS; Start 04/28/21 at 11:15; Status UNV Warfarin Sodium (Coumadin Per Pharmacy) 1 each PRN DAILY PRN MC SEE COMMENTS; Start 04/28/21 at 11:30 Nicotine (Nicoderm Cq 7mg) 1 patch DAILY TD Last administered on 04/29/21at 10:28; Start 04/28/21 at 14:00 Doxycycline Hyclate (Vibra-Tab) 100 mg BID PO ; Start 04/29/21 at 21:00 Furosemide (Lasix) 40 mg 1X ONCE IVP ; Start 04/29/21 at 11:45; Stop 04/29/21 at 11:46; Status DC Potassium Chloride (Klor-Con) 40 meq BID PO ; Start 04/29/21 at 21:00; Stop 04/30/21 at 20:59 Active Scripts Active Amlodipine Besylate 10 Mg Tablet 10 Mg PO DAILY 30 Days [Warfarin Per Pharmacy] 5 1 Each MC PRN DAILY PRN 14 Days Hydrocodone-Apap 5-325 (Hydrocodone Bit/Acetaminophen) 1 Tab Tablet 1 Tab PO PRN Q4HRS PRN 10 Days [place] 5-325 Tablet (Acetaminophen/Hydrocodone Bitart) 1 Each Tablet 0.5-1 Tab PO PRN Q6HRS PRN Orphenadrine Citrate 100 Mg Tablet.er 1 Tab PO BID Prednisone 20 Mg Tablet 2 Tab PO DAILY Reported Hydralazine Hcl 100 Mg Tablet 1 Tab PO TID Losartan Potassium 100 Mg Tablet 100 Mg PO DAILY Coumadin (Warfarin Sodium) 3 Mg Tablet 1 Tab PO DAILY Atorvastatin Calcium 20 Mg Tablet 1 Tab PO DAILY Metoprolol Tartrate 25 Mg Tablet 1 Tab PO BID Vitals/I & O Vital Sign - Last 24 Hours 04/28/21 04/28/21 04/28/21 04/28/21 12:25 12:25 12:26 12:29 Pulse 89 89 89 B/P (MAP) 131/63 131/63 131/63 Pulse Ox 100 04/28/21 04/28/21 04/28/21 04/28/21 15:05 16:33 19:00 19:10 Temp 98.1 98.3 98.1 98.3 Pulse 96 88 Resp 20 20 B/P (MAP) 98/68 (78) 137/63 (87) Pulse Ox 95 100 93 O2 Delivery Nasal Cannula Nasal Cannula Room Air O2 Flow Rate 3.0 3.0 04/28/21 04/28/21 04/28/21 04/29/21 21:13 21:40 23:24 03:00 Temp 98.1 98.1 98.1 98.1 Pulse 88 96 98 Resp 20 20 B/P (MAP) 137/63 140/68 (92) 98/1 (33) Pulse Ox 100 97 98 O2 Delivery Room Air Room Air 04/29/21 04/29/21 04/29/21 04/29/21 07:00 08:14 09:04 09:04 Temp 98.1 98.1 Pulse 81 81 81 Resp 18 B/P (MAP) 138/79 (98) 138/79 138/79 Pulse Ox 97 99 O2 Delivery Room Air Room Air O2 Flow Rate 04/29/21 04/29/21 04/29/21 09:05 11:00 11:52 Temp 98.2 98.2 Pulse 81 84 Resp 20 B/P (MAP) 138/79 128/60 (82) Pulse Ox 95 100 O2 Delivery Room Air Room Air Intake and Output 04/28/21 04/28/21 04/29/21 15:00 23:00 07:00 Intake Total 320 ml 500 ml 0 ml Balance 320 ml 500 ml 0 ml Justifications for Admission Other Justification TRACEE BURNS MD Apr 29, 2021 12:11
--- NOTE | 2021-04-29 13:12 | NUR ---
Pharmacy Warfarin Dosing Note S: Pharmacy consulted to assist with anticoagulation therapy O: BUSTER ODOM is a 70 year old F with Atrial Fibrillation LABS: Last INR: 2.3 Last HGB: 10.6 Last HCT: 32.5 Last PLT: 261 Last dose of 3 mg given on 04/28/21 at 1725 Vitamin K given: N A:INR of 2.3 is within desired range. Target range for this patient is: 2 - 3 P: Warfarin dose: 3 mg Today at 1600 Bridge Therapy: None Next INR due 04/30/21 Pharmacy anticoagulation service will continue to follow. EDWIGE RODRIGUEZ [facility], 04/29/21 1615
[2021-04-29 15:00] VITALS: BP 133/66
--- NOTE | 2021-04-29 15:11 | NUR ---
PT screen complete After review of medical chart and speaking with MICHAEL Shoemaker, pt. would benefit from skilled PT/OT intervention to improve functional mobility. Please issue PT/OT orders. Thank you
[2021-04-29] MEDS: WARFARIN 3 MG TABLET. PO SCH (17:37)
[2021-04-29 19:00] VITALS: BP 142/65
[2021-04-29] MEDS: LACTOBACILLUS RHAMNOSUS GG 1 CAPSULE. PO SCH (21:14)
[2021-04-29] MEDS: DOXYCYCLINE HYCLATE 100 MG TABLET PO SCH (21:14)
[2021-04-29] MEDS: POTASSIUM CHLORIDE 20 MEQ TABLET.ER. PO SCH (21:15)
[2021-04-29] MEDS: ATORVASTATIN CALCIUM 20 MG TABLET PO SCH (21:15)
[2021-04-29 23:00] VITALS: BP 136/64
[2021-04-30 03:00] VITALS: BP 142/68
[2021-04-30 07:00] VITALS: BP 145/65
[2021-04-30] MEDS: IPRATROPIUM BROMIDE 0.5 MG/2.5 ML NEBU. NEB SCH ×2 (07:44→11:41)
--- NOTE | 2021-04-30 08:11 | PDOC ---
PULMONARY PROGRESS NOTES DATE: 04/30/21 TIME: 08:10 Subjective on RA sob better has occ cough Vitals Vital Signs Date Time Temp Pulse Resp B/P (MAP) Pulse Ox O2 Delivery O2 Flow Rate FiO2 04/30/21 07:45 93 Room Air 04/30/21 07:00 98.4 91 18 145/65 (91) 98.4 04/29/21 07:00 ROS: No Nausea, No Chest Pain (nc at ) General: Alert, No acute distress HEENT: Other Lungs: Crackles Cardiovascular: S1, S2 Abdomen: Soft Neuro Exam: Alert Extremities: Other Skin: Warm Labs Laboratory Tests Test 04/28/21 12:25 04/29/21 07:30 04/30/21 05:45 Prothrombin Time 27.4 SEC (11.7-14.0) 25.0 SEC (11.7-14.0) 23.0 SEC (11.7-14.0) Prothromb Time International Ratio 2.6 (0.8-1.1) 2.3 (0.8-1.1) 2.1 (0.8-1.1) White Blood Count 14.4 x10^3/uL (4.0-11.0) Red Blood Count 3.70 x10^6/uL (3.50-5.40) Hemoglobin 10.6 g/dL (12.0-15.5) Hematocrit 32.5 % (36.0-47.0) Mean Corpuscular Volume 88 fL (79-100) Mean Corpuscular Hemoglobin 29 pg (25-35) Mean Corpuscular Hemoglobin Concent 33 g/dL (31-37) Red Cell Distribution Width 16.1 % (11.5-14.5) Platelet Count 261 x10^3/uL (140-400) Neutrophils (%) (Auto) 82 % (31-73) Lymphocytes (%) (Auto) 10 % (24-48) Monocytes (%) (Auto) 7 % (0-9) Eosinophils (%) (Auto) 0 % (0-3) Basophils (%) (Auto) 0 % (0-3) Neutrophils # (Auto) 11.8 x10^3/uL (1.8-7.7) Lymphocytes # (Auto) 1.5 x10^3/uL (1.0-4.8) Monocytes # (Auto) 1.1 x10^3/uL (0.0-1.1) Eosinophils # (Auto) 0.0 x10^3/uL (0.0-0.7) Basophils # (Auto) 0.0 x10^3/uL (0.0-0.2) Sodium Level 136 mmol/L (136-145) Potassium Level 3.3 mmol/L (3.5-5.1) Chloride Level 102 mmol/L (98-107) Carbon Dioxide Level 23 mmol/L (21-32) Anion Gap 11 (6-14) Blood Urea Nitrogen 22 mg/dL (7-20) Creatinine 1.0 mg/dL (0.6-1.0) Estimated GFR (Cockcroft-Gault) 66.3 Glucose Level 110 mg/dL (70-99) Calcium Level 8.7 mg/dL (8.5-10.1) Magnesium Level 1.8 mg/dL (1.8-2.4) Laboratory Tests Test 04/30/21 05:45 Prothrombin Time 23.0 SEC (11.7-14.0) Prothromb Time International Ratio 2.1 (0.8-1.1) Medications Active Scripts Medications Dose Route/Sig Max Daily Dose Days Date Category Hydralazine Hcl 100 Mg Tablet 1 Tab PO TID 03/30/21 Reported Losartan Potassium 100 Mg Tablet 100 Mg PO DAILY 03/30/21 Reported Amlodipine Besylate 10 Mg Tablet 10 Mg PO DAILY 30 03/30/21 Rx [Warfarin Per Pharmacy] 5 1 Each MC PRN DAILY PRN 14 03/30/21 Rx Hydrocodone-Apap 5-325 (Hydrocodone Bit/Acetaminophen) 1 Tab Tablet 1 Tab PO PRN Q4HRS PRN 10 03/30/21 Rx [place] 5-325 Tablet (Acetaminophen/Hydrocodone Bitart) 1 Each Tablet 0.5-1 Tab PO PRN Q6HRS PRN 02/01/19 Rx Orphenadrine Citrate 100 Mg Tablet.er 1 Tab PO BID 02/01/19 Rx Prednisone 20 Mg Tablet 2 Tab PO DAILY 02/01/19 Rx Coumadin (Warfarin Sodium) 3 Mg Tablet 1 Tab PO DAILY 07/16/18 Reported Atorvastatin Calcium 20 Mg Tablet 1 Tab PO DAILY 11/15/16 Reported Metoprolol Tartrate 25 Mg Tablet 1 Tab PO BID 11/15/16 Reported Impression . IMPRESSION: 1. Acute respiratory failure secondary to acute diastolic congestive heart failure. 2. Abnormal chest x-ray. 3. Acute diastolic congestive heart failure. 4. Atrial fibrillation, on Coumadin. 5. Smoker, suspect she has chronic obstructive pulmonary disease. 6. Obesity, snoring, excessive daytime sleepiness, suspect she has obstructive sleep apnea-hypopnea syndrome. 7. Recent COVID pneumonia. 8. Peripheral arterial disease. 9. Hypokalemia. Plan . PLAN AND RECOMMENDATIONS: 1. Titrate FiO2 to keep O2 saturation 90%. She would require 6-minute walk at discharge. 2. I had a long discussion with her regarding smoking cessation. I have advised her to stop smoking forever. 3. Keep intake less than output. Agree with Lasix. Monitor potassium and creatinine. 4. Replaced potassium. 5. bronchodilator, Atrovent only. She has AFib. Avoid albuterol. need pfts as outpt 6. Continue Coumadin. Adjust dose per INR. 7. 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 I do recommend sleep study as an outpatient. discussed w RACHEAL Hope MD Apr 30, 2021 08:10
--- NOTE | 2021-04-30 08:39 | PDOC ---
[facility] PROGRESS NOTE Date of Service DOS: DATE: 04/30/21 TIME: 08:33 Chief Complaint Chief Complaint Acute hypoxic respiratory failure Bilateral pneumonia, possible gram-negative organisms Acute COPD exacerbation Elevated BNP, there is moderate cardiomegaly no signs of fluid overload likely due to chronic hypoxia Complication of COVID-19 infection History of atrial fibrillation on Coumadin History of CAD History of hypertension Moderate protein malnutrition History of PVD Tobacco use IV Lasix x1 time today. We will switch azithromycin to doxycycline due to history of atrial fibrillation Continue empiric IV antibiotics O2 supplementation as needed to maintain O2 saturations between 88 to 92% Pulmonology consult Cardiology consult Pending MRSA and Legionella urine antigen Warfarin for DVT prophylaxis Protonix if on steroids GI prophylaxis ADA diet CODE STATUS full Discussed with RN and SW Disposition inpatient management as above DPOA: Daughter History of Present Illness History of Present Illness 70-year-old female with past medical history of CAD, hypertension and a [id number] smoking history who continues to smoke about half a pack per day. Patient states that she had a Covid test done last month but has not felt well since that time. She has had increased nonproductive cough. She also has been having worsening shortness of breath that started yesterday. She also does complain of some lower extremity edema. Denies any fevers, chest pain, abdominal pain, diarrhea, dysuria or hematuria or constipation. 04/29/2021 No acute events overnight. Patient notices marked improvement after Lasix dose. Currently saturating 99% on room air. We will repeat 1 more dose of IV Lasix. Anticipate discharge in the next 24 hours. Patient's chart, labs, images were reviewed and discussed with RN 04/30/2021: Afebrile, still breathing on room air. Echocardiogram from 04/24/2021 showed normal LV systolic function, EF 55 to 60%. States her shortness of breath and leg swelling has resolved with Lasix; she is requesting prescription of Lasix upon discharge. Will obtain 6-minute walk today. Recommended close follow-up with PCP in the next 5 to 7 days. Greater than 30 minutes spent managing the discharge this patient. Vitals/I&O Vitals/I&O: Vital Signs Date Time Temp Pulse Resp B/P (MAP) Pulse Ox O2 Delivery O2 Flow Rate FiO2 04/30/21 07:45 93 Room Air 04/30/21 07:00 98.4 91 18 145/65 (91) 98.4 04/29/21 07:00 I & O 04/29/21 04/29/21 04/30/21 15:00 23:00 07:00 Intake Total 240 ml 450 ml 320 ml Balance 240 ml 450 ml 320 ml Physical Exam General: Alert, mild distress Heart: Other (Irregularly irregular) Lungs: Crackles Abdomen: Normal bowel sounds Extremities: Other (+1 bilateral pedal edema) Skin: No rashes Labs Labs: Laboratory Tests Test 04/30/21 05:45 Prothrombin Time 23.0 SEC (11.7-14.0) Prothromb Time International Ratio 2.1 (0.8-1.1) Assessment and Plan Assessmemt and Plan Problems Medical Problems: (1) Dyspnea Status: Acute (2) Elevated brain natriuretic peptide (BNP) level Status: Acute (3) Hypoxia Status: Acute (4) Person under investigation for COVID-19 Status: Acute Comment Review of Relevant I have reviewed the following items jamari (where applicable) has been applied. Medications: Current Medications Medications (Trade) Dose Ordered Sig/Rosa Route PRN Reason Start Time Stop Time Status Last Admin Dose Admin Azithromycin 500 mg/Sodium Chloride 250 ml @ 250 mls/hr Q24H IV 04/29/21 09:00 04/29/21 11:36 DC 04/29/21 09:03 Ceftriaxone Sodium (Rocephin) 1 gm Q24H IVP 04/29/21 09:00 04/30/21 08:59 04/29/21 09:03 Prednisone (Prednisone) 40 mg DAILY PO 04/29/21 09:00 04/29/21 09:04 Doxycycline Hyclate (Vibra-Tab) 100 mg BID PO 04/29/21 21:00 04/29/21 21:14 Furosemide (Lasix) 40 mg 1X ONCE IVP 04/29/21 11:45 04/29/21 11:46 DC 04/29/21 12:21 Potassium Chloride (Klor-Con) 40 meq BID PO 04/29/21 21:00 04/30/21 20:59 04/29/21 21:15 Lactobacillus Rhamnosus (Culturelle) 1 cap BID PO 04/29/21 21:00 04/29/21 21:14 Justifications for Admission Other Justification KILEY MCCORD MD Apr 30, 2021 08:39
[2021-04-30] MEDS ORDERED: ALBUTEROL SULFATE 2.5 MG/3 ML NEBU. NEB PRN (08:45)
[2021-04-30] MEDS: DOXYCYCLINE HYCLATE 100 MG TABLET PO SCH (09:14)
[2021-04-30] MEDS: METOPROLOL TART IMMED RELEASE 25 MG TABLET. PO SCH (09:14)
[2021-04-30] MEDS: LACTOBACILLUS RHAMNOSUS GG 1 CAPSULE. PO SCH (09:15)
[2021-04-30] MEDS: LOSARTAN POTASSIUM 50 MG TABLET. PO SCH (09:15)
[2021-04-30] MEDS: POTASSIUM CHLORIDE 20 MEQ TABLET.ER. PO SCH (09:15)
[2021-04-30] MEDS: predniSONE 20 MG TABLET PO SCH (09:15)
[2021-04-30] MEDS: NICOTINE 7MG PATCH. TD SCH (09:16)
[2021-04-30 10:30] VITALS: BP 137/74
--- NOTE | 2021-04-30 12:09 | PDOC ---
VIANEY BARCLAY VP [employer]GR[employer] 04/30/21 1209: CARDIO Progress Notes Date and Time Date of Service 04/30/21 Time of Evaluation 1210 Subjective Subjective: No Chest Pain, No shortness of breath, No Palpitations Vitals Vitals Vital Signs Date Time Temp Pulse Resp B/P (MAP) Pulse Ox O2 Delivery O2 Flow Rate FiO2 04/30/21 11:41 94 Room Air 04/30/21 10:30 98.1 86 18 137/74 (95) 98.1 04/29/21 07:00 Weight Weight [ ] Input and Output Intake and Output Intake and Output 04/30/21 07:00 Intake Total 1010 ml Balance 1010 ml Intake Oral 760 ml IV Total 250 ml # Voids 3 Laboratory Labs Laboratory Tests Test 04/30/21 05:45 Prothrombin Time 23.0 SEC (11.7-14.0) Prothromb Time International Ratio 2.1 (0.8-1.1) Microbiology Micro Microbiology 04/28/21 Blood Culture - Preliminary, Resulted NO GROWTH AFTER 2 DAYS Physical Exam HEENT: Neck Supple W Full Motion Chest: Symmetric LUNGS: Clear to Auscultation Heart: RRR Abdomen: Soft N/T Extremities: No Edema Neurology: alert, oriented, follow commands Assessment Assessment 1. Acute respiratory failure with acute CHF, COPD. S/p recent COVID PNA. Negative this admission. 2. Acute on chronic diastolic CHF; echo with preserved LV systolic function. improved s/p IV diuresis 3. AFIB; persistent versus paroxysmal. rate controlled. Chronic OAC with warfarin. INR 2.1 4. Hypertension 5. CAD s/p PCI/stent to RCA 2011 6. PAD s/p [employer]/stent. No reported claudication 7. Hyperlipidemia; statin 8. Hypokalemia Recommendations Lasix PRN Discussed 2000cc FR; patient was consuming about 4L per day Metoprolol for rate control Warfarin for stroke prophylaxis Secondary prevention Supportive care Follow up in our office with Dr. Fierro as scheduled. Justicifation of Admission Dx: Justifications for Admission: Justification of Admission Dx: Yes CATRACHITO FIERRO MD 05/01/21 1433: CARDIO Progress Notes Assessment Assessment Patient seen and examined 04/30/2021. Agree with MARZIPAN MOLDER's assessment and plan. Acute on chronic diastolic heart failure better compensated Persistent atrial fibrillation rate controlled, continue warfarin for stroke prophylaxis CAD/PVD status clinically stable Okay for DC from cardiac standpoint and follow-up as scheduled VIANEY BARCLAY APRN Apr 30, 2021 12:09 CATRACHITO FIERRO MD May 01, 2021 14:33
--- NOTE | 2021-04-30 12:22 | NUR ---
SW following. Discussed with RN, pt from home, room air, cardiac diet, COVID-19 negative. 6 minute walk ordered. RN advised no SW needs at this time, anticipates possible discharge home today. SW will continue to follow.
--- NOTE | 2021-04-30 12:55 | NUR ---
Pharmacy Warfarin Dosing Note S:Pharmacy consulted to assist with anticoagulation therapy started with target INR: 2 -3 O:BUSTER ODOM is a 70 year old F with Atrial Fibrillation LABS: Last INR: 2.1 Last HGB: 10.6 Last HCT: 32.5 Last PLT: 261 Last dose of 3 mg given on 04/29/21 at 1738 Previous Regimen: 3 mg/day Vitamin K given: N Drug Interaction Changes: None Ongoing Drug Interactions: A:INR of 2.1 is within desired range. Target range for this patient is: 2 -3 P: Warfarin dose: 4 mg Today at 1600 Bridge Therapy: None Next INR due IN AM Pharmacy anticoagulation service will continue to follow. VAMSI BROWN, [facility], 04/30/21 5810
--- NOTE | 2021-04-30 13:41 | PDOC3 ---
Discharge Summary Visit Information Date of Admission: Apr 28, 2021 Date of Discharge: Apr 30, 2021 Final Diagnosis Problems Medical Problems: (1) Dyspnea Status: Acute (2) Elevated brain natriuretic peptide (BNP) level Status: Acute (3) Hypoxia Status: Acute (4) Person under investigation for COVID-19 Status: Acute Brief Hospital Course Allergies Allergies Coded Allergies Type Severity Reaction Last Updated Verified No Known Drug Allergies 07/13/18 No Vital Signs Vital Signs Date Time Temp Pulse Resp B/P (MAP) Pulse Ox O2 Delivery O2 Flow Rate FiO2 04/30/21 11:41 94 Room Air 04/30/21 10:30 98.1 86 18 137/74 (95) 98.1 04/29/21 07:00 Lab Results Laboratory Tests Test 04/29/21 07:30 04/30/21 05:45 White Blood Count 14.4 x10^3/uL (4.0-11.0) Red Blood Count 3.70 x10^6/uL (3.50-5.40) Hemoglobin 10.6 g/dL (12.0-15.5) Hematocrit 32.5 % (36.0-47.0) Mean Corpuscular Volume 88 fL (79-100) Mean Corpuscular Hemoglobin 29 pg (25-35) Mean Corpuscular Hemoglobin Concent 33 g/dL (31-37) Red Cell Distribution Width 16.1 % (11.5-14.5) Platelet Count 261 x10^3/uL (140-400) Neutrophils (%) (Auto) 82 % (31-73) Lymphocytes (%) (Auto) 10 % (24-48) Monocytes (%) (Auto) 7 % (0-9) Eosinophils (%) (Auto) 0 % (0-3) Basophils (%) (Auto) 0 % (0-3) Neutrophils # (Auto) 11.8 x10^3/uL (1.8-7.7) Lymphocytes # (Auto) 1.5 x10^3/uL (1.0-4.8) Monocytes # (Auto) 1.1 x10^3/uL (0.0-1.1) Eosinophils # (Auto) 0.0 x10^3/uL (0.0-0.7) Basophils # (Auto) 0.0 x10^3/uL (0.0-0.2) Prothrombin Time 25.0 SEC (11.7-14.0) 23.0 SEC (11.7-14.0) Prothromb Time International Ratio 2.3 (0.8-1.1) 2.1 (0.8-1.1) Sodium Level 136 mmol/L (136-145) Potassium Level 3.3 mmol/L (3.5-5.1) Chloride Level 102 mmol/L (98-107) Carbon Dioxide Level 23 mmol/L (21-32) Anion Gap 11 (6-14) Blood Urea Nitrogen 22 mg/dL (7-20) Creatinine 1.0 mg/dL (0.6-1.0) Estimated GFR (Cockcroft-Gault) 66.3 Glucose Level 110 mg/dL (70-99) Calcium Level 8.7 mg/dL (8.5-10.1) Magnesium Level 1.8 mg/dL (1.8-2.4) Laboratory Tests Test 04/30/21 05:45 Prothrombin Time 23.0 SEC (11.7-14.0) Prothromb Time International Ratio 2.1 (0.8-1.1) Brief Hospital Course Ms. Acharya is a 70 old female who presented with acute diastolic CHF exac erbation, COPD exacerbation, acute respiratory failure with hypoxia. Consultation placed to cardiology and pulmonology. She was treated with bronchodilators, prednisone, doxycycline, and Lasix with improvement of her shortness of breath and leg swelling. Echocardiogram from 04/24/2021 showed normal LV systolic function, EF 55 to 60%. She is requesting as needed Lasix and nicotine patch upon discharge. We will also discharged on short course of doxycycline and prednisone. Recommended close follow-up with PCP in the next 5 to 7 days. Discharge Information Condition at Discharge: Improved Follow Up: Weeks Disposition/Orders: D/C to Home Scheduled Amlodipine Besylate (Amlodipine Besylate) 10 Mg Tablet, 10 MG PO DAILY for HTN for 30 Days, #30 Prescribed by: MARIANNA MERAZ on 03/30/21 1314 Last Action: Continued on 04/28/21 1111 by JOSE JUAN STOLL MD Atorvastatin Calcium (Atorvastatin Calcium) 20 Mg Tablet, 1 TAB PO DAILY, #30 Ref 5 (Reported) Entered as Reported by: Risa Santos on 4/14/17 0834 Last Action: Continued on 04/28/21 1111 by JOSE JUAN STOLL MD Hydralazine Hcl (Hydralazine Hcl) 100 Mg Tablet, 1 TAB PO TID for HTN, #90 Ref 5 (Reported) Entered as Reported by: LISA DIAZ on 03/30/211642 Losartan Potassium (Losartan Potassium) 100 Mg Tablet, 100 MG PO DAILY for HYPERTENSION, (Reported) Entered as Reported by: LISA DIAZ on 03/30/21 164 Last Action: Converted on 04/28/21 1111 by JOSE JUAN STOLL MD Metoprolol Tartrate (Metoprolol Tartrate) 25 Mg Tablet, 1 TAB PO BID, #180 Ref 1 (Reported) Entered as Reported by: Risa Santos on 11/15/16833 Last Action: Continued on 04/28/21 1111 by JOSE JUAN STOLL MD Orphenadrine Citrate (Orphenadrine Citrate) 100 Mg Tablet.er, 1 TAB PO BID, #20 Prescribed by: ENRIQUETA HICKS D.O. on 02/01/19225 Prednisone (Prednisone) 20 Mg Tablet, 2 TAB PO DAILY, #8 Prescribed by: ENRIQUETA HICKS D.O. on 02/01/19225 Last Action: Continued on 04/28/21 1111 by JOSE JUAN STOLL MD Warfarin Sodium (Coumadin) 3 Mg Tablet, 1 TAB PO DAILY for blood thinner, #30 (Reported) Entered as Reported by: JUAN TOSCANO on 07/16/18 1210 Last Action: Continued on 04/28/21 1111 by JOSE JUAN STOLL MD Scheduled PRN Hydrocodone Bit/Acetaminophen (Hydrocodone-Apap 5-325 ) 1 Tab Tablet, 1 TAB PO PRN Q4HRS PRN for MODERATE-SEVERE PAIN for 10 Days, #20 Prescribed by: BHANU AGOSTO on 03/30/21 1203 Hydrocodone/Apap 5-325 ([place] 5-325 Tablet) 1 Each Tablet, 0.5-1 TAB PO PRN Q6HRS PRN for PAIN, #10 Ref 0 Prescribed by: ENRIQUETA HICKS D.O. on 02/01/19225 [Warfarin Per Pharmacy] 5 , 1 EACH MC PRN DAILY PRN for SEE COMMENTS for 14 Days, #14 Prescribed by: BHANU AGOSTO on 03/30/21 1202 Last Action: Converted on 04/28/21 1111 by JOSE JUAN STOLL MD Justicifation of Admission Dx: Justifications for Admission: Justification of Admission Dx: Yes KILEY MCCORD MD Apr 30, 2021 13:41
[2021-04-30] MEDS ORDERED: Nicotine 7MG TD (13:55)
[2021-04-30] MEDS ORDERED: DOXY100T PO (13:55)
[2021-04-30] MEDS ORDERED: PRED20TA PO (13:55)
[2021-04-30] MEDS ORDERED: FURO-68 PO (13:56)
[2021-04-30 15:00] VITALS: BP 140/69
--- NOTE | 2021-04-30 15:00 | NUR ---
Discharge Note: BUSTER ODOM Discharge instructions and discharge home medications reviewed with Patient and a copy given. All questions have been answered and understanding verbalized. The following instructions and handouts were given: discharge instructions, new prescription, education and follow up recommendations. Discontinued lines and drains: Peripheral IV intact. Patient discharged to Home or Self Care withFamily Membervia Wheelchair
[2021-04-30] MEDS ORDERED: WARFARIN 4 MG TABLET. PO ONE (16:00)
== END 2021-04-30 15:00 | disposition home or self-care (01) ==
LOC: ER 23:16 → 5 NORTH 04-28 00:43
PROVIDERS: ADMIT Internal Medicine; ATTEND Internal Medicine
DX: J96.01 Acute respiratory failure with hypoxia (principal); I11.0 Hypertensive heart disease with heart failure; I50.33 Acute on chronic diastolic (congestive) heart failure; J44.1 Chronic obstructive pulmonary disease with (acute) exacerbation; Z20.822 Contact with and (suspected) exposure to COVID-19; J44.0 Chronic obstructive pulmonary disease with (acute) lower respiratory infection; J18.9 Pneumonia, unspecified organism; I48.19 Other persistent atrial fibrillation; I73.9 Peripheral vascular disease, unspecified; E44.0 Moderate protein-calorie malnutrition; E66.9 Obesity, unspecified; E78.5 Hyperlipidemia, unspecified; E87.6 Hypokalemia; I25.10 Atherosclerotic heart disease of native coronary artery without angina pectoris; I70.0 Atherosclerosis of aorta; F17.200 Nicotine dependence, unspecified, uncomplicated; Z87.01 Personal history of pneumonia (recurrent); Z90.710 Acquired absence of both cervix and uterus; Z79.01 Long term (current) use of anticoagulants; Z96.649 Presence of unspecified artificial hip joint; Z98.62 Peripheral vascular angioplasty status; Z95.5 Presence of coronary angioplasty implant and graft; Z23 Encounter for immunization
CPT/HCPCS: 36415; 71045; 80048; 80053; 83605; 83735; 83880; 84484; 85025; 85610; 87040; 87426; 87449; 87641; 90686; 93005; 94640; 94760; 96365; 96366; 96375; 96376; 99285; G0008; G0378; J0456; J0696; J1100; J1940; J7050; J7512; J7644; U0003; U0005; 90471; G0379; J7030

== ENCOUNTER → 2021-07-18 | Outpatient (CLI) | payer MEDICARE ==
[~2021-07-18] MED LIST changes: +DOXY100T PO; +FURO-68 PO; +Nicotine 7MG TD; +REGADENOSON 0.4 MG/5 ML DISP.SYRIN. IV ONE
--- NOTE | 2021-07-18 12:51 | RAD ---
MR#: [id number] Date of Study: 07/18/2021 Ordering Physician: CATRACHITO FIERRO, Referring Physician: CATRACHITO FIERRO, Tech: Eugenie Nelson, BARNEY, RVT, RTR APPROVED REPORT Patient Location: OUT-PATIENT Indications PAD Risk Factors Hypertension Surgery/Intervention Stent : Site : BILATERAL VELOCITY AND DOPPLER WAVEFORM ANALYSIS RIGHT cm/secWaveformSeverity LEFT cm/secWaveform Severity pCFA 194.1pCFA 230.0 Prof Fem Art. 141.4Prof Fem Art. 202.8 Fem Art Prox. 349.6Fem Art Prox. Occluded Fem Art Mid. 60.2Fem Art Mid. Occluded Fem Art Dist. 79.3Fem Art Dist. 19.6 Pop Art(AK) 68.3Pop Art(AK) 56.5 NURSING SCHEDULER Prox. 60.6PTA Prox. 34.7 NURSING SCHEDULER Dist. 106.2PTA Dist. 37.0 Per Art Prox. 46.3Per Art Prox. 39.6 ULISSES Prox. 104.4ATA Prox. 25.1 DPA 39DPA 33 Findings Grayscale images of bilateral lower extremity arteries showed moderate diffuse atherosclerosis with s evere atherosclerotic plaque in bilateral common femoral arteries. Spectral waveform and color duplex analysis was performed. The right common femoral artery showed elevated velocities with biphasic wav eform suggesting high-grade stenosis. The proximal portion of the right superficial femoral artery sh owed significantly elevated velocities within the stent with monophasic waveforms suggesting high-gra de in-stent restenosis. The mid and distal segments of the right SFA and the popliteal arteries show diminished flow secondary to inflow disease. There is three-vessel runoff below the knee right lower extremity The left lower extremity showed significantly elevated velocities in left common femoral and deep fem oral arteries with monophasic waveforms suggesting high-grade stenosis. The proximal and mid segments of left superficial femoral artery showed 100% occlusion with diminished velocities distally. There appears to be three-vessel runoff below the knee. Critical Notification Critical Value: Yes <Conclusion> The right lower extremity showed high-grade stenosis involving right common femoral artery and high-g rade in-stent restenosis involving the right superficial femoral artery. The left lower extremity phillip wed high-grade stenosis involving left common and deep femoral arteries and 100% occluded proximal to mid segment of the left superficial femoral artery. Signed by : Catrachito Fierro, Electronically Approved : 07/18/2021 12:50:33
--- NOTE | 2021-07-18 15:56 | RAD ---
MR#: [id number] Date of Study: 07/18/2021 Ordering Physician: CATRACHITO STODDARD, Referring Physician: VANESSA MONROY Tech: ESTELLE Capps ARRT (R) (N) APPROVED REPORT Test Type: Pharmacological Stress Nurse/Tech: Radha Alcocer RN Test Indications: Coronary Artery Disease Cardiac History: Hypertension,smoker/COPD Medications: See Electronic Medical Record Medical History: See Electronic Medical Record Resting ECG: SR with 1st degree Resting Heart Rate: 81 bpm Resting Blood Pressure: 126/70mmHg Pretest Chest Pain: No chest pain Nurse/Tech Notes S1,S2 and lungs diminished in the bases. Recent recovery from COVID. Consent: The procedure was explained to the patient in lay terms. Informed consent was witnessed. Bhupinder eout was entered into [facility]. History and Stress Test performed by RT Bailey (R) (N) Pharm. Details Pharmacologic stress testing was performed using 0.4mg per 5ml of regadenoson given intravenously ove r 7-10 seconds. Stress Symptoms Dyspnea,headache POST EXERCISE Reason for Termination: Infusion complete Max HR: 158 bpm Max Blood Pressure: 141/61mmHg Blood Pressure response to exercise: Normal blood pressure response during stress. Heart Rate response to exercise: WNL Chest Pain: No. Arrhythmia: No. ST Change: No. INTERPRETATION Stress EKG Conclusion: Baseline EKG showed atrial fibrillation. Nondiagnostic changes at peak stress . No other arrhythmias Imaging Protocol IMAGE PROTOCOL: Rest Tc-99m/stress Tc-99m 1 day Rest: Stress: Viability: Radiopharm.Tc99m ExyhiblqeLa86m Sestamibi Dose10.5mCi 33mCi Img Date 07/18/2021 07/18/2021 Inj-Img [id number]. 60min. Rest Admin Site:IV - Left AntecubitalAdministrator:RT Darrick Avalos)(N) Stress Admin Site: IV - Left AntecubitalAdministrator: ESTELLE Capps, MARCIAL (R)(N) STRESS DATA End Diast. Vol.90.0mlAv. Heart Rate75.0bpm End Syst. Vol.28.0mlCO Index BSA4.7L/min Myocardial Dvoj651.0gEject. Zsmkosex57.0% Stress Rates Pk. Fill Rate3.85EDV/secLVtime Pk. Fill 137.18msec Pk. Empty Rate3.91ESV/secLVtime Pk. Tavjd029.74msec 1/3 Pk. Fill1.68EDV/sec Stress Scores Regional WT0.00Summed WT3.00 Regional WM0.00Summed WM0.00 Study quality was good. Left Ventricular size was Normal at Rest and Stress. Lung uptake was . Left Ventricular ejection fraction is 70%. The rest and stress images show normal perfusion, normal contraction and thickening. LV Perf. Quant 17 Seg. SSS4.00 17 Seg. SRS0.00 17 Seg. SDS4.00 Stress Defect Extent (% LAD)6.30Rest Defect Extent (% LAD)3.10Rev. Defect Extent (% LAD)2.50 Stress Defect Extent (% LCX) 7.50Rest Defect Extent (% LCX)0.00Rev. Defect Extent (% LCX)7.50 Stress Defect Extent (% RCA)0.00Rest Defect Extent (% RCA)0.00Rev. Defect Extent (% RCA)0.00 Stress Defect Extent (% CHAN)3.50Rest Defect Extent (% CHAN)1.70Rev. Defect Extent (% CHAN)2.20 Conclusion 1. Regadenoson cardioisotope stress test did not show any evidence of ischemia or infarct. 2. Normal left ventricular systolic function with ejection fraction calculated at 70%. 3. Low risk for cardiac events. Signed by : Catrachito Stoddard, Electronically Approved : 07/18/2021 15:56:26
== END ==
LOC: NM 08:36
PROVIDERS: ATTEND Internal Medicine Cardiovascular Disease
DX: I70.203 Unspecified atherosclerosis of native arteries of extremities, bilateral legs (principal); I25.10 Atherosclerotic heart disease of native coronary artery without angina pectoris
CPT/HCPCS: 78452; 93017; 93925; A9500; J2785

== ENCOUNTER 2021-08-14 06:56 | Outpatient (CLI) | payer MEDICARE ==
[2021-08-14] VITALS (20 sets, daily range): BP systolic 78–140; BP diastolic 54–90
[~2021-08-14] VITALS: Ht 162.6 cm; Wt 90.0 kg
[~2021-08-14 06:56] MED LIST changes: -REGADENOSON 0.4 MG/5 ML DISP.SYRIN. IV ONE
[2021-08-14] MEDS ORDERED: IODIXANOL 320 MG/ML 100 ML VIAL. ONE (07:36)
[2021-08-14 07:45] LABS: HEMATOCRIT 43.3 % (36.0-47.0); HEMOGLOBIN 14.2 g/dL (12.0-15.5); RED BLOOD COUNT 4.99 x10^6/uL (3.50-5.40); RED CELL DISTRIBUTION WIDTH 15.7 % (11.5-14.5)
[2021-08-14 07:53] LABS: CALCIUM 9.8 mg/dL (8.5-10.1); CREATININE 1.2 mg/dL (0.6-1.0); GFR 53.7; POTASSIUM 3.4 mmol/L (3.5-5.1)
[2021-08-14 08:09] LABS: PROTHROMBIN TIME PATIENT 25.9 SEC (11.7-14.0)
[2021-08-14] MEDS ORDERED: LIDOCAINE 1% PF 2 ML VIAL. ONE (08:18)
[2021-08-14] MEDS ORDERED: NITROGLYCERIN 200 MCG/2 ML SYRINGE FOR CATH/VASC LAB. ONE ×2 (08:19→09:12)
[2021-08-14] MEDS ORDERED: HYDR-2145 PO (08:20)
[2021-08-14] MEDS ORDERED: MIDAZOLAM HCL/PF 2 MG/2 ML VIAL. ONE ×2 (08:30→09:13)
[2021-08-14] MEDS ORDERED: HEPARIN for IV BOLUS 10,000 UNIT/10 ML VIAL. ONE (08:30)
[2021-08-14] MEDS ORDERED: VERAPAMIL 5 MG/2 ML VIAL. ONE ×2 (08:30→09:13)
[2021-08-14] MEDS ORDERED: fentaNYL PF VIAL 100 MCG/2 ML VIAL ONE ×4 (08:30→10:36)
[2021-08-14] MEDS ORDERED: diphenhydrAMINE 50 MG/ML VIAL ONE (08:51)
[2021-08-14] MEDS ORDERED: LIDOCAINE 1% PF 2 ML VIAL. INJ ONE (09:00)
[2021-08-14] MEDS ORDERED: NITROGLYCERIN 200 MCG/2 ML SYRINGE FOR CATH/VASC LAB. IART ONE ×2 (09:00→09:30)
[2021-08-14] MEDS ORDERED: HEPARIN for IV BOLUS 10,000 UNIT/10 ML VIAL. IART ONE ×2 (09:00→09:30)
[2021-08-14] MEDS ORDERED: diphenhydrAMINE 50 MG/ML VIAL IVP ONE (09:00)
[2021-08-14] MEDS ORDERED: fentaNYL PF VIAL 100 MCG/2 ML VIAL IV ONE (09:00)
[2021-08-14] MEDS ORDERED: VERAPAMIL 5 MG/2 ML VIAL. IART ONE ×2 (09:00→09:30)
[2021-08-14] MEDS ORDERED: MIDAZOLAM HCL/PF 2 MG/2 ML VIAL. IV ONE (09:00)
[2021-08-14] MEDS ORDERED: IODIXANOL 320 MG/ML 100 ML VIAL. IV ONE (11:15)
[2021-08-14] MEDS ORDERED: IV 1/2 NORMAL SALINE 1,000 ML IV SCH (12:00)
--- NOTE | 2021-08-14 12:00 | NUR ---
AT 1155, 2CC AIR REMOVED FROM RIGHT RADIAL TR BAND PER PROTOCOL. AT 1200, RIGHT ARM REASSESSED, BLEEDING NOTED TO RIGHT RADIAL SITE. A TOTAL OF 5CC AIR REINFLATED TO OBTAIN HEMOSTASIS. RIGHT RADIAL SITE CLEANED, TR BAND WITH 13CC AIR AT THIS TIME. VSS. WILL CONTINUE TO MONITOR.
--- NOTE | 2021-08-14 12:17 | CARD ---
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 Aortogram with bilateral lower extremity runoff via right transradial ruben rausch 2. Successful balloon SHEEP HERDER to in-stent restenosis involving the right superficial femoral artery 3. 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 CASE TECHNIQUE After explaining the risks, benefits, and alternative options, informed consent was obtained from the patient. IV conscious sedation was used throughout procedure with appropriate monitoring and was per formed in the presence of a registered nurse who was an independent trained observer other than the mary grey performing the procedure. During this case, Fluoroscopy and low osmolar contrast were used f or imaging. Specimen(s) Removed: No Estimated Blood loss: 15 cc's. PROCEDURE NARRATIVE After explaining the risk, benefits and alternative options, informed consent was obtained from patie nt. Patient was brought to the cardiac [facility] and her right wrist was prepped and draped in the us ual fashion after confirming a positive modified Kory's test. Ar[facility]ial [facility] and a six Russian sheath was inserted. A 4F R2P PV multicurve catheter was advance d under fluoroscopic guidance and with the tip positioned in the descending aorta, aortoiliac angiogr aphy was performed. The catheter was then advanced into the right external iliac artery and selectiv e right lower extremity angiography was performed. The catheter was then withdrawn and then advanced into the left external iliac artery and selective left lower extremity angiography was performed. Alejo frank following findings were noted: FINDINGS 1. No significant stenosis involving the distal descending aorta 2. The right common iliac artery showed 30% stenosis. The left common iliac artery showed widely pa tent previously placed stent. 3. The right and left external iliac arteries showed widely patent previously placed stents. 4. No significant stenosis noted in bilateral common femoral arteries. 5. The right superficial femoral artery showed long stented proximal, mid and distal segments. The very proximal segment showed 80% in-stent restenosis. The left superficial femoral artery showed 100 % long chronic total occlusion involving the proximal and mid segments with distal reconstitution fro m collaterals. 6. No significant stenosis involving popliteal arteries bilaterally. 7. There is good three-vessel runoff below the knee bilaterally. INTERVENTION The sheath in the right radial artery was exchanged to a 6 Russian 149 cm destination Glidesheath whic h was advanced over a 0.035 inch stiff angled Glidewire into the right common iliac artery. The in-s tent restenosis in the right superficial femoral artery was crossed with a guidewire and successfully dilated with a 5 x 20 mm R2P Metacross balloon. Follow-up angiography showed resolution of the sten osis to 0% with good distal flow. Subsequently, the destination sheath was advanced to the left comm on iliac artery. With the help of backup support from 200 cm Viper catheter, a long chronic total oc clusion was crossed with the stiff angled Glidewire. Contrast injections distal to the lesion confir med intraluminal location. Multiple inflations were then performed within the long occlusion with 5. 0 x 100 mm R2P Metacross balloon. Follow-up angiography did not show good flow probably from under d ilation of the distal calf. The distal segment was then dilated with 4.0 x 40 mm R2P Metacross ballo on. Following this, the entire lesion was dilated again with a 6.0 x 150 mm R2P Metacross balloon. Follow-up angiography showed overall good results with good distal flow. There were few areas of 30% residual secondary to heavy calcification. Patient tolerated the procedure well. Hemostasis was ac hieved using TR band. There were no immediate complications. Conclusion 1. Widely patent previously placed stents in the left common and external iliac and right external i liac arteries. The long stent in proximal, mid and distal right SFA was mostly patent with a discret e area of 80% in-stent stenosis in the very proximal segment. The left superficial femoral artery sh owed long chronic total occlusion. 2. Successful SHEEP HERDER to the right superficial femoral artery and successful complex SHEEP HERDER to the known ch ronic total occlusion involving the left superficial femoral artery. Recommendations Vascular risk factor modification including regular exercise regimen. Signed by : Catrachito Stoddard, Electronically Approved : 08/14/2021 12:17:42
--- NOTE | 2021-08-14 14:30 | NUR ---
RIGHT RADIAL DRESSING CHANGED AND ARMBOARD REAPPLIED, NO COMPLICATIONS.
--- NOTE | 2021-08-14 15:18 | NUR ---
PIV removed, VS stable. Instructions provided on site care, sedation. Patient verbalized understanding. Instructed to remove armboard 08/15/21 at 1500. RN stressed importance of not using R wrist, to monitor for bleeding. Explained to patient's granddaughter. All belongings taken w/ patient at time of d/c. Granddaughter driving home.
== END 2021-08-14 15:30 | disposition home or self-care (01) ==
LOC: CCL 06:56
PROVIDERS: ATTEND Internal Medicine Cardiovascular Disease
DX: I73.9 Peripheral vascular disease, unspecified (principal); I11.0 Hypertensive heart disease with heart failure; I50.9 Heart failure, unspecified; I48.91 Unspecified atrial fibrillation; E78.00 Pure hypercholesterolemia, unspecified; J44.9 Chronic obstructive pulmonary disease, unspecified; M19.90 Unspecified osteoarthritis, unspecified site; F41.9 Anxiety disorder, unspecified; F32.9 Major depressive disorder, single episode, unspecified; F17.210 Nicotine dependence, cigarettes, uncomplicated; Z90.710 Acquired absence of both cervix and uterus; Z79.899 Other long term (current) drug therapy; Z98.890 Other specified postprocedural states
CPT/HCPCS: 36415; 37224; 75625; 75716; 80048; 85027; 85610; 99152; 99153; C1725; C1769; C1887; C1894; J1200; J1644; J2250; J3010; J3490; Q9967